=== PATIENT | female | born 1980 | race Hispanic/Latino ===

== ENCOUNTER 2019-03-05 22:25 | Emergency (ER) | payer OTHER ==
[2019-03-06] MEDS ORDERED: IBUPROFEN 600 MG TABLET ONE (00:30)
[2019-03-06] MEDS ORDERED: DIPHENHYDRAMINE HCL 25 MG CAPSULE ONE (00:31)
== END 2019-03-06 00:35 | disposition home or self-care (01) ==
LOC: EDH 22:25
DX: S60.464A Insect bite (nonvenomous) of right ring finger, initial encounter (principal); W57.XXXA Bitten or stung by nonvenomous insect and other nonvenomous arthropods, initial encounter; Y93.89 Activity, other specified; Y92.89 Other specified places as the place of occurrence of the external cause; Y99.8 Other external cause status
CPT/HCPCS: 99283; Q0163

== ENCOUNTER 2025-02-23 22:19 | Inpatient (IN) | payer BC ==
[~2025-02-23] VITALS: Ht 157.5 cm; Wt 79.2 kg
[2025-02-23 22:40] LABS: APPEARANCE,URINE CLEAR (CLEAR); GLUCOSE, URINE (UA) NEGATIVE (NEGATIVE); LEUKOCYTE ESTERASE ,URINE 75 Leu/uL (NEGATIVE); NITRATE,URINE NEGATIVE (NEGATIVE); OCCULT BLOOD,URINE NEGATIVE (NEGATIVE)
[2025-02-23 22:45] LABS: ADD UA MICROSCOPIC YES
[2025-02-23 22:48] LABS: SQUAMOUS EPITHELIAL CELL,UR FEW /HPF (0-2)
[2025-02-23 22:52] LABS: RAPID GROUP A STREP negative (NEGATIVE)
[2025-02-23 23:02] LABS: SARS-CoV-2, RNA, NAAT NEGATIVE SARS CoV-2 (NEGATIVE)
[2025-02-23] MEDS: 0.9%NACL 1000ML 1,000 ML IV ONE (23:02)
[2025-02-23 23:03] LABS: INFLUENZA TYPE A Negative For Type A (NEGATIVE); INFLUENZA TYPE B Negative For Type B (NEGATIVE)
[2025-02-23 23:09] LABS: IMMATURE GRANULOCYTE ABSOLUTE 0.01 K/uL (0-1); NUCLEATED RED BLOOD CELLS 0.0 % (0.0-0.19); PLATELET COUNT (AUTO) 170 K/uL (130-400); RED BLOOD CELL COUNT(AUTO) 4.09 MIL/uL (4.00-5.50); RED CELL DISTRIBUTION WIDTH 12.4 % (11.0-15.5); WHITE BLOOD COUNT (AUTO) 3.5 K/uL (4.8-10.8)
[2025-02-23 23:18] LABS: CREATININE 0.7 mg/dL (0.5-1.0); GLOMERULAR FILTR. RATE CALC 108.0 mL/min (>90); GLUCOSE,RANDOM 94.0 mg/dL (70-105); SODIUM SERUM 134.0 mmol/L (136-145); UREA NITROGEN, BLOOD 16.0 mg/dL (7-18)
[2025-02-23 23:22] LABS: ASPARTATE AMINOTRANSFERASE 80.0 U/L (10-37); TOTAL PROTEIN, SERUM 7.3 g/dL (6.0-8.3)
--- NOTE | 2025-02-24 00:22 | ERN ---
ED Note History of Present Illness Stated Complaint: C/O FEVER, HEADACHE,ABD PAIN, CHILLS Chief Complaint: Fever Time Seen by MD: 22:22 Time Seen by Midlevel: 22:22 Dictation: The patient is a 44-year-old female status post cholecystectomy on January 25 and hernia repair who presents to the emergency department with complaints of fevers onset Saturday night. Patient also reports right lower abdominal pain and right upper abdominal pain. Denies any nausea, vomiting, diarrhea. Denies any upper respiratory symptoms. Allergies: Coded Allergies: No Known Drug Allergies (Verified Allergy, 11/15/11) Past Medical History Past Medical History: No Pertinent History Surgical History: Cholecystectomy, Other Surgical History Other: HERNIA REPAIR LMP: Jan 29, 2025 RN Note Reviewed/Agreed w/PFSH: Yes Review of System Dictation Constitutional: Negative for chills, and weight loss positive for fever Eyes: Negative for injury, pain,redness, and discharge ENT: Negative for injury,pain or swelling Cardiovascular: Negative for chest pain, palpitations, and edema Respiratory: Negative for shortness of breath, cough, and wheezing, Abdomen/GI: Negative for nausea, vomiting, diarrhea, and constipation positive for abdominal pain Back: Negative for injury and pain : Negative for injury, bleeding and discharge MS/Extremity: Negative for injury and deformity Skin: Negative for rash, and discoloration Neuro: Negative for headache, weakness, numbness, tingling, and seizure Psych: Negative for suicide ideation, homicidal ideation, and hallucinations Initial Vital Sign VS Vital Signs Date Time Temp Pulse Resp B/P (MAP) Pulse Ox O2 Delivery O2 Flow Rate FiO2 02/23/25 22:22 102.6 104 20 126/82 97 Room Air 02/23/25 22:30 0 21 Physical Exam Dictation Vital Signs reviewed General Appearance: Alert, oriented x 3, no acute distress, well developed, nourished. Head and Face: non-traumatic. Eyes: PERRL, pink conjunctivas, eyelid no trauma, anterior chamber with arcus senilis. Ears: Pinnas intact and no signs of trauma or erythema ear canals clear and no discharge TM no erythema Nose: No discharge, no bleeding. Oropharynx: Mouth normal, tongue pink. pharynx clear,no erythema, tonsils no exudates, no abscesses noted, mucous membrane moist Neck: Supple, non-tender, no thyromegaly, no masses, no JVD, no bruits Breast:Deferred Chest:No tenderness, no crepitus, no paradoxical movement, no retractions Lungs:Clear, well-ventilated, symmetric, no rales, no wheezing, no rhonchi, no stridor, good breath sounds bilaterally Heart: Regular rate, regular rhythm, no murmur, no gallops Vascular: no peripheral edema, Abdomen: Soft, positive bowel sounds, nondistended, no guarding, Right upper quadrant, right lower quadrant tenderness no rebound, no masses no hepatomegaly, no splenomegaly, no Kendall's sign, no hernias. Rectal: Deferred Genital: Deferred Neurological: Normal speech, motor function intact, sensory function intact Musculoskeletal: Neck nontender, full range of motion, back nontender, full range of motion, Extremities: nontender, full range of motion Skin: Color pink, dry, no turgor, no rash, no lacerations, no abrasions, no contusions. Surgical incisions noted to right upper quadrant, no drainage, no erythema Lymphatic: Deferred Results (Laboratory/Radiology) Laboratory/Radiology Laboratory Tests Test 02/23/25 22:23 02/23/25 23:00 Urine Color YELLOW (YELLOW) Urine Appearance CLEAR (CLEAR) Urine pH 6.0 (5.0-8.0) Urine Specific [place] 1.031 (1.001-1.031) Urine Protein 10 mg/dL (NEGATIVE) H Urine Glucose (UA) NEGATIVE mg/dL (NEGATIVE) Urine Ketones 150 mg/dL (NEGATIVE) H Urine Occult Blood NEGATIVE (NEGATIVE) Urine Nitrate NEGATIVE (NEGATIVE) Urine Bilirubin NEGATIVE mg/dL (NEGATIVE) Urine Urobilinogen 2.0 mg/dL (0.2-1.0) H Urine Leukocyte Esterase 75 Liliana/uL (NEGATIVE) H Urine RBC 2-5 /HPF (0-1) H Urine WBC 2-5 /HPF (0-1) H Urine Squamous Epithelial Cells FEW /HPF (0-2) Urine Bacteria RARE /HPF (None Seen) Urine HCG, Qualitative NEGATIVE (NEGATIVE) Influenza Type A Antigen Negative For Type A Influenza Type B Antigen Negative For Type B SARS-CoV-2, RNA, NAAT NEGATIVE SARS CoV-2 Group A Streptococcus Rapid negative (NEGATIVE) White Blood Count 3.5 K/uL (4.8-10.8) L Red Blood Count 4.09 MIL/uL (4.00-5.50) Hemoglobin 12.3 g/dL (12.0-16.0) Hematocrit 36.2 % (36-48) Mean Corpuscular Volume 88.5 fL (79-99) Mean Corpuscular Hemoglobin 30.1 pg (27.0-33.0) Mean Corpuscular Hemoglobin Concent 34.0 g/dL (32.0-36.0) Red Cell Distribution Width 12.4 % (11.0-15.5) Platelet Count 170 K/uL (130-400) Mean Platelet Volume 10.1 fL (7.5-10.5) Immature Granulocyte % (Auto) 0.3 % (0-1) Neutrophils (%) (Auto) 70.8 % (40.0-77.0) Lymphocytes (%) (Auto) 20.2 % (21.0-51.0) L Monocytes (%) (Auto) 8.1 % (3.0-13.0) Eosinophils (%) (Auto) 0.0 % (0.0-8.0) Basophils (%) (Auto) 0.6 % (0.0-5.0) Neutrophils # (Auto) 2.5 K/uL (1.8-7.7) Lymphocytes # (Auto) 0.7 K/uL (1.0-4.8) L Monocytes # (Auto) 0.3 K/uL (0.1-1.0) Eosinophils # (Auto) 0.00 K/uL (0.00-0.70) Basophils # (Auto) 0.02 K/uL (0.00-0.20) Absolute Immature Granulocyte (auto 0.01 K/uL (0-1) Nucleated Red Blood Cells 0.0 % (0.0-0.19) Sodium Level 134 mmol/L (136-145) L Potassium Level 3.6 mmol/L (3.5-5.1) Chloride Level 98 mmol/L (101-111) L Carbon Dioxide Level 25 mmol/L (21-32) Blood Urea Nitrogen 16 mg/dL (7-18) Creatinine 0.7 mg/dL (0.5-1.0) Glomerular Filtration Rate Calc 108 mL/min (>90) Random Glucose 94 mg/dL (70-105) Total Calcium 8.7 mg/dL (8.5-10.1) Total Bilirubin 1.2 mg/dL (0.2-1.0) H Aspartate Amino Transf (AST/SGOT) 80 U/L (10-37) H Alanine Aminotransferase (ALT/SGPT) 150 U/L (12-78) H Alkaline Phosphatase 316 U/L (50-136) H Total Protein 7.3 g/dL (6.0-8.3) Albumin 3.6 g/dL (3.5-5.0) Labs Reviewed?: Yes ED Course ED Course Orders Procedure Category Date Status Time Urinalysis Profile LAB 02/23/25 Complete 22:21 Covid Rna Naat LAB 02/23/25 Complete 22:21 Influenza Type A & B, LAB 02/23/25 Complete Rapid 22:21 Rapid (Group A Strep) LAB 02/23/25 Complete 22:21 ,Urine Test LAB 02/23/25 Complete 22:24 Culture Urine JOSEMANUEL 02/23/25 In Process 22:45 Cbc With Differential LAB 02/23/25 Complete 22:45 Comprehensive LAB 02/23/25 Complete Metabolic Panel 22:45 0.9%Nacl 1000ml (Ns PHA 02/23/25 Complete 1000ml) 23:00 Ct Abdomen/Pelvis CT 02/23/25 Resulted W/Contrast 23:24 Iohexol (Omnipaque) PHA 02/24/25 Complete 01:29 Current Medications Medications (Trade) Dose Ordered Sig/Dionicio Route PRN Reason Start Time Stop Time Status Last Admin Dose Admin Iohexol (Omnipaque) 35,000 mg STK-MED ONCE IV 02/24/25 01:29 02/24/25 01:30 DC Sodium Chloride 1,000 ml @ 0 mls/hr ONCE ONCE IV 02/23/25 23:00 02/23/25 23:01 DC 02/23/25 23:02 Vital Signs Date Time Temp Pulse Resp B/P (MAP) Pulse Ox O2 Delivery O2 Flow Rate FiO2 02/24/25 01:33 98.6 88 20 110/70 97 Room Air* 0 21 02/24/25 00:31 100.8 96 20 108/62 98 Room Air* 0 21 02/23/25 22:30 102.0 98 20 117/68 99 Room Air* 0 02/23/25 22:22 102.6 104 20 126/82 97 Room Air Medical Decision Making MDM The patient is a 44-year-old female status post cholecystectomy on January 25 and hernia repair who presents to the emergency department with complaints of fevers onset Saturday night. Patient also reports right lower abdominal pain and right upper abdominal pain. Denies any nausea, vomiting, diarrhea. Denies any upper respiratory symptoms. CBC showed no leukocytosis, no anemia, chemistry showed elevated liver enzymes, elevated total bilirubin, mild hyponatremia, hypochloremia, normal renal function, serology negative Differential diagnosis: Upper respiratory infection, gastroenteritis, sepsis, appendicitis Rationale: Tests considered and ordered secondary to shared decision making include: labs, ECG and radiology Previous outside records reviewed: Old ER visits. Risk of complication and/or morbidity or mortality of patient management: None Medications-Per medication reconciliation Need for hospitalization: Patient does meet criteria for hospitalization. Need for emergency major/minor surgery: No There are no social concerns with this patient. Prescription drug management Prescriptions will include symptomatic care Patient's prior external medical records from other ER visits were reviewed by me as indicated. Prior testing and results from previous visits were reviewed. Prior tests were taken into account with medical decision making and resource utilization, independent historian/historians were used to obtain complete medical history. I independently interpreted the test that were performed, results were reviewed by me and considered findings on radiology if ordered. Medical management and examination interpretation discussions were had by me wit h other qualified healthcare professionals as indicated for the patient's care. Patient will be admitted under the care of hospitalist group. Spoke to Dr. Ramirez request an MRCP she will be performed. DX & DISP Disposition: Inpatient Decision to Admit Time: 04:19 Departure Impression: Primary Impression: Cholecystitis Additional Impression: Elevated liver enzymes Condition: Stable Referrals: EZ DOMINGUEZ PA-C (PCP) KELTON RICE Feb 24, 2025 00:21 YFN PALMA MD Feb 24, 2025 04:19
[2025-02-24] MEDS ORDERED: IOHEXOL 350 MG/ML 100ML INFUS..BTL IV ONE (01:29)
--- NOTE | 2025-02-24 01:43 | NUR ---
TAKEN TO CT SCAN
--- NOTE | 2025-02-24 03:12 | HMCIMG ---
EXAM: CT Abdomen and Pelvis with IV contrast CLINICAL HISTORY: Pain. TECHNIQUE: Postcontrast thin collimated axial CT images of the abdomen and pelvis were obtained, with sagittal and coronal reformatted images also submitted. CT scan is done according to ALARA (As Low As Reasonably Achievable). COMPARISON: None. FINDINGS: Mild subsegmental atelectasis in the included lungs. Status post cholecystectomy. Mild fatty liver. No focal abnormality within the pancreas, spleen, adrenals, or kidneys. The urinary bladder is empty with questionable mild cystitis. There is a 1.3 cm intramural fibroid around the right side of the uterus. Unremarkable ovaries. No obvious bowel wall thickening, dilatation, or obstruction. No obvious bowel wall thickening, dilatation, or obstruction. Unremarkable appendix. A component of mild constipation is present in the colon. Grossly unremarkable abdominal vessels. No pathological lymphadenopathy in the abdomen or pelvis. No ascites or pneumoperitoneum. No acute bony abnormality is evident. IMPRESSIONS: Uterine fibroid. Mild fatty liver. The urinary bladder is empty with questionable mild cystitis. A component of mild constipation is present in the colon. /[place]
--- NOTE | 2025-02-24 05:01 | NUR ---
PATIENT GOING TO ULTRASOUND
--- NOTE | 2025-02-24 05:44 | HMCIMG ---
EXAM: US Abdomen, Right Upper Quadrant. CLINICAL HISTORY: Right upper quadrant pain. TECHNIQUE: Right upper quadrant sonography performed with image documentation. COMPARISON: None provided. FINDINGS: The liver is normal in size and contour and measures up to 6.2 cm craniocaudally. Increased echogenicity of the liver parenchyma, compatible with fatty liver. Status post cholecystectomy. The CBD measures up to 4 mm in diameter. The visualized head and body of the pancreas are within normal limits. The pancreatic tail is obscured due to the bowel gases. The right kidney measures 9.9 x 4.9 x 4.5 cm, and it is normal in size and texture. IMPRESSION: No acute process. Mild fatty liver. Status post cholecystectomy. /Vee
[2025-02-24 05:53] LABS: IMMATURE GRANULOCYTE ABSOLUTE 0.01 K/uL (0-1); NUCLEATED RED BLOOD CELLS 0.0 % (0.0-0.19); PLATELET COUNT (AUTO) 152 K/uL (130-400); RED BLOOD CELL COUNT(AUTO) 3.97 MIL/uL (4.00-5.50); RED CELL DISTRIBUTION WIDTH 12.3 % (11.0-15.5); WHITE BLOOD COUNT (AUTO) 4.0 K/uL (4.8-10.8)
--- NOTE | 2025-02-24 05:59 | HP ---
[facility] HISTORY AND PHYSICAL Date of Service: Feb 24, 2025 Time of Service: 05:45 PCP: Diaz Humphrey HISTORY OF PRESENT ILLNESS: This is a 44-year-old female with no pertinent medical history who recently had a lap cholecystectomy on January [address] Cruz in [facility] who presents to the ED for complaints of abdominal pain, fever and chills started three days ago Saturday night.Patient reports she doing fine at home until last Saturday she satrted not feeling well having some chills and Saturday she started having on and off Fever the highest temperature recorded was T102 at home.Patient reports she has been having occasional abdominal pain and initially she thought it was because she just had a surgical procedure and that is expected however she noticed that pain comes and goes but when it comes it is an excruciating pain and radiates to her rectal area she said so who was at her bedside during my evaluation convinced her to come to the hospital since she just had a recent surgery thus prompted this admission.On examination patient is awake ,alert ,coherent and appears uncomfortable 7/10 pain level.Patient denies nausea,vomiting,diarrhea ,chest pain,palpitation,cough and shortness of breath.Patient reports her last bowel movement was today and it was normal. Latest vital signs temperature 98.6, heart rate 88, blood pressure 110/70 saturation 97% on room air. Labs: WBC 3.5, hemoglobin 12, hematocrit 36, platelet count 170 neutrophils 70. Sodium 134, chloride 98, total bilirubin 1.2, AST 80, ALT 150, alkaline phosphatase 316. Urinalysis positive with esterase. Influenza type a and B negative SARS COVID negative group a strep negative. CT abdomen and pelvis with contrast result revealed uterine fibroid, mild fatty liver, the urinary bladder is empty with questionable mild cystitis. A component of mild constipation is present in the colon. There is an abdominal ultrasound done and result is still pending at this time. While in the ER patient received 1 L NS bolus. As per ER MD report Dr. Diaz was notified and recommended for an MRCP. We will admit patient for further medical management. REVIEW OF SYSTEMS CONSTITUTIONAL: Fever and chills Denies night sweats. No unintentional weight loss reported. NEUROLOGICAL: Denies headache, amaurosis fugax, motor weakness, sensory defi cit, vertigo/spinning sensation, gait abnormalities, or tremors. ENT: No hearing loss, otalgia, otorrhea, rhinitis, rhinorrhea, hoarseness, or sore throat. CARDIOVASCULAR: Denies any exertional angina, dyspnea on exertion, orthopnea, paroxysmal nocturnal dyspnea, palpitations, life-threatening arrhythmias, claudication. PULMONARY: Denies any shortness of breath, cough, phlegm/sputum, hemoptysis, pleuritic chest pain. SLEEP: Denies morning headaches, daytime somnolence or napping. Denies difficulty falling asleep, staying asleep, waking from sleep. Denies knowledge of snoring. GASTROINTESTINAL: Abdominal pain Denies any type of dysphagia to either liquids or solids. Denies nausea, vomiting, pyrosis, early satiety, diarrhea, constipation, or changes in stool consistency or caliber. Denies coffee-ground emesis, hematemesis, hematochezia, or melanotic stools. GENITOURINARY: Denies frequency, urgency, nocturia, hematuria or incontinence (Storage/Irritative symptoms.) Low urinary stream, straining to void, urinary intermittency or hesitancy, splitting of the voiding stream, terminal dribbling. ENDOCRINOLOGIC: Denies polyuria, polydipsia, polyphagia or heat/cold intolerances. HEMATOLOGIC: Denies thrombophilia/previous clots, or coagulopathy/bleeding disorders. ONCOLOGIC: Denies personal history of malignancy. DERMATOLOGIC: Denies rashes or pruritus. PSYCHIATRIC: Denies any suicidal or homicidal ideation. Denies hallucinations. PAST MEDICAL HISTORY: [ Patient denies ] PAST SURGICAL HISTORY: [ Status post laparoscopic cholecystectomy performed on January [address] Cruz in [facility] and umbilical hernia repair] PAST SOCIAL HISTORY: [ Patient lives with . Patient denies alcohol tobacco and recreational drug use ] FAMILY HISTORY: [ Noncontributory ] Coded Allergies: No Known Drug Allergies (Verified Allergy, 11/15/11) PHYSICAL EXAM GENERAL APPEARANCE: The patient is awake, alert, and oriented, in no acute cardiopulmonary distress. NEUROLOGICAL: Cranial nerves II-XII grossly intact. Motor is 5/5 in bilateral upper and lower extremities proximal to distal. No sensory deficits. HEENT: Face is symmetric. Pupils are equal and reactive. Extraocular movements are intact. NECK: Supple. No JVD. No thyromegaly. No submental, submandibular, pre- /postauricular, occipital or supraclavicular lymphadenopathy. CHEST: Normal chest expansion. No Telemetry. LUNGS: Absence of any rales, rhonchi or any wheezing. CARDIOVASCULAR: Regular. S1 and S2 normal. No appreciable rubs, murmurs or gallops. ABDOMEN: Diffuse abdominal tenderness on palpation Soft and nondistended. There is no rebound, voluntary guarding, or rigidity. : Deferred. No [place]. EXTREMITIES: Non-edematous and not cyanotic. No clubbing. Good capillary refill. SKIN: No skin breakdown. Vital Sign (Last 24 Hours) 02/24/25 01:33 Temp 98.6 Pulse 88 Resp 20 B/P (MAP) 110/70 Pulse Ox 97 O2 Delivery Room Air* O2 Flow Rate 0 FiO2 21 LABS: Laboratory: Test 02/23/25 23:00 02/23/25 22:23 Range/Units White Blood Count 3.5 L 4.8-10.8 K/uL Red Blood Count 4.09 4.00-5.50 MIL/uL Hemoglobin 12.3 12.0-16.0 g/dL Hematocrit 36.2 36-48 % Mean Corpuscular Volume 88.5 79-99 fL Mean Corpuscular Hemoglobin 30.1 27.0-33.0 pg Mean Corpuscular Hemoglobin Concent 34.0 32.0-36.0 g/dL Red Cell Distribution Width 12.4 11.0-15.5 % Platelet Count 170 130-400 K/uL Mean Platelet Volume 10.1 7.5-10.5 fL Immature Granulocyte % (Auto) 0.3 0-1 % Neutrophils (%) (Auto) 70.8 40.0-77.0 % Lymphocytes (%) (Auto) 20.2 L 21.0-51.0 % Monocytes (%) (Auto) 8.1 3.0-13.0 % Eosinophils (%) (Auto) 0.0 0.0-8.0 % Basophils (%) (Auto) 0.6 0.0-5.0 % Neutrophils # (Auto) 2.5 1.8-7.7 K/uL Lymphocytes # (Auto) 0.7 L 1.0-4.8 K/uL Monocytes # (Auto) 0.3 0.1-1.0 K/uL Eosinophils # (Auto) 0.00 0.00-0.70 K/uL Basophils # (Auto) 0.02 0.00-0.20 K/uL Absolute Immature Granulocyte (auto 0.01 0-1 K/uL Nucleated Red Blood Cells 0.0 0.0-0.19 % Sodium Level 134 L 136-145 mmol/L Potassium Level 3.6 3.5-5.1 mmol/L Chloride Level 98 L 101-111 mmol/L Carbon Dioxide Level 25 21-32 mmol/L Blood Urea Nitrogen 16 7-18 mg/dL Creatinine 0.7 0.5-1.0 mg/dL Glomerular Filtration Rate Calc 108 >90 mL/min Random Glucose 94 70-105 mg/dL Total Calcium 8.7 8.5-10.1 mg/dL Total Bilirubin 1.2 H 0.2-1.0 mg/dL Aspartate Amino Transf (AST/SGOT) 80 H 10-37 U/L Alanine Aminotransferase (ALT/SGPT) 150 H 12-78 U/L Alkaline Phosphatase 316 H 50-136 U/L Total Protein 7.3 6.0-8.3 g/dL Albumin 3.6 3.5-5.0 g/dL Urine Color YELLOW YELLOW Urine Appearance CLEAR CLEAR Urine pH 6.0 5.0-8.0 Urine Specific [place] 1.031 1.001-1.031 Urine Protein 10 H NEGATIVE mg/dL Urine Glucose (UA) NEGATIVE NEGATIVE mg/dL Urine Ketones 150 H NEGATIVE mg/dL Urine Occult Blood NEGATIVE NEGATIVE Urine Nitrate NEGATIVE NEGATIVE Urine Bilirubin NEGATIVE NEGATIVE mg/dL Urine Urobilinogen 2.0 H 0.2-1.0 mg/dL Urine Leukocyte Esterase 75 H NEGATIVE Liliana/uL Urine RBC 2-5 H 0-1 /HPF Urine WBC 2-5 H 0-1 /HPF Urine Squamous Epithelial Cells FEW 0-2 /HPF Urine Bacteria RARE None Seen /HPF Urine HCG, Qualitative NEGATIVE NEGATIVE Influenza Type A Antigen Negative For Type A NEGATIVE Influenza Type B Antigen Negative For Type B NEGATIVE SARS-CoV-2, RNA, NAAT NEGATIVE SARS CoV-2 NEGATIVE Group A Streptococcus Rapid negative NEGATIVE DIAGNOSTICS / RADIOLOGY: [ ] ASSESSMENT: Abdominal pain with fever and elevated liver enzymes rule out biliary obstruction versus cholangitis POA Recent status post lap cholecystectomy POA Obesity POA Acute cystitis POA Hyponatremia POA Hypochloremia POA Uterine fibroid per CT POA Mild fatty liver per CT POA PLAN: We will admit patient in medical surgical We will keep nothing by mouth We will start NS @ 100 ml / hr x2 bags and re evaluate We will start on Rocephin 1 g IV b.i.d. for empiric coverage We will start Protonix 40 mg IV daily for GI prophylaxis We will replace electrolytes as needed per protocol We will add prn medication for fever,pain,cough , nausea and vomiting We will obtain MRCP follow-up result Follow-up abdominal ultrasound result Gastroenterology consulted pending to evaluate the patient We will request labs in am Further orders to follow depending on above results Case discussed with attending physician and came up with above treatment and pl an of care. ADVANCED CARE PLANNING 1. Which of the following were discussed? Hospice Care - No Therapeutic options - Yes Advance Directives - No Other discussions - 2. Discussed with who? Patient 3. Voluntary nature of this service was explained to the patient? Yes 4. Amount of time spent - _23 min 5. Reviewed by Physician? (if this service was performed by NPP) Yes Patient seen and examined by me. Agree with note by CONSUMER AFFAIRS SPECIALIST SEE ADDITIONAL ORDERS PER CHART DISCUSSED WITH NURSING STAFF MEERA MCFARLANEP Feb 24, 2025 05:59
[2025-02-24] MEDS: 0.9%NACL 1000ML 1,000 ML IV SCH (06:06)
[2025-02-24 06:19] LABS: ASPARTATE AMINOTRANSFERASE 67.0 U/L (10-37); CREATININE 0.7 mg/dL (0.5-1.0); GLOMERULAR FILTR. RATE CALC 108.0 mL/min (>90); GLUCOSE,RANDOM 72.0 mg/dL (70-105); SODIUM SERUM 137.0 mmol/L (136-145); TOTAL PROTEIN, SERUM 7.0 g/dL (6.0-8.3); UREA NITROGEN, BLOOD 12.0 mg/dL (7-18)
[2025-02-24 08:07] LABS: BAND NEUTROPHILS % (MANUAL) 2 % (0-2); LYMPHOCYTES % (MANUAL) 22 % (22-44); MONOCYTES % (MANUAL) 5 % (2-9); REACTIVE LYMPHOCYTES 3 % (0-0); SEGMENTED NEUTROPHILS % 68 % (40-70)
[2025-02-24 08:08] LABS: MAN.DIFF COMMENT-IMPRESSION MANUAL DIFFERENTIAL; PLATELET MORPHOLOGY COMMENT ADEQUATE; WBC MORPHOLOGY REACTIVE LYMPHS 1+
--- NOTE | 2025-02-24 08:49 | NUR ---
ASSUMED CARE AT THIS TIME
--- NOTE | 2025-02-24 11:14 | PN ---
[facility] PROGRESS NOTE Date of Service: Feb 24, 2025 Time of Service: 11:13 SUBJECTIVE: This is a case of a 44-year-old female with no pertinent past medical history who recently underwent laparoscopic cholecystectomy at [facility] on January 26 2025, who presented to the ED with 3 day history of intermittent fever, chills, intermittent squeezing type, severe right-sided abdominal pain radiating to the rectum. Initial vitals temperature 102.6 F, pulse rate 104, respiratory rate 20, blood pressure 126/82 meeting the SIRS criteria. Initial labs WBC 3.5, hemoglobin 12, total bilirubin 1.2, AST 80, ALT 150, alkaline phosphatase 316. Urinalysis positive for leukocyte esterase, ketones, RBC and WBC. Influenza type a and B, SARS COVID, group a strep test results are negative. CT abdomen and pelvis with contrast result revealed uterine fibroid of 1.3cm, mild fatty liver, mild cystitis, CBD 4mm and a component of mild constipation is present in the colon. Abdominal ultrasound revealed no acute process, fatty liver and post cholecystectomy changes. GI was consulted. She is admitted for further workup and treatment. Patient is seen and examined at the bedside today. Vitals temperature 98.6, blood pressure 112/65, respiratory rate 20, pulse rate 82, SpO2 greater than 95% on room air. No acute events last night. She complains of right upper quadrant and epigastric abdominal pain, nausea. She denies headache, chest pain, palpitations, difficulty in breathing, diarrhea. Labs WBC 4, hemoglobin 12, total bilirubin 1.1, direct bilirubin 0.5, AST improved from 80-67, ALT improved from 150-127, alkaline phosphatase 315. She underwent MRCP today, results are pending. REVIEW OF SYSTEMS CONSTITUTIONAL: Denies night sweats. No unintentional weight loss reported. NEUROLOGICAL: Denies headache, motor weakness, sensory deficit, vertigo/spinning sensation, gait abnormalities, or tremors. ENT: No hearing loss, otalgia, otorrhea, rhinitis, rhinorrhea, hoarseness, or sore throat. CARDIOVASCULAR: Denies any exertional angina, dyspnea on exertion, orthopnea, paroxysmal nocturnal dyspnea, palpitations, life-threatening arrhythmias, claudication. PULMONARY: Denies any shortness of breath, cough, phlegm/sputum, hemoptysis, pleuritic chest pain. SLEEP: Denies morning headaches, daytime somnolence or napping GASTROINTESTINAL: Right upper quadrant and epigastric abdominal pain GENITOURINARY: Denies frequency, urgency, nocturia, hematuria or incontinence HEMATOLOGIC: Denies thrombophilia/previous clots, or coagulopathy/bleeding disorders. ONCOLOGIC: Denies personal history of malignancy. DERMATOLOGIC: Denies rashes or pruritus. PSYCHIATRIC: Denies any suicidal or homicidal ideation. Denies hallucinations. PHYSICAL EXAM GENERAL APPEARANCE: The patient is awake, alert, and oriented, in no acute cardiopulmonary distress. NEUROLOGICAL: Cranial nerves II-XII grossly intact. Motor is 5/5 in bilateral upper and lower extremities proximal to distal. No sensory deficits. HEENT: Face is symmetric. Pupils are equal and reactive. Extraocular movements are intact. NECK: Supple. No JVD CHEST: Normal chest expansion. No Telemetry. LUNGS: Absence of any rales, rhonchi or any wheezing. CARDIOVASCULAR: Regular. S1 and S2 normal. No appreciable rubs, murmurs or gallops. ABDOMEN: abdominal tenderness on palpation more prominent in the RUQ, epigastric region Soft and nondistended. There is no rebound, voluntary guardi ng, or rigidity. : Deferred. No [place]caraz. EXTREMITIES: Non-edematous and not cyanotic. No clubbing. Good capillary refill. SKIN: No skin breakdown. Vital Signs (last 8hr) Date Time Temp Pulse Resp B/P (MAP) Pulse Ox O2 Delivery O2 Flow Rate FiO2 02/24/25 06:02 82 20 112/65 98 Room Air* 0 21 LABS: Laboratory: Test 02/24/25 08:00 02/24/25 05:48 02/23/25 22:23 Range/Units Lipase 42 16-77 U/L White Blood Count 4.0 L 4.8-10.8 K/uL Red Blood Count 3.97 L 4.00-5.50 MIL/uL Hemoglobin 12.0 12.0-16.0 g/dL Hematocrit 35.7 L 36-48 % Mean Corpuscular Volume 89.9 79-99 fL Mean Corpuscular Hemoglobin 30.2 27.0-33.0 pg Mean Corpuscular Hemoglobin Concent 33.6 32.0-36.0 g/dL Red Cell Distribution Width 12.3 11.0-15.5 % Platelet Count 152 130-400 K/uL Mean Platelet Volume 10.4 7.5-10.5 fL Immature Granulocyte % (Auto) 0.3 0-1 % Neutrophils (%) (Auto) 67.4 40.0-77.0 % Lymphocytes (%) (Auto) 24.2 21.0-51.0 % Monocytes (%) (Auto) 7.6 3.0-13.0 % Eosinophils (%) (Auto) 0.0 0.0-8.0 % Basophils (%) (Auto) 0.5 0.0-5.0 % Neutrophils # (Auto) 2.7 1.8-7.7 K/uL Lymphocytes # (Auto) 1.0 1.0-4.8 K/uL Monocytes # (Auto) 0.3 0.1-1.0 K/uL Eosinophils # (Auto) 0.00 0.00-0.70 K/uL Basophils # (Auto) 0.02 0.00-0.20 K/uL Absolute Immature Granulocyte (auto 0.01 0-1 K/uL Segmented Neutrophils % 68 40-70 % Band Neutrophils % 2 0-2 % Lymphocytes % (Manual) 22 22-44 % Monocytes % (Manual) 5 2-9 % Nucleated Red Blood Cells 0.0 0.0-0.19 % Differential Comment MANUAL DIFFERENTIAL Reactive Lymphocytes 3 H 0-0 % White Cell Morphology Comment REACTIVE LYMPHS 1+ Platelet Morphology Comment ADEQUATE Red Blood Cell Morphology NORMAL Sodium Level 137 136-145 mmol/L Potassium Level 4.0 3.5-5.1 mmol/L Chloride Level 102 101-111 mmol/L Carbon Dioxide Level 24 21-32 mmol/L Blood Urea Nitrogen 12 7-18 mg/dL Creatinine 0.7 0.5-1.0 mg/dL Glomerular Filtration Rate Calc 108 >90 mL/min Random Glucose 72 70-105 mg/dL Lactic Acid Level 1.1 0.8-2.5 mmol/L Total Calcium 8.5 8.5-10.1 mg/dL Magnesium Level 2.00 1.80-2.40 mg/dL Total Bilirubin 1.1 H 0.2-1.0 mg/dL Direct Bilirubin 0.5 H 0.0-0.3 mg/dL Aspartate Amino Transf (AST/SGOT) 67 H 10-37 U/L Alanine Aminotransferase (ALT/SGPT) 127 H 12-78 U/L Alkaline Phosphatase 315 H 50-136 U/L Total Protein 7.0 6.0-8.3 g/dL Albumin 3.4 L 3.5-5.0 g/dL Procalcitonin 0.19 0.05-0.5 ng/mL Urine Color YELLOW YELLOW Urine Appearance CLEAR CLEAR Urine pH 6.0 5.0-8.0 Urine Specific [place] 1.031 1.001-1.031 Urine Protein 10 H NEGATIVE mg/dL Urine Glucose (UA) NEGATIVE NEGATIVE mg/dL Urine Ketones 150 H NEGATIVE mg/dL Urine Occult Blood NEGATIVE NEGATIVE Urine Nitrate NEGATIVE NEGATIVE Urine Bilirubin NEGATIVE NEGATIVE mg/dL Urine Urobilinogen 2.0 H 0.2-1.0 mg/dL Urine Leukocyte Esterase 75 H NEGATIVE Liliana/uL Urine RBC 2-5 H 0-1 /HPF Urine WBC 2-5 H 0-1 /HPF Urine Squamous Epithelial Cells FEW 0-2 /HPF Urine Bacteria RARE None Seen /HPF Urine HCG, Qualitative NEGATIVE NEGATIVE Influenza Type A Antigen Negative For Type A NEGATIVE Influenza Type B Antigen Negative For Type B NEGATIVE SARS-CoV-2, RNA, NAAT NEGATIVE SARS CoV-2 NEGATIVE Group A Streptococcus Rapid negative NEGATIVE Current Medications Medications (Trade) Dose Ordered Sig/Dionicio Route PRN Reason Start Time Stop Time Status Last Admin Dose Admin Ceftriaxone Sodium (ROCEphine 1G INJ) 1 gm BID IVPB 02/24/25 09:00 03/06/25 08:59 02/24/25 10:15 1 GM Morphine Sulfate (morPHINE 4MG SYG) 2 mg Q4H PRN IVP SEVERE PAIN (7-10) 02/24/25 06:00 03/03/25 05:59 Pantoprazole Sodium (PROTonix 40MG INJ) 40 mg DAILY IVP 02/24/25 09:00 03/26/25 08:59 02/24/25 10:14 40 MG Sodium Chloride 1,000 ml @ 100 mls/hr Q10H IV 02/24/25 05:30 03/26/25 05:29 02/24/25 06:06 100 MLS/HR DIAGNOSTICS / RADIOLOGY: PATIENT: BALJIT LISA MR#: [id number] : 1980 SEX: F AGE: 44 LOCATION: [facility] ORDER [id number] STATUS: REG ER REPORT#: [id number] SERVICE 0419 REASON: ruq pain ORDERING PHYSICIAN: YFN PALMA MD PROCEDURE: [id number] - US ABDOMINAL RUQ\LTD EXAM: US Abdomen, Right Upper Quadrant. CLINICAL HISTORY: Right upper quadrant pain. TECHNIQUE: Right upper quadrant sonography performed with image documentation. COMPARISON: None provided. FINDINGS: The liver is normal in size and contour and measures up to 6.2 cm craniocaudally. Increased echogenicity of the liver parenchyma, compatible with fatty liver. Status post cholecystectomy. The CBD measures up to 4 mm in diameter. The visualized head and body of the pancreas are within normal limits. The pancreatic tail is obscured due to the bowel gases. The right kidney measures 9.9 x 4.9 x 4.5 cm, and it is normal in size and texture. IMPRESSION: No acute process. Mild fatty liver. Status post cholecystectomy. /[place] DICTATED BY: ADRI JOHNSON Jr., MD DATE: 02/24/25642 ELECTRONICALLY SIGNED BY: ADRI JOHNSON Jr., MD DATE: 02/24/25642 ASSESSMENT: Sepsis secondary to possible cholangitis, POA Elevated liver enzymes, POA Recent status post lap cholecystectomy POA Obesity POA Acute cystitis POA Hyponatremia POA, resolved Hypochloremia POA, resolved Uterine fibroid per CT POA Mild fatty liver per CT POA PLAN: NPO Admit the patient to Med/Surg Sepsis secondary to possible cholangitis, POA Initial vitals temperature 102.6 F, pulse rate 104, respiratory rate 20, blood pressure 126/82 and WBC 3.5 with suspected cholangitis [fever+RUQ pain+elevated liver enzymes] suggest sepsis Continue IV fluids @ 100ml/hr We will add the antibiotic Metronidazole to Rocephin for broad spectrum coverage We will order blood culture tests Continue prn meds for pain, fever, nausea, vomiting GI was consulted and we will follow their recommendations We will follow up on MRCP results Elevated liver enzymes, POA, improving AST improved from 80-67, ALT improved from 150-127, alkaline phosphatase 315 Repeat LFTs tomorrow Acute cystitis POA Urine culture positive for leukocyte esterase indicating infection Continue IV antibiotics Continue Protonix 40 mg IV daily for GI prophylaxis Continue SCDs for DVT prophylaxis Monitor electrolytes and replace them according to the protocol ATTESTATION BY PHYSICIAN I have seen and examined the patient. I reviewed the documentation, medical decision making, and treatment plan as noted by the resident above. I agree with the findings and plan of care. HEATHER WARREN IV, MD KONDREDDY, PRIYANKA MD Feb 24, 2025 11:14
--- NOTE | 2025-02-24 11:18 | NUR ---
PT JUST RETURNED FROM MRI/MRCP.
--- NOTE | 2025-02-24 12:01 | NUR ---
GI CONSULT DONE THEY WILL SEE PATIENT
--- NOTE | 2025-02-24 14:19 | CONS ---
GASTROENTEROLOGY CONSULTATION NOTE Date of Consultation: Feb 24, 2025 Time of Consultation: 14:17 History of Present Illness: [44-year-old female patient who presented to the emergency room with complaints of fever since Saturday night and abdominal pain. Patient is status post cholecystectomy and hernia repair on January [address] Cruz at [facility]. Initial WBCs of 3.5, have trended up to 4.0 today. Hemoglobin 12.0, hematocrit 25.7, platelets 152. Total bilirubin 1.1, direct bilirubin 0.5, AST 67, ALT 127, alkaline phosphatase 315. Albumin 3.4. Please 42. CT of abdomen and pelvis with IV contrast showing uterine fibroid, mild fatty liver, urinary bladder is empty with questionable mild cystitis, mild constipation is present in the colon. Abdominal ultrasound showing no acute process, mild fatty liver, status post cholecystectomy. CBD measuring up to 4 mm in diameter. MRCP has been done but results are pending. On exam patient is awake, alert, and oriented x3 in no acute distress. Respirations are unlabored. Patient reports epigastric and right upper quadrant pain that is constant. Informed of pending MRCP results and possible need for ERCP. Patient verbalized understanding. ] Review of Systems: CONSTITUTIONAL: No malaise or change in sensation of wellbeing. ENMT: No rhinorrhea, otorrhea, sinus pain, ear ache. CARDIOVASCULAR: No angina, palpitations, orthopnea or paroxysmal dyspnea. RESPIRATORY: No SOB. GASTROINTESTINAL: No abdominal pain, nausea, vomiting, diarrhea, hematemesis, melena or change in the patient's habitual bowel movements consistency/number. GENITOURINARY: No dysuria, hematuria or change in bladder continence. MUSCULOSKELETAL: No new muscle pain or decrease in muscular strength. No new joint swelling, redness or tenderness. SKIN: No new rash. Past Medical History: [ Patient denies ] PAST SURGICAL HISTORY: [ Status post laparoscopic cholecystectomy performed on January [address] Cruz in [facility] and umbilical hernia repair] PAST SOCIAL HISTORY: [ Patient lives with . Patient denies alcohol tobacco and recreational drug use ] FAMILY HISTORY: [ Noncontributory ] Coded Allergies: Coded Allergies: No Known Drug Allergies (Verified Allergy, 11/15/11) Physical Exam: GEN: Awake, alert, oriented in person, time and place, and in no acute distress. HEENT: No rhinorrhea. Oral pharyngeal mucosa is pink, moist and within normal limits. CHEST: Lung auscultation revealed normal breath sounds bilaterally. CARDIAC:Heart sounds are regular. ABD: Soft, tender to upper abdomen and not distended. No peritoneal signs on palpation. Normal bowel sounds. Last bm 02/24/25 EXT: No cyanosis or clubbing. No edema. SKIN: Intact. No rashes. NEURO: Alert and oriented to name, place and person.No focal motor deficits. Normal speech. Vital Sign (Last 24 Hours) 02/24/25 02/24/25 01:33 06:02 Temp 98.6 Pulse 82 Resp 20 B/P (MAP) 112/65 Pulse Ox 98 O2 Delivery Room Air* O2 Flow Rate 0 FiO2 21 Laboratory: [ ] Laboratory: Test 02/24/25 08:00 02/24/25 05:48 02/23/25 22:23 Range/Units Lipase 42 16-77 U/L White Blood Count 4.0 L 4.8-10.8 K/uL Red Blood Count 3.97 L 4.00-5.50 MIL/uL Hemoglobin 12.0 12.0-16.0 g/dL Hematocrit 35.7 L 36-48 % Mean Corpuscular Volume 89.9 79-99 fL Mean Corpuscular Hemoglobin 30.2 27.0-33.0 pg Mean Corpuscular Hemoglobin Concent 33.6 32.0-36.0 g/dL Red Cell Distribution Width 12.3 11.0-15.5 % Platelet Count 152 130-400 K/uL Mean Platelet Volume 10.4 7.5-10.5 fL Immature Granulocyte % (Auto) 0.3 0-1 % Neutrophils (%) (Auto) 67.4 40.0-77.0 % Lymphocytes (%) (Auto) 24.2 21.0-51.0 % Monocytes (%) (Auto) 7.6 3.0-13.0 % Eosinophils (%) (Auto) 0.0 0.0-8.0 % Basophils (%) (Auto) 0.5 0.0-5.0 % Neutrophils # (Auto) 2.7 1.8-7.7 K/uL Lymphocytes # (Auto) 1.0 1.0-4.8 K/uL Monocytes # (Auto) 0.3 0.1-1.0 K/uL Eosinophils # (Auto) 0.00 0.00-0.70 K/uL Basophils # (Auto) 0.02 0.00-0.20 K/uL Absolute Immature Granulocyte (auto 0.01 0-1 K/uL Segmented Neutrophils % 68 40-70 % Band Neutrophils % 2 0-2 % Lymphocytes % (Manual) 22 22-44 % Monocytes % (Manual) 5 2-9 % Nucleated Red Blood Cells 0.0 0.0-0.19 % Differential Comment MANUAL DIFFERENTIAL Reactive Lymphocytes 3 H 0-0 % White Cell Morphology Comment REACTIVE LYMPHS 1+ Platelet Morphology Comment ADEQUATE Red Blood Cell Morphology NORMAL Sodium Level 137 136-145 mmol/L Potassium Level 4.0 3.5-5.1 mmol/L Chloride Level 102 101-111 mmol/L Carbon Dioxide Level 24 21-32 mmol/L Blood Urea Nitrogen 12 7-18 mg/dL Creatinine 0.7 0.5-1.0 mg/dL Glomerular Filtration Rate Calc 108 >90 mL/min Random Glucose 72 70-105 mg/dL Lactic Acid Level 1.1 0.8-2.5 mmol/L Total Calcium 8.5 8.5-10.1 mg/dL Magnesium Level 2.00 1.80-2.40 mg/dL Total Bilirubin 1.1 H 0.2-1.0 mg/dL Direct Bilirubin 0.5 H 0.0-0.3 mg/dL Aspartate Amino Transf (AST/SGOT) 67 H 10-37 U/L Alanine Aminotransferase (ALT/SGPT) 127 H 12-78 U/L Alkaline Phosphatase 315 H 50-136 U/L Total Protein 7.0 6.0-8.3 g/dL Albumin 3.4 L 3.5-5.0 g/dL Procalcitonin 0.19 0.05-0.5 ng/mL Urine Color YELLOW YELLOW Urine Appearance CLEAR CLEAR Urine pH 6.0 5.0-8.0 Urine Specific [place] 1.031 1.001-1.031 Urine Protein 10 H NEGATIVE mg/dL Urine Glucose (UA) NEGATIVE NEGATIVE mg/dL Urine Ketones 150 H NEGATIVE mg/dL Urine Occult Blood NEGATIVE NEGATIVE Urine Nitrate NEGATIVE NEGATIVE Urine Bilirubin NEGATIVE NEGATIVE mg/dL Urine Urobilinogen 2.0 H 0.2-1.0 mg/dL Urine Leukocyte Esterase 75 H NEGATIVE Liliana/uL Urine RBC 2-5 H 0-1 /HPF Urine WBC 2-5 H 0-1 /HPF Urine Squamous Epithelial Cells FEW 0-2 /HPF Urine Bacteria RARE None Seen /HPF Urine HCG, Qualitative NEGATIVE NEGATIVE Influenza Type A Antigen Negative For Type A NEGATIVE Influenza Type B Antigen Negative For Type B NEGATIVE SARS-CoV-2, RNA, NAAT NEGATIVE SARS CoV-2 NEGATIVE Group A Streptococcus Rapid negative NEGATIVE Current Medications Medications (Trade) Dose Ordered Sig/Dionicio Route PRN Reason Start Time Stop Time Status Last Admin Dose Admin Ceftriaxone Sodium (ROCEphine 1G INJ) 1 gm BID IVPB 02/24/25 09:00 03/06/25 08:59 02/24/25 10:15 1 GM Morphine Sulfate (morPHINE 4MG SYG) 2 mg Q4H PRN IVP SEVERE PAIN (7-10) 02/24/25 06:00 03/03/25 05:59 02/24/25 12:42 2 MG Pantoprazole Sodium (PROTonix 40MG INJ) 40 mg DAILY IVP 02/24/25 09:00 03/26/25 08:59 02/24/25 10:14 40 MG Sodium Chloride 1,000 ml @ 100 mls/hr Q10H IV 02/24/25 05:30 03/26/25 05:29 02/24/25 06:06 100 MLS/HR Diagnostics / Radiology: [COPY/PASTE HERE IF NO REPORTS PLEASE DELETE SECTION] Assessment: [Abdominal pain Status post cholecystectomy Hepatic steatosis ] Plan: Case discussed with Dr. Ray [ No Gi endoscopic intervention at this time Pending MRCP results Possible need for ERCP. Pain meds as needed (avoid NSAIDS) Recommend patient continue with pantoprazole 40mg IV daily Please call with questions, concerns, and change in clinical status. Thank you for this consult] JER TOWNSEND NP Feb 24, 2025 14:19
[2025-02-24 16:07] LABS: HEPATITIS A IGM ANTIBODY Non-Reactive (Nonreactive); HEPATITIS B CORE IGM ANTIBODY Non-Reactive (Negative)
--- NOTE | 2025-02-24 16:51 | NUR ---
DCP: [facility] met with pt and her [place] [phone]. 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 PCP is Kam Perales and uses [facility] for medical care and meds. Pt denies need for SNF and will dc [place] Addendum: 02/24/25 at 1658 by MARTIN FALK Amended: Links added.
--- NOTE | 2025-02-24 17:44 | NUR ---
GI CONSULT AT BEDSIDE AT THIS TIME JER ROB
[2025-02-24 20:33] VITALS: BP 116/58; PULSE 112; RESP 22; TEMP 103.1
[2025-02-24 23:06] VITALS: TEMP 99
--- NOTE | 2025-02-25 01:37 | NUR ---
@2300pm 02/24/25 Report give to usha CHAPPELL.
[2025-02-25 03:05] VITALS: BP 105/59; PULSE 84; RESP 16; TEMP 98.4
--- NOTE | 2025-02-25 06:23 | PN ---
GASTROENTEROLOGY PROGRESS NOTE Date of Visit: Feb 25, 2025 Time of Visit: 06:22 Events / Notes: [MRCP negative for choledocholithiasis and no biliary ductal dilation. Patient's WBC of 4.0, hemoglobin 11.9, hematocrit 35.4, platelets 167. Chemistries significant for calcium of 8.4, total bilirubin has trended down to 0.6, direct bilirubin 0.2, AST has trended down to 50, ALT 98, alkaline phosphatase increased to 333. Albumin 3.2, total protein 6.9. Patient continues to complain of epigastric and ruq pain. She reports pain is now intermittent. Recommendations for EGD to further evaluate for any pathology given. She agreed to proceed. ] Review of Systems: CONSTITUTIONAL: No malaise or change in sensation of wellbeing. ENMT: No rhinorrhea, otorrhea, sinus pain, ear ache. CARDIOVASCULAR: No angina, palpitations, orthopnea or paroxysmal dyspnea. RESPIRATORY: No SOB. GASTROINTESTINAL: No abdominal pain, nausea, vomiting, diarrhea, hematemesis, melena or change in the patient's habitual bowel movements consistency/number. GENITOURINARY: No dysuria, hematuria or change in bladder continence. MUSCULOSKELETAL: No new muscle pain or decrease in muscular strength. No new joint swelling, redness or tenderness. SKIN: No new rash. Physical Exam: GEN: Awake, alert, oriented in person, time and place, and in no acute distress. HEENT: No rhinorrhea. Oral pharyngeal mucosa is pink, moist and within normal limits. CHEST: Lung auscultation revealed normal breath sounds bilaterally. CARDIAC:Heart sounds are regular. ABD: Soft, tender to upper abdomen and not distended. No peritoneal signs on palpation. Normal bowel sounds. Last bm 02/24/25 EXT: No cyanosis or clubbing. No edema. SKIN: Intact. No rashes. NEURO: Alert and oriented to name, place and person.No focal motor deficits. Normal speech. Vital Signs (last 8hr) Date Time Temp Pulse Resp B/P (MAP) Pulse Ox O2 Delivery O2 Flow Rate FiO2 02/25/25 03:10 Room Air* 0 21 02/25/25 03:05 98.4 84 16 105/59 98 Room Air 02/25/25 03:05 98.4 84 16 105/59 98 Room Air 02/25/25 00:33 98.4 91 18 101/46 95 Room Air* 0 21 02/24/25 23:37 84 18 95 Room Air* 0 21 02/24/25 23:06 99.0 Laboratory: [ ] Laboratory: Test 02/24/25 08:00 02/24/25 05:48 02/23/25 22:23 Range/Units Lipase 42 16-77 U/L White Blood Count 4.0 L 4.8-10.8 K/uL Red Blood Count 3.97 L 4.00-5.50 MIL/uL Hemoglobin 12.0 12.0-16.0 g/dL Hematocrit 35.7 L 36-48 % Mean Corpuscular Volume 89.9 79-99 fL Mean Corpuscular Hemoglobin 30.2 27.0-33.0 pg Mean Corpuscular Hemoglobin Concent 33.6 32.0-36.0 g/dL Red Cell Distribution Width 12.3 11.0-15.5 % Platelet Count 152 130-400 K/uL Mean Platelet Volume 10.4 7.5-10.5 fL Immature Granulocyte % (Auto) 0.3 0-1 % Neutrophils (%) (Auto) 67.4 40.0-77.0 % Lymphocytes (%) (Auto) 24.2 21.0-51.0 % Monocytes (%) (Auto) 7.6 3.0-13.0 % Eosinophils (%) (Auto) 0.0 0.0-8.0 % Basophils (%) (Auto) 0.5 0.0-5.0 % Neutrophils # (Auto) 2.7 1.8-7.7 K/uL Lymphocytes # (Auto) 1.0 1.0-4.8 K/uL Monocytes # (Auto) 0.3 0.1-1.0 K/uL Eosinophils # (Auto) 0.00 0.00-0.70 K/uL Basophils # (Auto) 0.02 0.00-0.20 K/uL Absolute Immature Granulocyte (auto 0.01 0-1 K/uL Segmented Neutrophils % 68 40-70 % Band Neutrophils % 2 0-2 % Lymphocytes % (Manual) 22 22-44 % Monocytes % (Manual) 5 2-9 % Nucleated Red Blood Cells 0.0 0.0-0.19 % Differential Comment MANUAL DIFFERENTIAL Reactive Lymphocytes 3 H 0-0 % White Cell Morphology Comment REACTIVE LYMPHS 1+ Platelet Morphology Comment ADEQUATE Red Blood Cell Morphology NORMAL Sodium Level 137 136-145 mmol/L Potassium Level 4.0 3.5-5.1 mmol/L Chloride Level 102 101-111 mmol/L Carbon Dioxide Level 24 21-32 mmol/L Blood Urea Nitrogen 12 7-18 mg/dL Creatinine 0.7 0.5-1.0 mg/dL Glomerular Filtration Rate Calc 108 >90 mL/min Random Glucose 72 70-105 mg/dL Lactic Acid Level 1.1 0.8-2.5 mmol/L Total Calcium 8.5 8.5-10.1 mg/dL Magnesium Level 2.00 1.80-2.40 mg/dL Total Bilirubin 1.1 H 0.2-1.0 mg/dL Direct Bilirubin 0.5 H 0.0-0.3 mg/dL Aspartate Amino Transf (AST/SGOT) 67 H 10-37 U/L Alanine Aminotransferase (ALT/SGPT) 127 H 12-78 U/L Alkaline Phosphatase 315 H 50-136 U/L Total Protein 7.0 6.0-8.3 g/dL Albumin 3.4 L 3.5-5.0 g/dL Procalcitonin 0.19 0.05-0.5 ng/mL Hepatitis A IgM Antibody Non-Reactive Nonreactive Hepatitis B Surface Antigen. Non-Reactive Nonreactive Hepatitis B Core IgM Antibody Non-Reactive Negative Hepatitis C Antibody Non-Reactive Nonreactive Urine Color YELLOW YELLOW Urine Appearance CLEAR CLEAR Urine pH 6.0 5.0-8.0 Urine Specific [place] 1.031 1.001-1.031 Urine Protein 10 H NEGATIVE mg/dL Urine Glucose (UA) NEGATIVE NEGATIVE mg/dL Urine Ketones 150 H NEGATIVE mg/dL Urine Occult Blood NEGATIVE NEGATIVE Urine Nitrate NEGATIVE NEGATIVE Urine Bilirubin NEGATIVE NEGATIVE mg/dL Urine Urobilinogen 2.0 H 0.2-1.0 mg/dL Urine Leukocyte Esterase 75 H NEGATIVE Liliana/uL Urine RBC 2-5 H 0-1 /HPF Urine WBC 2-5 H 0-1 /HPF Urine Squamous Epithelial Cells FEW 0-2 /HPF Urine Bacteria RARE None Seen /HPF Urine HCG, Qualitative NEGATIVE NEGATIVE Influenza Type A Antigen Negative For Type A NEGATIVE Influenza Type B Antigen Negative For Type B NEGATIVE SARS-CoV-2, RNA, NAAT NEGATIVE SARS CoV-2 NEGATIVE Group A Streptococcus Rapid negative NEGATIVE Current Medications Medications (Trade) Dose Ordered Sig/Dionicio Route PRN Reason Start Time Stop Time Status Last Admin Dose Admin Acetaminophen (TYLenol 325MG TAB) 650 mg Q4H PRN PO MILD PAIN (1-3) 02/24/25 16:00 03/26/25 15:59 Acetaminophen (TYLenol 650MG SUPPOSITORY) 650 mg Q6H PRN RC TEMPERATURE GREATER THAN 100.4 02/24/25 20:30 03/26/25 20:29 02/24/25 20:52 650 MG Ceftriaxone Sodium (ROCEphine 1G INJ) 1 gm BID IVPB 02/24/25 09:00 03/06/25 08:59 02/24/25 20:45 1 GM Metronidazole/ Sodium Chloride (flaGYL) 500 mg Q8H IV 02/24/25 16:00 03/06/25 15:59 02/24/25 23:57 500 MG Morphine Sulfate (morPHINE 4MG SYG) 2 mg Q4H PRN IVP SEVERE PAIN (7-10) 02/24/25 06:00 03/03/25 05:59 02/24/25 12:42 2 MG Ondansetron HCl (zoFRAN 4MG INJ) 4 mg Q6H PRN IV NAUSEA/VOMITING 02/24/25 16:00 03/26/25 15:59 Pantoprazole Sodium (PROTonix 40MG INJ) 40 mg DAILY IVP 02/24/25 09:00 03/26/25 08:59 02/24/25 10:14 40 MG Sodium Chloride 1,000 ml @ 100 mls/hr Q10H IV 02/24/25 05:30 03/26/25 05:29 02/24/25 15:35 100 MLS/HR Diagnostics / Radiology: [COPY/PASTE HERE IF NO REPORTS PLEASE DELETE SECTION] Assessment: [Abdominal pain Status post cholecystectomy Hepatic steatosis ] Plan: Case discussed with Dr. Ray MRCP negative for choledocholithiasis Clear fluids this pm NPO after midnight Plan for EGD in am Pain meds as needed (avoid NSAIDS) Recommend patient continue with pantoprazole 40mg IV daily Please call with questions, concerns, and change in clinical status. Thank you for this consult] JER T[place]END [employer]ARN Feb 25, 2025 06:23
[2025-02-25 06:54] LABS: IMMATURE GRANULOCYTE ABSOLUTE 0.02 K/uL (0-1); NUCLEATED RED BLOOD CELLS 0.0 % (0.0-0.19); PLATELET COUNT (AUTO) 167 K/uL (130-400); RED BLOOD CELL COUNT(AUTO) 4.03 MIL/uL (4.00-5.50); RED CELL DISTRIBUTION WIDTH 12.4 % (11.0-15.5); WHITE BLOOD COUNT (AUTO) 4.0 K/uL (4.8-10.8)
[2025-02-25 07:11] LABS: ASPARTATE AMINOTRANSFERASE 50.0 U/L (10-37); CREATININE 0.6 mg/dL (0.5-1.0); GLOMERULAR FILTR. RATE CALC 112.0 mL/min (>90); GLUCOSE,RANDOM 77.0 mg/dL (70-105); SODIUM SERUM 136.0 mmol/L (136-145); TOTAL PROTEIN, SERUM 6.9 g/dL (6.0-8.3); UREA NITROGEN, BLOOD 14.0 mg/dL (7-18)
--- NOTE | 2025-02-25 11:06 | HMCIMG ---
EXAMINATION: MRCP WITHOUT CONTRAST. CLINICAL HISTORY: Abdominal pain. COMPARISON: Prior CT abdomen and pelvis on 02/24/2025 TECHNIQUE : Multiplanar, multisequence MR images of the abdomen were obtained. MRCP images were created on an independent workstation, and made available in electronic format. FINDINGS: The liver, spleen, kidneys and bilateral adrenal glands appear grossly unremarkable. The visualized portions of the bowel are normal in appearance. There are no areas of increased signal intensity. The gallbladder is surgically absent. The common hepatic duct measures 0.35 cm. The common bile duct measures 0.25 cm is normal in caliber throughout its course without stricturing. There are no ductal stones. The pancreas is normal in bulk and signal intensities. No abnormally enhancing foci within. No peripancreatic fluid collections. The visualized portions of the thoracic and lumbar spine are normal. IMPRESSION: Status post cholecystectomy. No biliary duct dilatation. No evidence of choledocholithiasis. /[place]
--- NOTE | 2025-02-25 13:45 | NUR ---
DC Tele monitoring Received order from Dr Anguiano to discontinue tele monitoring. See orders.
--- NOTE | 2025-02-25 14:18 | PN ---
[facility] PROGRESS NOTE Date of Service: Feb 25, 2025 Time of Service: 13:59 SUBJECTIVE: This is a case of a 44-year-old female with no pertinent past medical history who recently underwent laparoscopic cholecystectomy at [facility] on January 26 2025, who presented to the ED with 3 day history of intermittent fever, chills, intermittent squeezing type, severe right-sided abdominal pain radiating to the rectum. Initial vitals temperature 102.6 F, pulse rate 104, respiratory rate 20, blood pressure 126/82 meeting the SIRS criteria. Initial labs WBC 3.5, hemoglobin 12, total bilirubin 1.2, AST 80, ALT 150, alkaline phosphatase 316. Urinalysis positive for leukocyte esterase, ketones, RBC and WBC. Influenza type a and B, SARS COVID, group a strep test results are negative. CT abdomen and pelvis with contrast result revealed uterine fibroid of 1.3cm, mild fatty liver, mild cystitis, CBD 4mm and a component of mild constipation is present in the colon. Abdominal ultrasound revealed no acute process, fatty liver and post cholecystectomy changes. GI was consulted. She is admitted for further workup and treatment. 02/24/2025: Patient is seen and examined at the bedside today. Vitals temperature 98.6, blood pressure 112/65, respiratory rate 20, pulse rate 82, SpO2 greater than 95% on room air. No acute events last night. She complains of right upper quadrant a nd epigastric abdominal pain, nausea. She denies headache, chest pain, palpitations, difficulty in breathing, diarrhea. Labs WBC 4, hemoglobin 12, total bilirubin 1.1, direct bilirubin 0.5, AST improved from 80-67, ALT improved from 150-127, alkaline phosphatase 315. 02/25/2025: Patient is seen and examined at the bedside today in ED-04, her was present in the room. Patient reports feeling better today and her pain as gotten better today. Patient complains of fever every 4 hours. She denies headache, chest pain, palpitations, difficulty in breathing, diarrhea. Labs WBC 4, hemoglobin 11.9, total bilirubin 1.1, direct bilirubin 0.5, AST improved from 67>50, ALT improved from 127>98, alkaline phosphatase 315>333. She underwent MRC P which showed No biliary duct dilatation. No evidence of choledocholithiasis. REVIEW OF SYSTEMS CONSTITUTIONAL: Complaints of fever every 4 hours, denies night sweats. No unintentional weight loss reported. NEUROLOGICAL: Denies headache, motor weakness, sensory deficit, vertigo/spinning sensation, gait abnormalities, or tremors. ENT: No hearing loss, otalgia, otorrhea, rhinitis, rhinorrhea, hoarseness, or sore throat. CARDIOVASCULAR: Denies any exertional angina, dyspnea on exertion, orthopnea, paroxysmal nocturnal dyspnea, palpitations, life-threatening arrhythmias, claudication. PULMONARY: Denies any shortness of breath, cough, phlegm/sputum, hemoptysis, pleuritic chest pain. SLEEP: Denies morning headaches, daytime somnolence or napping GASTROINTESTINAL: Right upper quadrant and epigastric abdominal pain GENITOURINARY: Denies frequency, urgency, nocturia, hematuria or incontinence HEMATOLOGIC: Denies thrombophilia/previous clots, or coagulopathy/bleeding disorders. ONCOLOGIC: Denies personal history of malignancy. DERMATOLOGIC: Denies rashes or pruritus. PSYCHIATRIC: Denies any suicidal or homicidal ideation. Denies hallucinations. PHYSICAL EXAM GENERAL APPEARANCE: The patient is awake, alert, and oriented, in no acute cardiopulmonary distress. NEUROLOGICAL: Cranial nerves II-XII grossly intact. Motor is 5/5 in bilateral upper and lower extremities proximal to distal. No sensory deficits. HEENT: Face is symmetric. Pupils are equal and reactive. Extraocular movements are intact. NECK: Supple. No JVD CHEST: Normal chest expansion. No Telemetry. LUNGS: Absence of any rales, rhonchi or any wheezing. CARDIOVASCULAR: Regular. S1 and S2 normal. No appreciable rubs, murmurs or gallops. ABDOMEN: abdominal tenderness on palpation more prominent in the RUQ, epigas tric region Soft and nondistended. There is no rebound, voluntary guarding, or rigidity. : Deferred. No [place]. EXTREMITIES: Non-edematous and not cyanotic. No clubbing. Good capillary refill. SKIN: No skin breakdown. Vital Signs (last 8hr) Date Time Temp Pulse Resp B/P (MAP) Pulse Ox O2 Delivery O2 Flow Rate FiO2 02/25/25 11:19 99.9 84 18 104/63 97 Room Air* 0 21 02/25/25 07:52 102.0 110 18 119/60 97 Room Air* 0 21 02/25/25 06:19 100.8 LABS: Laboratory: Test 02/25/25 06:28 02/24/25 08:00 02/24/25 05:48 02/23/25 22:23 Range/Units White Blood Count 4.0 L 4.8-10.8 K/uL Red Blood Count 4.03 4.00-5.50 MIL/uL Hemoglobin 11.9 L 12.0-16.0 g/dL Hematocrit 35.4 L 36-48 % Mean Corpuscular Volume 87.8 79-99 fL Mean Corpuscular Hemoglobin 29.5 27.0-33.0 pg Mean Corpuscular Hemoglobin Concent 33.6 32.0-36.0 g/dL Red Cell Distribution Width 12.4 11.0-15.5 % Platelet Count 167 130-400 K/uL Mean Platelet Volume 10.3 7.5-10.5 fL Immature Granulocyte % (Auto) 0.5 0-1 % Neutrophils (%) (Auto) 64.3 40.0-77.0 % Lymphocytes (%) (Auto) 24.3 21.0-51.0 % Monocytes (%) (Auto) 10.4 3.0-13.0 % Eosinophils (%) (Auto) 0.0 0.0-8.0 % Basophils (%) (Auto) 0.5 0.0-5.0 % Neutrophils # (Auto) 2.6 1.8-7.7 K/uL Lymphocytes # (Auto) 1.0 1.0-4.8 K/uL Monocytes # (Auto) 0.4 0.1-1.0 K/uL Eosinophils # (Auto) 0.00 0.00-0.70 K/uL Basophils # (Auto) 0.02 0.00-0.20 K/uL Absolute Immature Granulocyte (auto 0.02 0-1 K/uL Nucleated Red Blood Cells 0.0 0.0-0.19 % Sodium Level 136 136-145 mmol/L Potassium Level 3.8 3.5-5.1 mmol/L Chloride Level 102 101-111 mmol/L Carbon Dioxide Level 20 L 21-32 mmol/L Blood Urea Nitrogen 14 7-18 mg/dL Creatinine 0.6 0.5-1.0 mg/dL Glomerular Filtration Rate Calc 112 >90 mL/min Random Glucose 77 70-105 mg/dL Total Calcium 8.4 L 8.5-10.1 mg/dL Magnesium Level 2.00 1.80-2.40 mg/dL Total Bilirubin 0.6 0.2-1.0 mg/dL Direct Bilirubin 0.2 0.0-0.3 mg/dL Aspartate Amino Transf (AST/SGOT) 50 H 10-37 U/L Alanine Aminotransferase (ALT/SGPT) 98 H 12-78 U/L Alkaline Phosphatase 333 H 50-136 U/L Total Protein 6.9 6.0-8.3 g/dL Albumin 3.2 L 3.5-5.0 g/dL Lipase 42 16-77 U/L Segmented Neutrophils % 68 40-70 % Band Neutrophils % 2 0-2 % Lymphocytes % (Manual) 22 22-44 % Monocytes % (Manual) 5 2-9 % Differential Comment MANUAL DIFFERENTIAL Reactive Lymphocytes 3 H 0-0 % White Cell Morphology Comment REACTIVE LYMPHS 1+ Platelet Morphology Comment ADEQUATE Red Blood Cell Morphology NORMAL Lactic Acid Level 1.1 0.8-2.5 mmol/L Procalcitonin 0.19 0.05-0.5 ng/mL Hepatitis A IgM Antibody Non-Reactive Nonreactive Hepatitis B Surface Antigen. Non-Reactive Nonreactive Hepatitis B Core IgM Antibody Non-Reactive Negative Hepatitis C Antibody Non-Reactive Nonreactive Urine Color YELLOW YELLOW Urine Appearance CLEAR CLEAR Urine pH 6.0 5.0-8.0 Urine Specific [place] 1.031 1.001-1.031 Urine Protein 10 H NEGATIVE mg/dL Urine Glucose (UA) NEGATIVE NEGATIVE mg/dL Urine Ketones 150 H NEGATIVE mg/dL Urine Occult Blood NEGATIVE NEGATIVE Urine Nitrate NEGATIVE NEGATIVE Urine Bilirubin NEGATIVE NEGATIVE mg/dL Urine Urobilinogen 2.0 H 0.2-1.0 mg/dL Urine Leukocyte Esterase 75 H NEGATIVE Liliana/uL Urine RBC 2-5 H 0-1 /HPF Urine WBC 2-5 H 0-1 /HPF Urine Squamous Epithelial Cells FEW 0-2 /HPF Urine Bacteria RARE None Seen /HPF Urine HCG, Qualitative NEGATIVE NEGATIVE Influenza Type A Antigen Negative For Type A NEGATIVE Influenza Type B Antigen Negative For Type B NEGATIVE SARS-CoV-2, RNA, NAAT NEGATIVE SARS CoV-2 NEGATIVE Group A Streptococcus Rapid negative NEGATIVE Current Medications Medications (Trade) Dose Ordered Sig/Dionicio Route PRN Reason Start Time Stop Time Status Last Admin Dose Admin Acetaminophen (TYLenol 325MG TAB) 650 mg Q4H PRN PO MILD PAIN (1-3) 02/24/25 16:00 03/26/25 15:59 Acetaminophen (TYLenol 650MG SUPPOSITORY) 650 mg Q6H PRN RC TEMPERATURE GREATER THAN 100.4 02/24/25 20:30 03/26/25 20:29 02/25/25 06:19 650 MG Ceftriaxone Sodium (ROCEphine 1G INJ) 1 gm BID IVPB 02/24/25 09:00 03/06/25 08:59 02/25/25 09:57 1 GM Metronidazole/ Sodium Chloride (flaGYL) 500 mg Q8H IV 02/24/25 16:00 03/06/25 15:59 02/25/25 08:14 500 MG Morphine Sulfate (morPHINE 4MG SYG) 2 mg Q4H PRN IVP SEVERE PAIN (7-10) 02/24/25 06:00 03/03/25 05:59 02/24/25 12:42 2 MG Ondansetron HCl (zoFRAN 4MG INJ) 4 mg Q6H PRN IV NAUSEA/VOMITING 02/24/25 16:00 03/26/25 15:59 Pantoprazole Sodium (PROTonix 40MG INJ) 40 mg DAILY IVP 02/24/25 09:00 03/26/25 08:59 02/25/25 09:57 40 MG Sodium Chloride 1,000 ml @ 100 mls/hr Q10H IV 02/24/25 05:30 03/26/25 05:29 02/25/25 09:57 100 MLS/HR DIAGNOSTICS / RADIOLOGY: MRCP PATIENT: BALJIT LISA MR#: [id number] : 1980 SEX: F AGE: 44 LOCATION: [facility] ORDER 9 STATUS: ADM IN REPORT#: [id number] SERVICE 7 REASON: abdominal pain sa/p lap kyle ORDERING PHYSICIAN: MEERA MCFARLANE PROCEDURE: MRCP WO - MRCP(ABDWO)CHOLANGIOPANCREATOG EXAMINATION: MRCP WITHOUT CONTRAST. CLINICAL HISTORY: Abdominal pain. COMPARISON: Prior CT abdomen and pelvis on 02/24/2025 TECHNIQUE : Multiplanar, multisequence MR images of the abdomen were obtained. MRCP images were created on an independent workstation, and made available in electronic format. FINDINGS: The liver, spleen, kidneys and bilateral adrenal glands appear grossly unremarkable. The visualized portions of the bowel are normal in appearance. There are no areas of increased signal intensity. The gallbladder is surgically absent. The common hepatic duct measures 0.35 cm. The common bile duct measures 0.25 cm is normal in caliber throughout its course without stricturing. There are no ductal stones. The pancreas is normal in bulk and signal intensities. No abnormally enhancing foci within. No peripancreatic fluid collections. The visualized portions of the thoracic and lumbar spine are normal. IMPRESSION: Status post cholecystectomy. No biliary duct dilatation. No evidence of choledocholithiasis. /[place] DICTATED BY: JAQUAN CORNELL MD DATE: 02/25/251204 ELECTRONICALLY SIGNED BY: JAQUAN CORNELL MD DATE: 02/25/251204 ASSESSMENT: Sepsis secondary to possible cholangitis, POA Elevated liver enzymes, POA Recent status post lap cholecystectomy POA Obesity POA Acute cystitis POA Hyponatremia POA, resolved Hypochloremia POA, resolved Uterine fibroid per CT POA Mild fatty liver per CT POA PLAN: NPO Admit the patient to Med/Surg Sepsis secondary to possible cholangitis, POA Initial vitals temperature 99.9 F, pulse rate 104, respiratory rate 20, blood pressure 126/82 and WBC 3.5 with suspected cholangitis [fever+RUQ pain+elevated liver enzymes] suggest sepsis. WBC count today- 4.0, Vitals today Temp- 99.9, Pulse-84, RR-18, Blood pressure- 104/63, Pulse-97 Continue IV fluids @ 100ml/hr We will add the antibiotic Metronidazole to Rocephin for broad spectrum coverage We will order blood culture tests. Continue prn meds for pain, fever, nausea, vomiting GI was consulted and we will follow their recommendations MRCP was ordered. Results showed No biliary duct dilatation. No evidence of choledocholithiasis. Elevated liver enzymes, POA, improving AST improved from 67>50, ALT improved from 127>98, alkaline phosphatase 333 Repeat LFTs tomorrow Acute cystitis POA Urine culture positive for leukocyte esterase indicating infection Continue IV antibiotics Continue Protonix 40 mg IV daily for GI prophylaxis Continue SCDs for DVT prophylaxis Monitor electrolytes and replace them according to the protocol ATTESTATION BY PHYSICIAN I have seen and examined the patient. I reviewed the documentation, medical decision making, and treatment plan as noted by the resident provider above. I agree with the findings and plan of care. Mark Anguiano MD, SHAJI MD Feb 25, 2025 14:18
--- NOTE | 2025-02-25 15:49 | HMCIMG ---
CHEST 1VW REASON: Fever of unknown origin COMPARISON: None. FINDINGS: Single view of the chest was obtained. Lungs are clear. Heart size is normal. There is no pulmonary vascular congestion. Mediastinum and bony thorax appear unremarkable. IMPRESSION: 1. Normal single view chest x-ray.
--- NOTE | 2025-02-25 17:20 | NUR ---
FIRST ATTEMPT AT CALLING REPORT
--- NOTE | 2025-02-25 17:28 | NUR ---
2ND ATTEMPT AT CALLING REPORT
[2025-02-25 18:55] VITALS: BP 116/65; PULSE 106; RESP 19; TEMP 98.9
--- NOTE | 2025-02-25 18:55 | NUR ---
arrived to unit from ER patient alert and oriented, family at bedside, denies pain/nausea at this time, vitals stable on room air
[2025-02-25 20:00] VITALS: BP 98/64; PULSE 85; RESP 18; TEMP 98.9
[2025-02-25 20:18] VITALS: O2SAT 97
[2025-02-26] VITALS (24 sets, daily range): BP systolic 104–121; BP diastolic 52–76; PULSE 81–107; RESP 16–20; TEMP 97.5–101.7; O2SAT 96
[2025-02-26 05:23] LABS: IMMATURE GRANULOCYTE ABSOLUTE 0.01 K/uL (0-1); NUCLEATED RED BLOOD CELLS 0.0 % (0.0-0.19); PLATELET COUNT (AUTO) 151 K/uL (130-400); RED BLOOD CELL COUNT(AUTO) 3.78 MIL/uL (4.00-5.50); RED CELL DISTRIBUTION WIDTH 12.5 % (11.0-15.5); WHITE BLOOD COUNT (AUTO) 3.9 K/uL (4.8-10.8)
[2025-02-26 05:45] LABS: ASPARTATE AMINOTRANSFERASE 74.0 U/L (10-37); CREATININE 0.6 mg/dL (0.5-1.0); GLOMERULAR FILTR. RATE CALC 112.0 mL/min (>90); GLUCOSE,RANDOM 86.0 mg/dL (70-105); SODIUM SERUM 136.0 mmol/L (136-145); TOTAL PROTEIN, SERUM 6.5 g/dL (6.0-8.3); UREA NITROGEN, BLOOD 10.0 mg/dL (7-18)
--- NOTE | 2025-02-26 11:45 | PN ---
[facility] PROGRESS NOTE Date of Service: Feb 26, 2025 Time of Service: 11:34 SUBJECTIVE: This is a case of a 44-year-old female with no pertinent past medical history who recently underwent laparoscopic cholecystectomy at [facility] on January 26 2025, who presented to the ED with 3 day history of intermittent fever, chills, intermittent squeezing type, severe right-sided abdominal pain radiating to the rectum. Initial vitals temperature 102.6 F, pulse rate 104, respiratory rate 20, blood pressure 126/82 meeting the SIRS criteria. Initial labs WBC 3.5, hemoglobin 12, total bilirubin 1.2, AST 80, ALT 150, alkaline phosphatase 316. Urinalysis positive for leukocyte esterase, ketones, RBC and WBC. Influenza type a and B, SARS COVID, group a strep test results are negative. CT abdomen and pelvis with contrast result revealed uterine fibroid of 1.3cm, mild fatty liver, mild cystitis, CBD 4mm and a component of mild constipation is present in the colon. Abdominal ultrasound revealed no acute process, fatty liver and post cholecystectomy changes. GI was consulted. She is admitted for further workup and treatment. 02/24/2025: Patient is seen and examined at the bedside today. Vitals temperature 98.6, blood pressure 112/65, respiratory rate 20, pulse rate 82, SpO2 greater than 95% on room air. No acute events last night. She complains of right upper quadrant a nd epigastric abdominal pain, nausea. She denies headache, chest pain, palpitations, difficulty in breathing, diarrhea. Labs WBC 4, hemoglobin 12, total bilirubin 1.1, direct bilirubin 0.5, AST improved from 80-67, ALT improved from 150-127, alkaline phosphatase 315. 02/25/2025: Patient is seen and examined at the bedside today in ED-04, her was present in the room. Patient reports feeling better today and her pain as gotten better today. Patient complains of fever every 4 hours. She denies headache, chest pain, palpitations, difficulty in breathing, diarrhea. Labs WBC 4, hemoglobin 11.9, total bilirubin 1.1, direct bilirubin 0.5, AST improved from 67>50, ALT improved from 127>98, alkaline phosphatase 315>333. She underwent MRC P which showed No biliary duct dilatation. No evidence of choledocholithiasis. 02/26/2025: Patient is seen and examined at bedside today in room 313, her was present in the room. Patient still complains of persistent fever. Patient reports her pain has subsided. She denies headache, chest pain, palpitations, difficulty in breathing, diarrhea. Patient had concerns regarding her source of infection for the fevers. Her MRCP results was unremarkable, but cultures, urine cultures were negative. Patient is scheduled for EGD today. Labs WBC 3.9, hemoglobin 11.4, total bilirubin 0.5, direct bilirubin 0.2, AST 50>74, ALT 98>98, alkaline phosphatase 333>300. REVIEW OF SYSTEMS CONSTITUTIONAL: Complaints of fever every 4 hours, denies night sweats. No unintentional weight loss reported. NEUROLOGICAL: Denies headache, motor weakness, sensory deficit, vertigo/spinning sensation, gait abnormalities, or tremors. ENT: No hearing loss, otalgia, otorrhea, rhinitis, rhinorrhea, hoarseness, or sore throat. CARDIOVASCULAR: Denies any exertional angina, dyspnea on exertion, orthopnea, paroxysmal nocturnal dyspnea, palpitations, life-threatening arrhythmias, claudication. PULMONARY: Denies any shortness of breath, cough, phlegm/sputum, hemoptysis, pleuritic chest pain. SLEEP: Denies morning headaches, daytime somnolence or napping GASTROINTESTINAL: Right upper quadrant and epigastric abdominal pain GENITOURINARY: Denies frequency, urgency, nocturia, hematuria or incontinence HEMATOLOGIC: Denies thrombophilia/previous clots, or coagulopathy/bleeding disorders. ONCOLOGIC: Denies personal history of malignancy. DERMATOLOGIC: Denies rashes or pruritus. PSYCHIATRIC: Denies any suicidal or homicidal ideation. Denies hallucinations. PHYSICAL EXAM GENERAL APPEARANCE: The patient is awake, alert, and oriented, in no acute cardiopulmonary distress. NEUROLOGICAL: Cranial nerves II-XII grossly intact. Motor is 5/5 in bilateral upper and lower extremities proximal to distal. No sensory deficits. HEENT: Face is symmetric. Pupils are equal and reactive. Extraocular movements are intact. NECK: Supple. No JVD CHEST: Normal chest expansion. No Telemetry. LUNGS: Absence of any rales, rhonchi or any wheezing. CARDIOVASCULAR: Regular. S1 and S2 normal. No appreciable rubs, murmurs or gallops. ABDOMEN: abdominal tenderness on palpation more prominent in the RUQ, epigastric region Soft and nondistended. There is no rebound, voluntary guarding, or rigidity. : Deferred. No [place]. EXTREMITIES: Non-edematous and not cyanotic. No clubbing. Good capillary refill. SKIN: No skin breakdown. Vital Signs (last 8hr) Date Time Temp Pulse Resp B/P (MAP) Pulse Ox O2 Delivery O2 Flow Rate FiO2 02/26/25 11:04 101.7 02/26/25 10:53 Room Air* 0 21 02/26/25 07:55 99.5 87 19 111/63 98 Room Air 21 02/26/25 04:07 101.7 02/26/25 04:00 101.7 96 20 120/59 99 Room Air 02/26/25 04:00 101.7 96 20 120/59 99 Room Air LABS: Laboratory: Test 02/26/25 04:55 02/25/25 06:28 Range/Units White Blood Count 3.9 L 4.8-10.8 K/uL Red Blood Count 3.78 L 4.00-5.50 MIL/uL Hemoglobin 11.4 L 12.0-16.0 g/dL Hematocrit 33.1 L 36-48 % Mean Corpuscular Volume 87.6 79-99 fL Mean Corpuscular Hemoglobin 30.2 27.0-33.0 pg Mean Corpuscular Hemoglobin Concent 34.4 32.0-36.0 g/dL Red Cell Distribution Width 12.5 11.0-15.5 % Platelet Count 151 130-400 K/uL Mean Platelet Volume 10.1 7.5-10.5 fL Immature Granulocyte % (Auto) 0.3 0-1 % Neutrophils (%) (Auto) 68.4 40.0-77.0 % Lymphocytes (%) (Auto) 19.6 L 21.0-51.0 % Monocytes (%) (Auto) 11.2 3.0-13.0 % Eosinophils (%) (Auto) 0.0 0.0-8.0 % Basophils (%) (Auto) 0.5 0.0-5.0 % Neutrophils # (Auto) 2.7 1.8-7.7 K/uL Lymphocytes # (Auto) 0.8 L 1.0-4.8 K/uL Monocytes # (Auto) 0.4 0.1-1.0 K/uL Eosinophils # (Auto) 0.00 0.00-0.70 K/uL Basophils # (Auto) 0.02 0.00-0.20 K/uL Absolute Immature Granulocyte (auto 0.01 0-1 K/uL Nucleated Red Blood Cells 0.0 0.0-0.19 % Sodium Level 136 136-145 mmol/L Potassium Level 3.6 3.5-5.1 mmol/L Chloride Level 103 101-111 mmol/L Carbon Dioxide Level 21 21-32 mmol/L Blood Urea Nitrogen 10 7-18 mg/dL Creatinine 0.6 0.5-1.0 mg/dL Glomerular Filtration Rate Calc 112 >90 mL/min Random Glucose 86 70-105 mg/dL Total Calcium 8.1 L 8.5-10.1 mg/dL Total Bilirubin 0.5 0.2-1.0 mg/dL Direct Bilirubin 0.2 0.0-0.3 mg/dL Aspartate Amino Transf (AST/SGOT) 74 H 10-37 U/L Alanine Aminotransferase (ALT/SGPT) 98 H 12-78 U/L Alkaline Phosphatase 300 H 50-136 U/L Total Protein 6.5 6.0-8.3 g/dL Albumin 2.9 L 3.5-5.0 g/dL Magnesium Level 2.00 1.80-2.40 mg/dL Current Medications Medications (Trade) Dose Ordered Sig/Dionicio Route PRN Reason Start Time Stop Time Status Last Admin Dose Admin Acetaminophen (TYLenol 325MG TAB) 650 mg Q4H PRN PO MILD PAIN (1-3) 02/24/25 16:00 03/26/25 15:59 02/25/25 23:29 650 MG Acetaminophen (TYLenol 650MG SUPPOSITORY) 650 mg Q6H PRN RC TEMPERATURE GREATER THAN 100.4 02/24/25 20:30 03/26/25 20:29 02/26/25 11:04 650 MG Ceftriaxone Sodium (ROCEphine 1G INJ) 1 gm BID IVPB 02/24/25 09:00 03/06/25 08:59 02/26/25 08:11 1 GM Metronidazole/ Sodium Chloride (flaGYL) 500 mg Q8H IV 02/24/25 16:00 03/06/25 15:59 02/26/25 08:12 500 MG Morphine Sulfate (morPHINE 4MG SYG) 2 mg Q4H PRN IVP SEVERE PAIN (7-10) 02/24/25 06:00 03/03/25 05:59 02/24/25 12:42 2 MG Ondansetron HCl (zoFRAN 4MG INJ) 4 mg Q6H PRN IV NAUSEA/VOMITING 02/24/25 16:00 03/26/25 15:59 Pantoprazole Sodium (PROTonix 40MG INJ) 40 mg DAILY IVP 02/24/25 09:00 03/26/25 08:59 02/26/25 08:11 40 MG Sodium Chloride 1,000 ml @ 100 mls/hr Q10H IV 02/24/25 05:30 03/26/25 05:29 02/26/25 08:11 100 MLS/HR DIAGNOSTICS / RADIOLOGY: CHEST X-RAY PATIENT: BALJIT LISA MR#: [id number] : 1980 SEX: F AGE: 44 LOCATION: [facility] ORDER 16 STATUS: ADM IN REPORT#: [id number] SERVICE 14 REASON: Fever of unknown origin ORDERING PHYSICIAN: TAMAR WELLS MD PROCEDURE: CXR1VW - CHEST 1VW CHEST 1VW REASON: Fever of unknown origin COMPARISON: None. FINDINGS: Single view of the chest was obtained. Lungs are clear. Heart size is normal. There is no pulmonary vascular congestion. Mediastinum and bony thorax appear unremarkable. IMPRESSION: 1. Normal single view chest x-ray. 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 CLINICAL HISTORY: Abdominal pain. COMPARISON: Prior CT abdomen and pelvis on 02/24/2025 TECHNIQUE : Multiplanar, multisequence MR images of the abdomen were obtained. MRCP images were created on an independent workstation, and made available in electronic format. FINDINGS: The liver, spleen, kidneys and bilateral adrenal glands appear grossly unremarkable. The visualized portions of the bowel are normal in appearance. There are no areas of increased signal intensity. The gallbladder is surgically absent. The common hepatic duct measures 0.35 cm. The common bile duct measures 0.25 cm is normal in caliber throughout its course without stricturing. There are no ductal stones. The pancreas is normal in bulk and signal intensities. No abnormally enhancing foci within. No peripancreatic fluid collections. The visualized portions of the thoracic and lumbar spine are normal. IMPRESSION: Status post cholecystectomy. No biliary duct dilatation. No evidence of choledocholithiasis. /[place] DICTATED BY: JAQUAN CORNELL MD DATE: 02/25/251204 ELECTRONICALLY SIGNED BY: JAQUAN CORNELL MD DATE: 02/25/251204 ASSESSMENT: Sepsis secondary to possible cholangitis, POA Elevated liver enzymes, POA Recent status post lap cholecystectomy POA Obesity POA Acute cystitis POA Hyponatremia POA, resolved Hypochloremia POA, resolved Uterine fibroid per CT POA Mild fatty liver per CT POA PLAN: NPO Admit the patient to Med/Surg Sepsis secondary to possible cholangitis, POA Initial vitals temperature 99.9 F, pulse rate 104, respiratory rate 20, blood pressure 126/82 and WBC 3.5 with suspected cholangitis [fever+RUQ pain+elevated liver enzymes] suggest sepsis. WBC count today- 4.0, Vitals today Temp- 99.9, Pulse-84, RR-18, Blood pressure- 104/63, Pulse-97 Continue IV fluids @ 100ml/hr Metronidazole, Rocephin were discontinued today. We will order blood culture tests. Continue prn meds for pain, fever, nausea, vomiting GI was consulted and we will follow their recommendations. Patient is scheduled for EGD today. Infectious diseases was consulted today concerning her persistent fever with unknown source. Patient started on Zosyn (day1) and Doxycycline 100mg, as per ID recommendations. Typhus serology was requested as per ID recommendations. MRCP was ordered. Results showed No biliary duct dilatation. No evidence of choledocholithiasis. Chest X-ray was unremarkable. Elevated liver enzymes, POA, improving AST 50>74, ALT 98>98, alkaline phosphatase 333>300. Total bilirubin 0.5, direct bilirubin 0.2 Will Repeat LFTs tomorrow Acute cystitis POA Urine culture positive for leukocyte esterase indicating infection Will Continue IV antibiotics Continue Protonix 40 mg IV daily for GI prophylaxis Continue SCDs for DVT prophylaxis Monitor electrolytes and replace them according to the protocol ATTESTATION BY PHYSICIAN I have seen and examined the patient. I reviewed the documentation, medical decision making, and treatment plan as noted by the resident provider above. I agree with the findings and plan of care. Mark Anguiano MD, SHAJI MD Feb 26, 2025 11:45
[2025-02-26] MEDS ORDERED: MIDAZOLAM HCL 1 MG/ML 2ML VIAL ONE (12:49)
[2025-02-26] MEDS ORDERED: LIDOCAINE PF 100MG/5ML (2%) SYRINGE 5ML ONE (12:49)
[2025-02-26] MEDS: DOXYCYCLINE 100MG+NS 250ML 250 ML IV SCH (14:07)
[2025-02-26] MEDS: ZOSYN 3.375GM +NS 50ML IV SCH (16:16)
--- NOTE | 2025-02-26 17:18 | PN ---
GASTROENTEROLOGY PROGRESS NOTE Date of Visit: Feb 26, 2025 Time of Visit: 17:14 Events / Notes: [MRCP negative for choledocholithiasis and no biliary ductal dilation. Patient's WBC of 4.0, hemoglobin 11.9, hematocrit 35.4, platelets 167. Chemistries significant for calcium of 8.4, total bilirubin has trended down to 0.6, direct bilirubin 0.2, AST has trended down to 50, ALT 98, alkaline phosphatase increased to 333. Albumin 3.2, total protein 6.9. Patient continues to complain of epigastric and ruq pain. She reports pain is now intermittent. Recommendations for EGD to further evaluate for any pathology given. She agreed to proceed. 02/26/25: Found to have gastritis on EGD today is recommended to take pantoprazole 40 mg p.o. b.i.d.. Results given to patient. She reports feeling slightly better but is now having fever. Recommended patient to follow up at [facility] in one week for path results. Emphasized importance she avoid spicy, greasy foods, foods with tomatoes, caffeinated and carbonated beverages. Patient verbalized understanding and agreement. ] Review of Systems: CONSTITUTIONAL: No malaise or change in sensation of wellbeing. ENMT: No rhinorrhea, otorrhea, sinus pain, ear ache. CARDIOVASCULAR: No angina, palpitations, orthopnea or paroxysmal dyspnea. RESPIRATORY: No SOB. GASTROINTESTINAL: No abdominal pain, nausea, vomiting, diarrhea, hematemesis, melena or change in the patient's habitual bowel movements consistency/number. GENITOURINARY: No dysuria, hematuria or change in bladder continence. MUSCULOSKELETAL: No new muscle pain or decrease in muscular strength. No new joint swelling, redness or tenderness. SKIN: No new rash. Physical Exam: GEN: Awake, alert, oriented in person, time and place, and in no acute distress. HEENT: No rhinorrhea. Oral mucosa is moist and within normal limits. CHEST: Lung auscultation revealed normal breath sounds bilaterally. CARDIAC:Heart sounds are regular. ABD: Soft, tender to upper abdomen and not distended. No peritoneal signs on palpation. Normal bowel sounds. EXT: No cyanosis or clubbing. No edema. SKIN: Intact. No rashes. NEURO: Alert and oriented to name, place and person.No focal motor deficits. Normal speech. Vital Signs (last 8hr) Date Time Temp Pulse Resp B/P (MAP) Pulse Ox O2 Delivery O2 Flow Rate FiO2 02/26/25 14:30 83 107/67 99 Room Air 21 02/26/25 14:15 81 111/71 100 Room Air 21 02/26/25 14:00 88 111/68 97 Room Air 21 02/26/25 13:45 86 113/73 98 Room Air 21 02/26/25 13:30 85 19 104/67 97 Room Air 21 02/26/25 13:29 97.5 82 16 114/58 96 Room Air 02/26/25 13:24 85 17 118/63 96 Room Air 02/26/25 13:19 86 16 121/64 96 Room Air 02/26/25 13:14 92 17 116/69 96 Room Air 02/26/25 13:09 99 16 115/68 98 Room Air 02/26/25 13:04 104 17 112/73 99 Nonrebreathing Mask 10.0 02/26/25 12:59 97.5 107 16 108/68 99 Nonrebreathing Mask 10.0 02/26/25 12:49 Mask 10.0 02/26/25 12:49 Mask 02/26/25 11:34 101.7 90 19 107/52 99 Room Air 21 02/26/25 11:04 101.7 02/26/25 10:53 Room Air* 0 21 Laboratory: [ ] Laboratory: Test 02/26/25 04:55 02/25/25 06:28 Range/Units White Blood Count 3.9 L 4.8-10.8 K/uL Red Blood Count 3.78 L 4.00-5.50 MIL/uL Hemoglobin 11.4 L 12.0-16.0 g/dL Hematocrit 33.1 L 36-48 % Mean Corpuscular Volume 87.6 79-99 fL Mean Corpuscular Hemoglobin 30.2 27.0-33.0 pg Mean Corpuscular Hemoglobin Concent 34.4 32.0-36.0 g/dL Red Cell Distribution Width 12.5 11.0-15.5 % Platelet Count 151 130-400 K/uL Mean Platelet Volume 10.1 7.5-10.5 fL Immature Granulocyte % (Auto) 0.3 0-1 % Neutrophils (%) (Auto) 68.4 40.0-77.0 % Lymphocytes (%) (Auto) 19.6 L 21.0-51.0 % Monocytes (%) (Auto) 11.2 3.0-13.0 % Eosinophils (%) (Auto) 0.0 0.0-8.0 % Basophils (%) (Auto) 0.5 0.0-5.0 % Neutrophils # (Auto) 2.7 1.8-7.7 K/uL Lymphocytes # (Auto) 0.8 L 1.0-4.8 K/uL Monocytes # (Auto) 0.4 0.1-1.0 K/uL Eosinophils # (Auto) 0.00 0.00-0.70 K/uL Basophils # (Auto) 0.02 0.00-0.20 K/uL Absolute Immature Granulocyte (auto 0.01 0-1 K/uL Nucleated Red Blood Cells 0.0 0.0-0.19 % Sodium Level 136 136-145 mmol/L Potassium Level 3.6 3.5-5.1 mmol/L Chloride Level 103 101-111 mmol/L Carbon Dioxide Level 21 21-32 mmol/L Blood Urea Nitrogen 10 7-18 mg/dL Creatinine 0.6 0.5-1.0 mg/dL Glomerular Filtration Rate Calc 112 >90 mL/min Random Glucose 86 70-105 mg/dL Total Calcium 8.1 L 8.5-10.1 mg/dL Total Bilirubin 0.5 0.2-1.0 mg/dL Direct Bilirubin 0.2 0.0-0.3 mg/dL Aspartate Amino Transf (AST/SGOT) 74 H 10-37 U/L Alanine Aminotransferase (ALT/SGPT) 98 H 12-78 U/L Alkaline Phosphatase 300 H 50-136 U/L Total Protein 6.5 6.0-8.3 g/dL Albumin 2.9 L 3.5-5.0 g/dL Magnesium Level 2.00 1.80-2.40 mg/dL Current Medications Medications (Trade) Dose Ordered Sig/Dionicio Route PRN Reason Start Time Stop Time Status Last Admin Dose Admin Acetaminophen (TYLenol 325MG TAB) 650 mg Q4H PRN PO MILD PAIN (1-3) 02/24/25 16:00 03/26/25 15:59 02/25/25 23:29 650 MG Acetaminophen (TYLenol 650MG SUPPOSITORY) 650 mg Q6H PRN RC TEMPERATURE GREATER THAN 100.4 02/24/25 20:30 03/26/25 20:29 02/26/25 11:04 650 MG Ceftriaxone Sodium (ROCEphine 1G INJ) 1 gm BID IVPB 02/24/25 09:00 02/26/25 12:18 DC 02/26/25 08:11 1 GM Doxycycline Hyclate 250 ml @ 125 mls/hr Q12H IV 02/26/25 12:30 03/08/25 12:29 02/26/25 14:07 125 MLS/HR Metronidazole/ Sodium Chloride (flaGYL) 500 mg Q8H IV 02/24/25 16:00 02/26/25 12:18 DC 02/26/25 08:12 500 MG Morphine Sulfate (morPHINE 4MG SYG) 2 mg Q4H PRN IVP SEVERE PAIN (7-10) 02/24/25 06:00 03/03/25 05:59 02/24/25 12:42 2 MG Ondansetron HCl (zoFRAN 4MG INJ) 4 mg Q6H PRN IV NAUSEA/VOMITING 02/24/25 16:00 03/26/25 15:59 Pantoprazole Sodium (PROTonix 40MG INJ) 40 mg DAILY IVP 02/24/25 09:00 03/26/25 08:59 02/26/25 08:11 40 MG Piperacillin Sod/ Tazobactam Sod (Zosyn 3.375gm+NS 50ml) 3.375 gm Q8H IV 02/26/25 15:00 03/08/25 14:59 02/26/25 16:16 3.375 GM Sodium Chloride 1,000 ml @ 100 mls/hr Q10H IV 02/24/25 05:30 03/26/25 05:29 02/26/25 08:11 100 MLS/HR Diagnostics / Radiology: [COPY/PASTE HERE IF NO REPORTS PLEASE DELETE SECTION] Assessment: [Abdominal pain Gastritis Status post cholecystectomy Hepatic steatosis ] Plan: Case discussed with Dr. Ray MRCP negative for choledocholithiasis Clear fluids and advance diet as toelrated Pantoprazole 40mg po bid Pain meds as needed (avoid NSAIDS) Recommend patient f/u at [facility] in one week for pathology results and further management. Please call with questions, concerns, and change in clinical status. Thank you for this consult] JER TOWNSEND NP Feb 26, 2025 17:18
[2025-02-27] VITALS (9 sets, daily range): BP systolic 94–117; BP diastolic 64–81; PULSE 83–103; RESP 16–24; TEMP 97.3–103; O2SAT 98–99
--- NOTE | 2025-02-27 00:55 | NUR ---
Jayden Cervantes-RECYCLING ATTENDANT, notified @ this time of oral temperature of 103.0, no new orders received; stated to just administer Tylenol as ordered and to continue applying ice-packs.
[2025-02-27 04:49] LABS: IMMATURE GRANULOCYTE ABSOLUTE 0.03 K/uL (0-1); NUCLEATED RED BLOOD CELLS 0.0 % (0.0-0.19); PLATELET COUNT (AUTO) 164 K/uL (130-400); RED BLOOD CELL COUNT(AUTO) 4.12 MIL/uL (4.00-5.50); RED CELL DISTRIBUTION WIDTH 12.6 % (11.0-15.5); WHITE BLOOD COUNT (AUTO) 4.3 K/uL (4.8-10.8)
[2025-02-27 05:10] LABS: ASPARTATE AMINOTRANSFERASE 59.0 U/L (10-37); CREATININE 0.6 mg/dL (0.5-1.0); GLOMERULAR FILTR. RATE CALC 112.0 mL/min (>90); GLUCOSE,RANDOM 83.0 mg/dL (70-105); SODIUM SERUM 137.0 mmol/L (136-145); TOTAL PROTEIN, SERUM 6.8 g/dL (6.0-8.3); UREA NITROGEN, BLOOD 6.0 mg/dL (7-18)
[2025-02-27] MEDS: PoTASSium chloRIDE 20MEQ ER 20 MEQ ERTAB PO PRN (15:58)
--- NOTE | 2025-02-27 18:18 | PN ---
[facility] PROGRESS NOTE Date of Service: Feb 27, 2025 Time of Service: 18:17 SUBJECTIVE: This is a case of a 44-year-old female with no pertinent past medical history who recently underwent laparoscopic cholecystectomy at [facility] on January 26 2025, who presented to the ED with 3 day history of intermittent fever, chills, intermittent squeezing type, severe right-sided abdominal pain radiating to the rectum. Initial vitals temperature 102.6 F, pulse rate 104, respiratory rate 20, blood pressure 126/82 meeting the SIRS criteria. Initial labs WBC 3.5, hemoglobin 12, total bilirubin 1.2, AST 80, ALT 150, alkaline phosphatase 316. Urinalysis positive for leukocyte esterase, ketones, RBC and WBC. Influenza type a and B, SARS COVID, group a strep test results are negative. CT abdomen and pelvis with contrast result revealed uterine fibroid of 1.3cm, mild fatty liver, mild cystitis, CBD 4mm and a component of mild constipation is present in the colon. Abdominal ultrasound revealed no acute process, fatty liver and post cholecystectomy changes. GI was consulted. She is admitted for further workup and treatment. 02/24/2025: Patient is seen and examined at the bedside today. Vitals temperature 98.6, blood pressure 112/65, respiratory rate 20, pulse rate 82, SpO2 greater than 95% on room air. No acute events last night. She complains of right upper quadrant a nd epigastric abdominal pain, nausea. She denies headache, chest pain, palpitations, difficulty in breathing, diarrhea. Labs WBC 4, hemoglobin 12, total bilirubin 1.1, direct bilirubin 0.5, AST improved from 80-67, ALT improved from 150-127, alkaline phosphatase 315. 02/25/2025: Patient is seen and examined at the bedside today in ED-04, her was present in the room. Patient reports feeling better today and her pain as gotten better today. Patient complains of fever every 4 hours. She denies headache, chest pain, palpitations, difficulty in breathing, diarrhea. Labs WBC 4, hemoglobin 11.9, total bilirubin 1.1, direct bilirubin 0.5, AST improved from 67>50, ALT improved from 127>98, alkaline phosphatase 315>333. She underwent MRC P which showed No biliary duct dilatation. No evidence of choledocholithiasis. 02/26/2025: Patient is seen and examined at bedside today in room 313, her was present in the room. Patient still complains of persistent fever. Patient reports her pain has subsided. She denies headache, chest pain, palpitations, difficulty in breathing, diarrhea. Patient had concerns regarding her source of infection for the fevers. Her MRCP results was unremarkable, but cultures, urine cultures were negative. Patient is scheduled for EGD today. Labs WBC 3.9, hemoglobin 11.4, total bilirubin 0.5, direct bilirubin 0.2, AST 50>74, ALT 98>98, alkaline phosphatase 333>300. 02/27/25: Patient is seen and examined at bedside today in room 313, her was present in the room. Patient is still keeps having episodic spells of fever, her overnight fever went as high as 102.9. It is being controlled on acetaminophen and ice packs. Patient EGD showed just gastritis for which GI asked her to be started on pantoprazole 40 mg p.o. b.i.d. they want her to follow up in 1 week after discharge. Still waiting on her typhus serology. Her liver function tests are improving. REVIEW OF SYSTEMS CONSTITUTIONAL: Complaints of fever every 4 hours, denies night sweats. No unintentional weight loss reported. NEUROLOGICAL: Denies headache, motor weakness, sensory deficit, vertigo/spinning sensation, gait abnormalities, or tremors. ENT: No hearing loss, otalgia, otorrhea, rhinitis, rhinorrhea, hoarseness, or sore throat. CARDIOVASCULAR: Denies any exertional angina, dyspnea on exertion, orthopnea, paroxysmal nocturnal dyspnea, palpitations, life-threatening arrhythmias, claudication. PULMONARY: Denies any shortness of breath, cough, phlegm/sputum, hemoptysis, pleuritic chest pain. SLEEP: Denies morning headaches, daytime somnolence or napping GASTROINTESTINAL: Right upper quadrant and epigastric abdominal pain GENITOURINARY: Denies frequency, urgency, nocturia, hematuria or incontinence HEMATOLOGIC: Denies thrombophilia/previous clots, or coagulopathy/bleeding disorders. ONCOLOGIC: Denies personal history of malignancy. DERMATOLOGIC: Denies rashes or pruritus. PSYCHIATRIC: Denies any suicidal or homicidal ideation. Denies hallucinations. PHYSICAL EXAM GENERAL APPEARANCE: The patient is awake, alert, and oriented, in no acute cardiopulmonary distress. NEUROLOGICAL: Cranial nerves II-XII grossly intact. Motor is 5/5 in bilateral upper and lower extremities proximal to distal. No sensory deficits. HEENT: Face is symmetric. Pupils are equal and reactive. Extraocular movements are intact. NECK: Supple. No JVD CHEST: Normal chest expansion. No Telemetry. LUNGS: Absence of any rales, rhonchi or any wheezing. CARDIOVASCULAR: Regular. S1 and S2 normal. No appreciable rubs, murmurs or g allops. ABDOMEN: abdominal tenderness on palpation more prominent in the RUQ, epigastric region Soft and nondistended. There is no rebound, voluntary guarding, or rigidity. : Deferred. No Alcaraz. EXTREMITIES: Non-edematous and not cyanotic. No clubbing. Good capillary ref ill. SKIN: No skin breakdown. Vital Signs (last 8hr) Date Time Temp Pulse Resp B/P (MAP) Pulse Ox O2 Delivery O2 Flow Rate FiO2 02/27/25 17:10 101.7 02/27/25 13:25 97.3 93 16 98/68 97 Room Air LABS: Laboratory: Test 02/27/25 04:36 Range/Units White Blood Count 4.3 L 4.8-10.8 K/uL Red Blood Count 4.12 4.00-5.50 MIL/uL Hemoglobin 12.2 12.0-16.0 g/dL Hematocrit 36.4 36-48 % Mean Corpuscular Volume 88.3 79-99 fL Mean Corpuscular Hemoglobin 29.6 27.0-33.0 pg Mean Corpuscular Hemoglobin Concent 33.5 32.0-36.0 g/dL Red Cell Distribution Width 12.6 11.0-15.5 % Platelet Count 164 130-400 K/uL Mean Platelet Volume 10.2 7.5-10.5 fL Immature Granulocyte % (Auto) 0.7 0-1 % Neutrophils (%) (Auto) 70.6 40.0-77.0 % Lymphocytes (%) (Auto) 23.5 21.0-51.0 % Monocytes (%) (Auto) 4.7 3.0-13.0 % Eosinophils (%) (Auto) 0.0 0.0-8.0 % Basophils (%) (Auto) 0.5 0.0-5.0 % Neutrophils # (Auto) 3.0 1.8-7.7 K/uL Lymphocytes # (Auto) 1.0 1.0-4.8 K/uL Monocytes # (Auto) 0.2 0.1-1.0 K/uL Eosinophils # (Auto) 0.00 0.00-0.70 K/uL Basophils # (Auto) 0.02 0.00-0.20 K/uL Absolute Immature Granulocyte (auto 0.03 0-1 K/uL Nucleated Red Blood Cells 0.0 0.0-0.19 % Sodium Level 137 136-145 mmol/L Potassium Level 3.4 L 3.5-5.1 mmol/L Chloride Level 102 101-111 mmol/L Carbon Dioxide Level 24 21-32 mmol/L Blood Urea Nitrogen 6 L 7-18 mg/dL Creatinine 0.6 0.5-1.0 mg/dL Glomerular Filtration Rate Calc 112 >90 mL/min Random Glucose 83 70-105 mg/dL Total Calcium 8.6 8.5-10.1 mg/dL Total Bilirubin 0.7 # 0.2-1.0 mg/dL Direct Bilirubin 0.3 # 0.0-0.3 mg/dL Aspartate Amino Transf (AST/SGOT) 59 H 10-37 U/L Alanine Aminotransferase (ALT/SGPT) 86 H 12-78 U/L Alkaline Phosphatase 354 H 50-136 U/L Total Protein 6.8 6.0-8.3 g/dL Albumin 3.0 L 3.5-5.0 g/dL Current Medications Medications (Trade) Dose Ordered Sig/Dionicio Route PRN Reason Start Time Stop Time Status Last Admin Dose Admin Acetaminophen (TYLenol 325MG TAB) 650 mg Q4H PRN PO TEMPERATURE GREATER THAN 100 02/24/25 16:00 03/26/25 15:59 02/27/25 17:10 650 MG Acetaminophen (TYLenol 650MG SUPPOSITORY) 650 mg Q6H PRN RC TEMPERATURE GREATER THAN 100.4 02/24/25 20:30 03/26/25 20:29 02/26/25 11:04 650 MG Ceftriaxone Sodium (ROCEphine 1G INJ) 1 gm BID IVPB 02/24/25 09:00 02/26/25 12:18 DC 02/26/25 08:11 1 GM Doxycycline Hyclate 250 ml @ 125 mls/hr Q12H IV 02/26/25 12:30 03/08/25 12:29 02/27/25 13:21 125 MLS/HR Magnesium Sulfate 50 ml @ 0 mls/hr PROTOCOL PRN IV MAGNESIUM PROTOCOL 02/27/25 09:00 03/29/25 08:59 Metronidazole/ Sodium Chloride (flaGYL) 500 mg Q8H IV 02/24/25 16:00 02/26/25 12:18 DC 02/26/25 08:12 500 MG Morphine Sulfate (morPHINE 4MG SYG) 2 mg Q4H PRN IVP SEVERE PAIN (7-10) 02/24/25 06:00 03/03/25 05:59 02/24/25 12:42 2 MG Ondansetron HCl (zoFRAN 4MG INJ) 4 mg Q6H PRN IV NAUSEA/VOMITING 02/24/25 16:00 03/26/25 15:59 Pantoprazole Sodium (PROTonix 40MG INJ) 40 mg DAILY IVP 02/24/25 09:00 03/26/25 08:59 02/27/25 08:32 40 MG Piperacillin Sod/ Tazobactam Sod (Zosyn 3.375gm+NS 50ml) 3.375 gm Q8H IV 02/26/25 15:00 03/08/25 14:59 02/27/25 15:57 3.375 GM Potassium Chloride 100 ml @ 100 mls/hr AD PRN IV POTASSIUM PROTOCOL 02/27/25 09:00 02/27/25 08:46 DC Potassium Chloride 100 ml @ 100 mls/hr AD PRN IV POTASSIUM PROTOCOL 02/27/25 09:00 03/29/25 08:59 Potassium Chloride (K-Dur/Klor-Con 20meq) 20 meq AD PRN PO POTASSIUM PROTOCOL 02/27/25 09:00 03/29/25 08:59 02/27/25 15:58 20 MEQ Potassium Chloride (KCl 10% Elixir 20meq/15ml) 20 meq AD PRN PO POTASSIUM PROTOCOL 02/27/25 09:00 03/29/25 08:59 Sodium Chloride 1,000 ml @ 100 mls/hr Q10H IV 02/24/25 05:30 03/26/25 05:29 02/26/25 08:11 100 MLS/HR DIAGNOSTICS / RADIOLOGY: [ ] ASSESSMENT: Sepsis secondary to possible cholangitis, POA Elevated liver enzymes, POA Recent status post lap cholecystectomy POA Obesity POA Acute cystitis POA Hyponatremia POA, resolved Hypochloremia POA, resolved Uterine fibroid per CT POA Mild fatty liver per CT POA PLAN: NPO Admit the patient to Med/Surg Sepsis secondary to possible cholangitis, POA Initial vitals temperature 99.9 F, pulse rate 104, respiratory rate 20, blood pressure 126/82 and WBC 3.5 with suspected cholangitis [fever+RUQ pain+elevated liver enzymes] suggest sepsis. WBC count today- 4.0, Vitals today Temp- 99.9, Pulse-84, RR-18, Blood pressure- 104/63, Pulse-97 Continue IV fluids @ 100ml/hr Metronidazole, Rocephin were discontinued today. We will order blood culture tests. Continue prn meds for pain, fever, nausea, vomiting GI was consulted and we will follow their recommendations. Patient is scheduled for EGD today. Infectious diseases was consulted today concerning her persistent fever with unknown source. Patient started on Zosyn (day1) and Doxycycline 100mg, as per ID recommendations. Typhus serology was requested as per ID recommendations. MRCP was ordered. Results showed No biliary duct dilatation. No evidence of choledocholithiasis. Chest X-ray was unremarkable. Elevated liver enzymes, POA, improving AST 50>74, ALT 98>98, alkaline phosphatase 333>300. Total bilirubin 0.5, direct bilirubin 0.2 Will Repeat LFTs tomorrow Acute cystitis POA Urine culture positive for leukocyte esterase indicating infection Will Continue IV antibiotics Continue Protonix 40 mg IV bid for GI prophylaxis Continue SCDs for DVT prophylaxis Monitor electrolytes and replace them according to the protocol ATTESTATION BY PHYSICIAN I have seen and examined the patient. I reviewed the documentation, medical decision making, and treatment plan as noted by the resident provider above. I agree with the findings and plan of care. Mark Anguiano MD, ABHINAV MD Feb 27, 2025 18:18
[2025-02-28] VITALS (7 sets, daily range): BP systolic 85–103; BP diastolic 57–71; PULSE 82–110; RESP 18–20; TEMP 97.9–100.3; O2SAT 94–95
[2025-02-28 04:57] LABS: NUCLEATED RED BLOOD CELLS 0.0 % (0.0-0.19); PLATELET COUNT (AUTO) 183.0 K/uL (130-400); RED BLOOD CELL COUNT(AUTO) 3.8 MIL/uL (4.00-5.50); RED CELL DISTRIBUTION WIDTH 12.6 % (11.0-15.5); WHITE BLOOD COUNT (AUTO) 6.2 K/uL (4.8-10.8)
[2025-02-28 05:28] LABS: ASPARTATE AMINOTRANSFERASE 49.0 U/L (10-37); CREATININE 0.5 mg/dL (0.5-1.0); GLOMERULAR FILTR. RATE CALC 117.0 mL/min (>90); GLUCOSE,RANDOM 99.0 mg/dL (70-105); SODIUM SERUM 140.0 mmol/L (136-145); TOTAL PROTEIN, SERUM 6.2 g/dL (6.0-8.3); UREA NITROGEN, BLOOD 7.0 mg/dL (7-18)
--- NOTE | 2025-02-28 14:19 | PN ---
[facility] PROGRESS NOTE Date of Service: Feb 28, 2025 Time of Service: 14:05 SUBJECTIVE: This is a case of a 44-year-old female with no pertinent past medical history who recently underwent laparoscopic cholecystectomy at [facility] on January 26 2025, who presented to the ED with 3 day history of intermittent fever, chills, intermittent squeezing type, severe right-sided abdominal pain radiating to the rectum. Initial vitals temperature 102.6 F, pulse rate 104, respiratory rate 20, blood pressure 126/82 meeting the SIRS criteria. Initial labs WBC 3.5, hemoglobin 12, total bilirubin 1.2, AST 80, ALT 150, alkaline phosphatase 316. Urinalysis positive for leukocyte esterase, ketones, RBC and WBC. Influenza type a and B, SARS COVID, group a strep test results are negative. CT abdomen and pelvis with contrast result revealed uterine fibroid of 1.3cm, mild fatty liver, mild cystitis, CBD 4mm and a component of mild constipation is present in the colon. Abdominal ultrasound revealed no acute process, fatty liver and post cholecystectomy changes. GI was consulted. She is admitted for further workup and treatment. 02/24/2025: Patient is seen and examined at the bedside today. Vitals temperature 98.6, blood pressure 112/65, respiratory rate 20, pulse rate 82, SpO2 greater than 95% on room air. No acute events last night. She complains of right upper quadrant a nd epigastric abdominal pain, nausea. She denies headache, chest pain, palpitations, difficulty in breathing, diarrhea. Labs WBC 4, hemoglobin 12, total bilirubin 1.1, direct bilirubin 0.5, AST improved from 80-67, ALT improved from 150-127, alkaline phosphatase 315. 02/25/2025: Patient is seen and examined at the bedside today in ED-04, her was present in the room. Patient reports feeling better today and her pain as gotten better today. Patient complains of fever every 4 hours. She denies headache, chest pain, palpitations, difficulty in breathing, diarrhea. Labs WBC 4, hemoglobin 11.9, total bilirubin 1.1, direct bilirubin 0.5, AST improved from 67>50, ALT improved from 127>98, alkaline phosphatase 315>333. She underwent MRC P which showed No biliary duct dilatation. No evidence of choledocholithiasis. 02/26/2025: Patient is seen and examined at bedside today in room 313, her was present in the room. Patient still complains of persistent fever. Patient reports her pain has subsided. She denies headache, chest pain, palpitations, difficulty in breathing, diarrhea. Patient had concerns regarding her source of infection for the fevers. Her MRCP results was unremarkable, but cultures, urine cultures were negative. Patient is scheduled for EGD today. Labs WBC 3.9, hemoglobin 11.4, total bilirubin 0.5, direct bilirubin 0.2, AST 50>74, ALT 98>98, alkaline phosphatase 333>300. 02/27/25: Patient is seen and examined at bedside today in room 313, her was present in the room. Patient is still keeps having episodic spells of fever, her overnight fever went as high as 102.9. It is being controlled on acetaminophen and ice packs. Patient EGD showed just gastritis for which GI asked her to be started on pantoprazole 40 mg p.o. b.i.d. they want her to follow up in 1 week after discharge. Still waiting on her typhus serology. Her liver function tests are improving. 02/28/2025 Patient is seen and examined at the bedside. She is noted to have persistent fevers with temperature recordings of 100, 100.2 and 101.7 F overnight and today morning. Pulse rate in 80s to 100s, blood pressure in 90s/60s. No acute events last night. She states that she has no complaints other than her fevers. She mentions that her abdominal pain has significantly improved. She denies headaches, nausea, vomiting, chest pain, palpitations, difficulty in breathing, diarrhea. Labs WBC 6.2, hemoglobin 11.4, potassium 3.3, AST improved from 59-49, Alkaline phosphatase 334. Pending typhus panel results. REVIEW OF SYSTEMS CONSTITUTIONAL: Complaints of fever every 4 hours, denies night sweats. No unintentional weight loss reported. NEUROLOGICAL: Denies headache, motor weakness, sensory deficit, vertigo/spinning sensation, gait abnormalities, or tremors. ENT: No hearing loss, otalgia, otorrhea, rhinitis, rhinorrhea, hoarseness, or sore throat. CARDIOVASCULAR: Denies any exertional angina, dyspnea on exertion, orthopnea, paroxysmal nocturnal dyspnea, palpitations, life-threatening arrhythmias, claudication. PULMONARY: Denies any shortness of breath, cough, phlegm/sputum, hemoptysis, pleuritic chest pain. SLEEP: Denies morning headaches, daytime somnolence or napping GASTROINTESTINAL: Improving Right upper quadrant and epigastric abdominal pain, Constipation GENITOURINARY: Denies frequency, urgency, nocturia, hematuria or incontinence HEMATOLOGIC: Denies thrombophilia/previous clots, or coagulopathy/bleeding disorders. ONCOLOGIC: Denies personal history of malignancy. DERMATOLOGIC: Denies rashes or pruritus. PSYCHIATRIC: Denies any suicidal or homicidal ideation. Denies hallucinations. PHYSICAL EXAM GENERAL APPEARANCE: The patient is awake, alert, and oriented, in no acute cardiopulmonary distress. NEUROLOGICAL: Cranial nerves II-XII grossly intact. Motor is 5/5 in bilateral upper and lower extremities proximal to distal. No sensory deficits. HEENT: Face is symmetric. Pupils are equal and reactive. Extraocular movements are intact. NECK: Supple. No JVD CHEST: Normal chest expansion. No Telemetry. LUNGS: Absence of any rales, rhonchi or any wheezing. CARDIOVASCULAR: Regular. S1 and S2 normal. No appreciable rubs, murmurs or gallops. ABDOMEN: Soft and nondistended. There is no rebound, voluntary guarding, or rigidity. : Deferred. No Alcaraz. EXTREMITIES: Non-edematous and not cyanotic. No clubbing. Good capillary refill. SKIN: No skin breakdown. Vital Signs (last 8hr) Date Time Temp Pulse Resp B/P (MAP) Pulse Ox O2 Delivery O2 Flow Rate FiO2 02/28/25 07:55 98.4 97 20 94/62 94 Room Air 87/58 LABS: Laboratory: Test 02/28/25 04:53 02/28/25 04:34 02/27/25 04:36 Range/Units Magnesium Level 1.80 1.80-2.40 mg/dL White Blood Count 6.2 # 4.8-10.8 K/uL Red Blood Count 3.80 L 4.00-5.50 MIL/uL Hemoglobin 11.4 L 12.0-16.0 g/dL Hematocrit 32.4 L 36-48 % Mean Corpuscular Volume 85.3 79-99 fL Mean Corpuscular Hemoglobin 30.0 27.0-33.0 pg Mean Corpuscular Hemoglobin Concent 35.2 32.0-36.0 g/dL Red Cell Distribution Width 12.6 11.0-15.5 % Platelet Count 183 130-400 K/uL Mean Platelet Volume 10.5 7.5-10.5 fL Nucleated Red Blood Cells 0.0 0.0-0.19 % Sodium Level 140 136-145 mmol/L Potassium Level 3.3 L 3.5-5.1 mmol/L Chloride Level 102 101-111 mmol/L Carbon Dioxide Level 25 21-32 mmol/L Blood Urea Nitrogen 7 7-18 mg/dL Creatinine 0.5 0.5-1.0 mg/dL Glomerular Filtration Rate Calc 117 >90 mL/min Random Glucose 99 70-105 mg/dL Total Calcium 8.4 L 8.5-10.1 mg/dL Total Bilirubin 0.6 0.2-1.0 mg/dL Direct Bilirubin 0.3 0.0-0.3 mg/dL Aspartate Amino Transf (AST/SGOT) 49 H 10-37 U/L Alanine Aminotransferase (ALT/SGPT) 71 12-78 U/L Alkaline Phosphatase 334 H 50-136 U/L Total Protein 6.2 6.0-8.3 g/dL Albumin 2.8 L 3.5-5.0 g/dL Immature Granulocyte % (Auto) 0.7 0-1 % Neutrophils (%) (Auto) 70.6 40.0-77.0 % Lymphocytes (%) (Auto) 23.5 21.0-51.0 % Monocytes (%) (Auto) 4.7 3.0-13.0 % Eosinophils (%) (Auto) 0.0 0.0-8.0 % Basophils (%) (Auto) 0.5 0.0-5.0 % Neutrophils # (Auto) 3.0 1.8-7.7 K/uL Lymphocytes # (Auto) 1.0 1.0-4.8 K/uL Monocytes # (Auto) 0.2 0.1-1.0 K/uL Eosinophils # (Auto) 0.00 0.00-0.70 K/uL Basophils # (Auto) 0.02 0.00-0.20 K/uL Absolute Immature Granulocyte (auto 0.03 0-1 K/uL Current Medications Medications (Trade) Dose Ordered Sig/Dionicio Route PRN Reason Start Time Stop Time Status Last Admin Dose Admin Acetaminophen (TYLenol 325MG TAB) 650 mg Q4H PRN PO TEMPERATURE GREATER THAN 100 02/24/25 16:00 03/26/25 15:59 02/28/25 06:15 650 MG Acetaminophen (TYLenol 650MG SUPPOSITORY) 650 mg Q6H PRN RC TEMPERATURE GREATER THAN 100.4 02/24/25 20:30 03/26/25 20:29 02/26/25 11:04 650 MG Ceftriaxone Sodium (ROCEphine 1G INJ) 1 gm BID IVPB 02/24/25 09:00 02/26/25 12:18 DC 02/26/25 08:11 1 GM Docusate Sodium (COLace 100MG CAP) 100 mg BID PO 02/28/25 12:00 03/30/25 11:59 02/28/25 12:18 100 MG Docusate Sodium (COLace 100MG CAP) 100 mg BID PRN PO CONSTIPATION 02/28/25 12:00 02/28/25 11:36 DC Doxycycline Hyclate 250 ml @ 125 mls/hr Q12H IV 02/26/25 12:30 03/08/25 12:29 02/28/25 12:18 125 MLS/HR Heparin Sodium (Porcine) (HEParin 5,000 UNIT VIAL) 5,000 unit Q12H SQ 02/28/25 12:00 03/30/25 11:59 02/28/25 12:27 5,000 UNIT Magnesium Sulfate 50 ml @ 0 mls/hr PROTOCOL PRN IV MAGNESIUM PROTOCOL 02/27/25 09:00 03/29/25 08:59 Metronidazole/ Sodium Chloride (flaGYL) 500 mg Q8H IV 02/24/25 16:00 02/26/25 12:18 DC 02/26/25 08:12 500 MG Morphine Sulfate (morPHINE 4MG SYG) 2 mg Q4H PRN IVP SEVERE PAIN (7-10) 02/24/25 06:00 03/03/25 05:59 02/24/25 12:42 2 MG Ondansetron HCl (zoFRAN 4MG INJ) 4 mg Q6H PRN IV NAUSEA/VOMITING 02/24/25 16:00 03/26/25 15:59 Pantoprazole Sodium (PROTonix 40MG INJ) 40 mg BID IVP 02/27/25 21:00 02/27/25 19:11 DC Pantoprazole Sodium (PROTonix 40MG INJ) 40 mg DAILY IVP 02/24/25 09:00 02/27/25 19:03 DC 02/27/25 08:32 40 MG Pantoprazole Sodium (PROTonix 40MG TAB) 40 mg BID PO 02/27/25 21:00 02/27/25 19:12 DC Pantoprazole Sodium (PROTonix 40MG TAB) 40 mg BID PO 02/27/25 21:00 03/29/25 20:59 02/28/25 09:04 40 MG Piperacillin Sod/ Tazobactam Sod (Zosyn 3.375gm+NS 50ml) 3.375 gm Q8H IV 02/26/25 15:00 03/08/25 14:59 02/28/25 06:14 3.375 GM Potassium Chloride 100 ml @ 100 mls/hr AD PRN IV POTASSIUM PROTOCOL 02/27/25 09:00 02/27/25 08:46 DC Potassium Chloride 100 ml @ 100 mls/hr AD PRN IV POTASSIUM PROTOCOL 02/27/25 09:00 03/29/25 08:59 Potassium Chloride (K-Dur/Klor-Con 20meq) 20 meq AD PRN PO POTASSIUM PROTOCOL 02/27/25 09:00 03/29/25 08:59 02/28/25 12:17 20 MEQ Potassium Chloride (KCl 10% Elixir 20meq/15ml) 20 meq AD PRN PO POTASSIUM PROTOCOL 02/27/25 09:00 03/29/25 08:59 Sodium Chloride 1,000 ml @ 100 mls/hr Q10H IV 02/24/25 05:30 03/26/25 05:29 02/28/25 09:30 100 MLS/HR DIAGNOSTICS / RADIOLOGY: [ ] ASSESSMENT: Sepsis secondary to possible cholangitis, POA Elevated liver enzymes, POA Persistent fevers, POA Recent status post lap cholecystectomy POA Obesity POA Acute cystitis POA Constipation, POA Hyponatremia POA, resolved Hypochloremia POA, resolved Uterine fibroid per CT POA Mild fatty liver per CT POA PLAN: Sepsis secondary to possible cholangitis, POA Initial vitals temperature 99.9 F, pulse rate 104, respiratory rate 20, blood pressure 126/82 and WBC 3.5 with suspected cholangitis [fever+RUQ pain+elevated liver enzymes] suggest sepsis. WBC count today-6.2 Continue IV fluids @ 100ml/hr Infectious diseases was consulted for persistent fevers with unknown source and was started on Zosyn (day2) and Doxycycline 100mg, as per their recommendations MRCP results showed No biliary duct dilatation. No evidence of choledocholithiasis. Chest X-ray was unremarkable Urine and blood culture results are negative Continue prn meds for pain, fever, nausea, vomiting We will follow up on typhus panel results Elevated liver enzymes, POA, improving AST improved from 59-49, alkaline phosphatase 334 Total bilirubin 0.6, direct bilirubin 0.3 Will Repeat LFTs tomorrow Acute cystitis POA Urine culture positive for leukocyte esterase indicating infection but the urine culture resulted [place] [id number] colony-forming units Will Continue IV antibiotics Continue Protonix 40 mg PO bid for Gastritis as recommended by GI Start heparin 5000 SQ q.12h for DVT prophylaxis Start docusate 100mg BID for constipation Monitor electrolytes and replace them according to the protocol ATTESTATION BY PHYSICIAN I have seen and examined the patient. I reviewed the documentation, medical decision making, and treatment plan as noted by the resident above. I agree with the findings and plan of care. HEATHER WARREN IV, MD, PRIYANKA MD Feb 28, 2025 14:19
--- NOTE | 2025-02-28 23:33 | HMCIMG ---
EXAMINATION: SPECTRAL DOPPLER ULTRASOUND EXAMINATION OF THE BILATERAL LOWER EXTREMITY VEINS. CLINICAL HISTORY: To rule out DVT. COMPARISON: None provided. TECHNIQUE: Real-time ultrasound scan of the veins of the bilateral lower extremity with color Doppler flow, spectral waveform analysis and compression. FINDINGS: DEEP VEINS: The common femoral, superficial femoral, and popliteal veins are echolucent and compressible. There is normal color Doppler flow throughout. The visualized calf veins appear patent. SUPERFICIAL VEINS: The greater saphenous veins are patent and compressible. SOFT TISSUES: No popliteal fossa cyst or other abnormalities. IMPRESSION: No deep venous thrombosis evident in the bilateral lower extremity. No superficial thrombophlebitis in the bilateral lower extremity. /Vee
[2025-03-01] VITALS (9 sets, daily range): BP systolic 98–107; BP diastolic 57–75; PULSE 75–99; RESP 16–20; TEMP 97.7–102.5; O2SAT 96
[2025-03-01 04:41] LABS: IMMATURE GRANULOCYTE ABSOLUTE 0.05 K/uL (0-1); NUCLEATED RED BLOOD CELLS 0.0 % (0.0-0.19); PLATELET COUNT (AUTO) 203 K/uL (130-400); RED BLOOD CELL COUNT(AUTO) 3.59 MIL/uL (4.00-5.50); RED CELL DISTRIBUTION WIDTH 12.7 % (11.0-15.5); WHITE BLOOD COUNT (AUTO) 5.8 K/uL (4.8-10.8)
[2025-03-01 05:11] LABS: ASPARTATE AMINOTRANSFERASE 62.0 U/L (10-37); CREATININE 0.7 mg/dL (0.5-1.0); GLOMERULAR FILTR. RATE CALC 108.0 mL/min (>90); GLUCOSE,RANDOM 97.0 mg/dL (70-105); SODIUM SERUM 140.0 mmol/L (136-145); TOTAL PROTEIN, SERUM 6.1 g/dL (6.0-8.3); UREA NITROGEN, BLOOD 7.0 mg/dL (7-18)
[2025-03-01 05:16] LABS: LYMPHOCYTES % (MANUAL) 24 % (22-44); MONOCYTES % (MANUAL) 8 % (2-9); REACTIVE LYMPHOCYTES 1 % (0-0); SEGMENTED NEUTROPHILS % 67 % (40-70)
[2025-03-01 05:17] LABS: MAN.DIFF COMMENT-IMPRESSION MANUAL DIFFERENTIAL
[2025-03-01 05:18] LABS: PLATELET MORPHOLOGY COMMENT ADEQUATE
[2025-03-01] MEDS: MAGNESIUM 2GM PREMIX 50ML 50 ML IV PRN (06:05)
--- NOTE | 2025-03-01 09:24 | PN ---
INFECTIOUS DISEASE FOLLOWUP NOTE DATE OF SERVICE: 02/27/2025. SUBJECTIVE: The patient is seen and examined on the bedside today. The patient has no fever, no chills. No sore throat or rhinorrhea. ____. No bleeding tendency. No palpitation or orthopnea. No depression. No suicidal ideation. No dysuria or hematuria. No joint pain or joint swelling. PHYSICAL EXAMINATION: VITAL SIGNS: Temperature 97.5. EYES: No icterus. Pupils are equal and reactive. HENT: No oral thrush seen. Moist oral mucosa. NECK: Supple. No JVD or thyromegaly. LUNGS: Good air entry. No rales. No rhonchi. CARDIOVASCULAR: S1 and S2 regular. No murmur heard. ABDOMEN: Soft and nontender. Bowel sound is present. CENTRAL NERVOUS SYSTEM: Awake, alert, oriented x 3. No focal deficits. SKIN: No rashes, no itchiness. LYMPHATIC: No peripheral lymphadenopathy. BACK: No deformity. No pressure ulcer. MUSCULOSKELETAL: No joint swelling, erythema or tenderness. No deformity. LABORATORY DATA: WBC 4.3, hemoglobin 12.2, platelet count 164. ASSESSMENT: A 44-year-old female with multiple problems, which include, * ____. * Elevated liver enzymes. * Thrombocytopenia. * Leukopenia. * Obesity. PLAN: * Continue Zosyn. * Continue doxycycline. * Continue Tylenol. * . * Continue nutritional support. * Monitor electrolytes. * Continue GI prophylaxis. * The patient will be followed up closely. TID: [id number] RECEIPT: [id number]
--- NOTE | 2025-03-01 12:30 | PN ---
INFECTIOUS DISEASE FOLLOWUP NOTE DATE OF SERVICE: 02/28/2025 SUBJECTIVE: The patient is seen and examined at bedside. No fever, no chills. No sore throat, no rhinorrhea. No . Overall, the patient is feeling better . Hepatic function is improving. PHYSICAL EXAMINATION: VITAL SIGNS: Temperature 99.5. EYES: No icterus. Pupils are equal and reactive. HENT: No oral thrush seen. Moist oral mucosa. NECK: Supple. No JVD or thyromegaly. LUNGS: Good air entry. No rales. No rhonchi. CARDIOVASCULAR: S1 and S2, regular. No murmur or gallop. ABDOMEN: Full, soft, nontender. Bowel sound is present. CENTRAL NERVOUS SYSTEM: Awake, alert, oriented x 3. No focal deficits. SKIN: There are some ____. LYMPHATIC: No peripheral lymphadenopathy. BACK: No deformity. No pressure ulcer. HEMATOLOGIC: No bleeding or petechial lesions seen. MUSCULOSKELETAL: No joint swelling, erythema or tenderness. ASSESSMENT: A 44-year-old female with multiple problems. 1. . 2. Elevated liver enzyme. 3. Thrombocytopenia. 4. Leukopenia. 5. Obesity. PLAN: 1. Continue Zosyn. 2. Continue pain management. 3. Continue doxycycline. 4. Continue DVT prophylaxis. 5. Continue antimetics. 6. . 7. The patient will be followed up closely. TID: [id number] RECEIPT: [id number]
[2025-03-01 13:12] LABS: % IRON SATURATION 20.3 % (22-44); IRON, SERUM 52.0 mcg/dL (50-170)
--- NOTE | 2025-03-01 14:21 | PN ---
[facility] PROGRESS NOTE Date of Service: Mar 01, 2025 Time of Service: 14:13 SUBJECTIVE: This is a case of a 44-year-old female with no pertinent past medical history who recently underwent laparoscopic cholecystectomy at [facility] on January 26 2025, who presented to the ED with 3 day history of intermittent fever, chills, intermittent squeezing type, severe right-sided abdominal pain radiating to the rectum. Initial vitals temperature 102.6 F, pulse rate 104, respiratory rate 20, blood pressure 126/82 meeting the SIRS criteria. Initial labs WBC 3.5, hemoglobin 12, total bilirubin 1.2, AST 80, ALT 150, alkaline phosphatase 316. Urinalysis positive for leukocyte esterase, ketones, RBC and WBC. Influenza type a and B, SARS COVID, group a strep test results are negative. CT abdomen and pelvis with contrast result revealed uterine fibroid of 1.3cm, mild fatty liver, mild cystitis, CBD 4mm and a component of mild constipation is present in the colon. Abdominal ultrasound revealed no acute process, fatty liver and post cholecystectomy changes. GI was consulted. She is admitted for further workup and treatment. 02/24/2025: Patient is seen and examined at the bedside today. Vitals temperature 98.6, blood pressure 112/65, respiratory rate 20, pulse rate 82, SpO2 greater than 95% on room air. No acute events last night. She complains of right upper quadrant a nd epigastric abdominal pain, nausea. She denies headache, chest pain, palpitations, difficulty in breathing, diarrhea. Labs WBC 4, hemoglobin 12, total bilirubin 1.1, direct bilirubin 0.5, AST improved from 80-67, ALT improved from 150-127, alkaline phosphatase 315. 02/25/2025: Patient is seen and examined at the bedside today in ED-04, her was present in the room. Patient reports feeling better today and her pain as gotten better today. Patient complains of fever every 4 hours. She denies headache, chest pain, palpitations, difficulty in breathing, diarrhea. Labs WBC 4, hemoglobin 11.9, total bilirubin 1.1, direct bilirubin 0.5, AST improved from 67>50, ALT improved from 127>98, alkaline phosphatase 315>333. She underwent MRC P which showed No biliary duct dilatation. No evidence of choledocholithiasis. 02/26/2025: Patient is seen and examined at bedside today in room 313, her was present in the room. Patient still complains of persistent fever. Patient reports her pain has subsided. She denies headache, chest pain, palpitations, difficulty in breathing, diarrhea. Patient had concerns regarding her source of infection for the fevers. Her MRCP results was unremarkable, but cultures, urine cultures were negative. Patient is scheduled for EGD today. Labs WBC 3.9, hemoglobin 11.4, total bilirubin 0.5, direct bilirubin 0.2, AST 50>74, ALT 98>98, alkaline phosphatase 333>300. 02/27/25: Patient is seen and examined at bedside today in room 313, her was present in the room. Patient is still keeps having episodic spells of fever, her overnight fever went as high as 102.9. It is being controlled on acetaminophen and ice packs. Patient EGD showed just gastritis for which GI asked her to be started on pantoprazole 40 mg p.o. b.i.d. they want her to follow up in 1 week after discharge. Still waiting on her typhus serology. Her liver function tests are improving. 02/28/2025 Patient is seen and examined at the bedside. She is noted to have persistent fevers with temperature recordings of 100, 100.2 and 101.7 F overnight and today morning. Pulse rate in 80s to 100s, blood pressure in 90s/60s. No acute events last night. She states that she has no complaints other than her fevers. She mentions that her abdominal pain has significantly improved. She denies headaches, nausea, vomiting, chest pain, palpitations, difficulty in breathing, diarrhea. Labs WBC 6.2, hemoglobin 11.4, potassium 3.3, AST improved from 59-49, Alkaline phosphatase 334. Pending typhus panel results. 03/01/25: Patient was seen and examined at bedside today in room 313. Patient reports persistent fever but occur less frequently (every 7 hours) compared to prior days. She states that she has no complaints other than her fevers. She mentions that her abdominal pain has significantly improved. She denies headaches, nausea, vomiting, chest pain, palpitations, difficulty in breathing, diarrhea. Labs WBC 5.8, hemoglobin 10.6, potassium 3.3, AST today 62, Alkaline phosphatase 326. Pending typhus panel results. REVIEW OF SYSTEMS CONSTITUTIONAL: Complaints of fever every 4 hours, denies night sweats. No unintentional weight loss reported. NEUROLOGICAL: Denies headache, motor weakness, sensory deficit, vertigo/spinning sensation, gait abnormalities, or tremors. ENT: No hearing loss, otalgia, otorrhea, rhinitis, rhinorrhea, hoarseness, or s ore throat. CARDIOVASCULAR: Denies any exertional angina, dyspnea on exertion, orthopnea, paroxysmal nocturnal dyspnea, palpitations, life-threatening arrhythmias, claudication. PULMONARY: Denies any shortness of breath, cough, phlegm/sputum, hemoptysis, pleuritic chest pain. SLEEP: Denies morning headaches, daytime somnolence or napping GASTROINTESTINAL: Improving Right upper quadrant and epigastric abdominal pain, Constipation GENITOURINARY: Denies frequency, urgency, nocturia, hematuria or incontinence HEMATOLOGIC: Denies thrombophilia/previous clots, or coagulopathy/bleeding disorders. ONCOLOGIC: Denies personal history of malignancy. DERMATOLOGIC: Denies rashes or pruritus. PSYCHIATRIC: Denies any suicidal or homicidal ideation. Denies hallucinations. PHYSICAL EXAM GENERAL APPEARANCE: The patient is awake, alert, and oriented, in no acute cardiopulmonary distress. NEUROLOGICAL: Cranial nerves II-XII grossly intact. Motor is 5/5 in bilateral upper and lower extremities proximal to distal. No sensory deficits. HEENT: Face is symmetric. Pupils are equal and reactive. Extraocular movements are intact. NECK: Supple. No JVD CHEST: Normal chest expansion. No Telemetry. LUNGS: Absence of any rales, rhonchi or any wheezing. CARDIOVASCULAR: Regular. S1 and S2 normal. No appreciable rubs, murmurs or gallops. ABDOMEN: Soft and nondistended. There is no rebound, voluntary guarding, or rigidity. : Deferred. No [place]. EXTREMITIES: Non-edematous and not cyanotic. No clubbing. Good capillary refill. SKIN: No skin breakdown. Vital Signs (last 8hr) Date Time Temp Pulse Resp B/P (MAP) Pulse Ox O2 Delivery O2 Flow Rate FiO2 03/01/25 10:57 97.7 82 20 101/63 100 Room Air 03/01/25 08:00 Room Air* 0 21 03/01/25 07:46 97.7 75 16 98/61 99 Room Air LABS: Laboratory: Test 03/01/25 12:30 03/01/25 04:25 02/28/25 04:53 Range/Units Iron Level 52 50-170 mcg/dL Total Iron Binding Capacity 256 250-450 mcg/dL Percent Iron Saturation 20.3 L 22-44 % White Blood Count 5.8 4.8-10.8 K/uL Red Blood Count 3.59 L 4.00-5.50 MIL/uL Hemoglobin 10.6 L 12.0-16.0 g/dL Hematocrit 30.7 L 36-48 % Mean Corpuscular Volume 85.5 79-99 fL Mean Corpuscular Hemoglobin 29.5 27.0-33.0 pg Mean Corpuscular Hemoglobin Concent 34.5 32.0-36.0 g/dL Red Cell Distribution Width 12.7 11.0-15.5 % Platelet Count 203 130-400 K/uL Mean Platelet Volume 10.2 7.5-10.5 fL Immature Granulocyte % (Auto) 0.9 0-1 % Neutrophils (%) (Auto) 60.5 40.0-77.0 % Lymphocytes (%) (Auto) 31.9 21.0-51.0 % Monocytes (%) (Auto) 5.9 3.0-13.0 % Eosinophils (%) (Auto) 0.3 0.0-8.0 % Basophils (%) (Auto) 0.5 0.0-5.0 % Neutrophils # (Auto) 3.5 1.8-7.7 K/uL Lymphocytes # (Auto) 1.9 1.0-4.8 K/uL Monocytes # (Auto) 0.3 0.1-1.0 K/uL Eosinophils # (Auto) 0.02 0.00-0.70 K/uL Basophils # (Auto) 0.03 0.00-0.20 K/uL Absolute Immature Granulocyte (auto 0.05 0-1 K/uL Segmented Neutrophils % 67 40-70 % Lymphocytes % (Manual) 24 22-44 % Monocytes % (Manual) 8 2-9 % Nucleated Red Blood Cells 0.0 0.0-0.19 % Differential Comment MANUAL DIFFERENTIAL Reactive Lymphocytes 1 H 0-0 % White Cell Morphology Comment See comments Platelet Morphology Comment ADEQUATE Red Blood Cell Morphology NORMAL Sodium Level 140 136-145 mmol/L Potassium Level 3.3 L 3.5-5.1 mmol/L Chloride Level 104 101-111 mmol/L Carbon Dioxide Level 24 21-32 mmol/L Blood Urea Nitrogen 7 7-18 mg/dL Creatinine 0.7 0.5-1.0 mg/dL Glomerular Filtration Rate Calc 108 >90 mL/min Random Glucose 97 70-105 mg/dL Lactic Acid Level 1.0 0.8-2.5 mmol/L Total Calcium 8.3 L 8.5-10.1 mg/dL Total Bilirubin 0.7 0.2-1.0 mg/dL Direct Bilirubin 0.4 #H 0.0-0.3 mg/dL Aspartate Amino Transf (AST/SGOT) 62 H 10-37 U/L Alanine Aminotransferase (ALT/SGPT) 66 12-78 U/L Alkaline Phosphatase 326 H 50-136 U/L C-Reactive Protein, Quantitative 92.50 H 0.5-3.0 mg/L Total Protein 6.1 6.0-8.3 g/dL Albumin 2.7 L 3.5-5.0 g/dL Thyroid Stimulating Hormone (TSH) 1.22 0.36-3.74 uIU/mL Thyroxine (T4) 9.0 4.7-13.3 ug/dL Magnesium Level 1.80 1.80-2.40 mg/dL Current Medications Medications (Trade) Dose Ordered Sig/Dionicio Route PRN Reason Start Time Stop Time Status Last Admin Dose Admin Acetaminophen (TYLenol 325MG TAB) 650 mg Q4H PRN PO TEMPERATURE GREATER THAN 100 02/24/25 16:00 03/26/25 15:59 03/01/25 02:59 650 MG Acetaminophen (TYLenol 650MG SUPPOSITORY) 650 mg Q6H PRN RC TEMPERATURE GREATER THAN 100.4 02/24/25 20:30 03/26/25 20:29 02/26/25 11:04 650 MG Ceftriaxone Sodium (ROCEphine 1G INJ) 1 gm BID IVPB 02/24/25 09:00 02/26/25 12:18 DC 02/26/25 08:11 1 GM Docusate Sodium (COLace 100MG CAP) 100 mg BID PO 02/28/25 12:00 03/30/25 11:59 03/01/25 08:50 100 MG Docusate Sodium (COLace 100MG CAP) 100 mg BID PRN PO CONSTIPATION 02/28/25 12:00 02/28/25 11:36 DC Doxycycline Hyclate 250 ml @ 125 mls/hr Q12H IV 02/26/25 12:30 03/08/25 12:29 03/01/25 12:29 125 MLS/HR Heparin Sodium (Porcine) (HEParin 5,000 UNIT VIAL) 5,000 unit Q12H SQ 02/28/25 12:00 03/30/25 11:59 03/01/25 12:29 5,000 UNIT Magnesium Sulfate 50 ml @ 0 mls/hr PROTOCOL PRN IV MAGNESIUM PROTOCOL 02/27/25 09:00 03/29/25 08:59 03/01/25 06:05 25 MLS/HR Metronidazole/ Sodium Chloride (flaGYL) 500 mg Q8H IV 02/24/25 16:00 02/26/25 12:18 DC 02/26/25 08:12 500 MG Morphine Sulfate (morPHINE 4MG SYG) 2 mg Q4H PRN IVP SEVERE PAIN (7-10) 02/24/25 06:00 03/01/25 08:59 DC 02/24/25 12:42 2 MG Ondansetron HCl (zoFRAN 4MG INJ) 4 mg Q6H PRN IV NAUSEA/VOMITING 02/24/25 16:00 03/26/25 15:59 Pantoprazole Sodium (PROTonix 40MG INJ) 40 mg BID IVP 02/27/25 21:00 02/27/25 19:11 DC Pantoprazole Sodium (PROTonix 40MG INJ) 40 mg DAILY IVP 02/24/25 09:00 02/27/25 19:03 DC 02/27/25 08:32 40 MG Pantoprazole Sodium (PROTonix 40MG TAB) 40 mg BID PO 02/27/25 21:00 02/27/25 19:12 DC Pantoprazole Sodium (PROTonix 40MG TAB) 40 mg BID PO 02/27/25 21:00 03/29/25 20:59 03/01/25 08:50 40 MG Piperacillin Sod/ Tazobactam Sod (Zosyn 3.375gm+NS 50ml) 3.375 gm Q8H IV 02/26/25 15:00 03/08/25 14:59 03/01/25 07:29 3.375 GM Potassium Chloride 100 ml @ 100 mls/hr AD PRN IV POTASSIUM PROTOCOL 02/27/25 09:00 02/27/25 08:46 DC Potassium Chloride 100 ml @ 100 mls/hr AD PRN IV POTASSIUM PROTOCOL 02/27/25 09:00 03/29/25 08:59 Potassium Chloride (K-Dur/Klor-Con 20meq) 20 meq AD PRN PO POTASSIUM PROTOCOL 02/27/25 09:00 03/29/25 08:59 03/01/25 12:28 20 MEQ Potassium Chloride (KCl 10% Elixir 20meq/15ml) 20 meq AD PRN PO POTASSIUM PROTOCOL 02/27/25 09:00 03/29/25 08:59 Sodium Chloride 1,000 ml @ 100 mls/hr Q10H IV 02/24/25 05:30 03/26/25 05:29 02/28/25 09:30 100 MLS/HR DIAGNOSTICS / RADIOLOGY: US VENOUS DOPPLER BILATERAL PATIENT: BALJIT LISA MR#: [id number] : 1980 SEX: F AGE: 44 LOCATION: [facility] ORDER 1523 STATUS: ADM IN REPORT#: [id number] SERVICE 1522 REASON: rule out DVT ORDERING PHYSICIAN: JONY SWARTZ MD PROCEDURE: VENOUS LIT - US VENOUS DOPPLER BILATERAL EXAMINATION: SPECTRAL DOPPLER ULTRASOUND EXAMINATION OF THE BILATERAL LOWER EXTREMITY VEINS. CLINICAL HISTORY: To rule out DVT. COMPARISON: None provided. TECHNIQUE: Real-time ultrasound scan of the veins of the bilateral lower extremity with color Doppler flow, spectral waveform analysis and compression. FINDINGS: DEEP VEINS: The common femoral, superficial femoral, and popliteal veins are echolucent and compressible. There is normal color Doppler flow throughout. The visualized calf veins appear patent. SUPERFICIAL VEINS: The greater saphenous veins are patent and compressible. SOFT TISSUES: No popliteal fossa cyst or other abnormalities. IMPRESSION: No deep venous thrombosis evident in the bilateral lower extremity. No superficial thrombophlebitis in the bilateral lower extremity. /[place] DICTATED BY: ADRI JOHNSON Jr., MD DATE: 03/01/2532 ELECTRONICALLY SIGNED BY: ADRI JOHNSON Jr., MD DATE: 03/01/2532 ASSESSMENT: Sepsis secondary to possible cholangitis, POA Elevated liver enzymes, POA Persistent fevers, POA Recent status post lap cholecystectomy POA Obesity POA Acute cystitis POA Constipation, POA Hyponatremia POA, resolved Hypochloremia POA, resolved Uterine fibroid per CT POA Mild fatty liver per CT POA PLAN: Sepsis secondary to possible cholangitis, POA Initial vitals temperature 99.9 F, pulse rate 104, respiratory rate 20, blood pressure 126/82 and WBC 3.5 with suspected cholangitis [fever+RUQ pain+elevated liver enzymes] suggest sepsis. WBC count today-5.8 Continue IV fluids @ 100ml/hr Infectious diseases was consulted for persistent fevers with unknown source and was started on Zosyn (day4) and Doxycycline (day4) 100mg, as per their recommendations MRCP results showed No biliary duct dilatation. No evidence of choledocholithiasis. Chest X-ray was unremarkable. Doppler US for bilateral lower limbs was unremarkable. ECHO was done today, awaiting report. CT abdomen w/contrast was ordered today for suspected intraabdominal abscess as the source of infection. Urine and blood culture results are negative Continue prn meds for pain, fever, nausea, vomiting We will follow up on typhus panel results Elevated liver enzymes, POA, improving AST today was 62, alkaline phosphatase 326 Total bilirubin 0.7, direct bilirubin 0.4 Will Repeat LFTs tomorrow Acute cystitis POA Urine culture positive for leukocyte esterase indicating infection but the urine culture resulted in less than [id number] colony-forming units Will Continue IV antibiotics Continue Protonix 40 mg PO bid for Gastritis as recommended by GI Start heparin 5000 SQ q.12h for DVT prophylaxis Start docusate 100mg BID for constipation Monitor electrolytes and replace them according to the protocol ATTESTATION BY PHYSICIAN I have seen and examined the patient. I reviewed the documentation, medical decision making, and treatment plan as noted by the resident provider above. I agree with the findings and plan of care. JUNIOR HAAS MD, SHAJI MD Mar 01, 2025 14:21
--- NOTE | 2025-03-01 14:24 | CONS ---
UNIQUE CORTEZ Sherman 03/01/25 1424: CONSULT REFERRING PHYSICIAN: Dr. Juarez REASON FOR CONSULT: Fever of Unknown Origin HISTORY HPI: This is a case of a 44-year-old female with no pertinent past medical history who recently underwent laparoscopic cholecystectomy at [facility] on January 26 2025, who presented to the ED with 3 day history of intermittent fever, chills, intermittent squeezing type, severe right-sided abdominal pain radiating to the rectum. Initial vitals temperature 102.6 F, pulse rate 104, respiratory rate 20, blood pressure 126/82 meeting the SIRS criteria. Initial labs WBC 3.5, hemoglobin 12, total bilirubin 1.2, AST 80, ALT 150, alkaline gene sphatase 316. Urinalysis positive for leukocyte esterase, ketones, RBC and WBC. Influenza type a and B, SARS COVID, group a strep test results are negative. CT abdomen and pelvis with contrast result revealed uterine fibroid of 1.3cm, mild fatty liver, mild cystitis, CBD 4mm and a component of mild constipation is present in the colon. Abdominal ultrasound revealed no acute process, fatty liver and post cholecystectomy changes. GI was consulted. She is admitted for further workup and treatment. Patient continues to have persistent fevers with temperature recordings of 100, 100.2, 101.7. Patient states that her abdominal pain has significantly improved. She denies headache, nausea, vomiting, chest pain, palpitations, difficulty breathing, diarrhea, or rash. Remarkable labs: WBC 5.8, Hgb 10.6, Hct 30.7, platelets 203, sodium 140, potassium 3.3, BUN 7, creatinine 0.7, iron 52, TIBC 256, percent saturation 20.3. Pending results from flow cytometry and direct diana. ALLERGIES: Coded Allergies: No Known Drug Allergies (Verified Allergy, 11/15/11) REVIEW OF SYSTEMS CONSTITUTIONAL: FEVER HEENT: No JAUNDICE, No SORE THROAT, No SINUS PRESSURE, No VISION CHANGES RESPIRATORY: No COUGH, No CHEST PAIN, No SHORTNESS OF BREATH, No HEMOPTYSIS CARDIOVASCULAR: No PALPATIONS, No DYSPNEA ON EXERTION, No SYNCOPE GASTROINTESTINAL: No NAUSEA, No VOMITING, No DIARRHEA, No DYSPHAGIA, No CONSTIPATION, No ABDOMINAL PAIN, No HEMATEMESIS, No HEMATOCHEZIA, No MELENA GENITOURINARY: No DYSURIA, No HEMATURIA HEMATOLOGIC/LYMPHATIC: No EASY BRUISING, No CERVICAL ADENOPATHY, No AXILLARY ADENOPATHY, No INGUINAL ADENOPATHY MUSCULOSKELETAL: NORMAL RANGE OF MOTION SKIN/BREASTS: No BREAST MASS, No NIPPLE INVERSION, No RASH NEUROLOGICAL: No WEAKNESS-EXTREMETIES, No DIPLOPIA, No NUMBNESS, No TINGLING PSYCHOLOGICAL: No SUICIDAL IDEATION PHYSICAL EXAM VITALS: Vital Signs Date Time Temp Pulse Resp B/P (MAP) Pulse Ox O2 Delivery O2 Flow Rate FiO2 03/01/25 10:57 97.7 82 20 101/63 100 Room Air 03/01/25 08:00 0 21 GENERAL: ALERT, ORIENTED, APPEARS-NO ACUTE DISTRESS EYES: PUPILS EQUAL/REACTIVE ENT/NECK: OROPHARYNX IS CLEAR, NECK SUPPLE W/O MASSES RESPIRATORY: LUNGS CLEAR-AUSC/PERCUS CARDIOVASCULAR: REGULAR RATE GASTROINTESTINAL: ABDOMEN IS SOFT HEMATOLOGY/LYMPHATIC: No CERVICAL ADENOPATHY, No SUPRACLAVICULR ADENOPATHY, No AXILLARY ADENOPATHY, No INGUINAL ADENOPATHY MUSCULOSKELETAL: No CYANOSIS-EXTREMETIES, No CLUBBING, No EDEMA SKIN/BREASTS: No MASSES, No RASH, No HIVES NEUROLOGICAL: No GROSSLY INTACT PSYCHOLOGICAL: MINI MENTAL ASSMT INTACT DIAGNOSTIC STUDIES [address] [address] IMAGING REPORT Signed PATIENT: BALJIT LISA MR#: [id number] : 1980 SEX: F AGE: 44 LOCATION: [facility] ORDER 1523 STATUS: ADM IN REPORT#: [id number] SERVICE 1522 REASON: rule out DVT ORDERING PHYSICIAN: JONY SWARTZ MD PROCEDURE: VENOUS LIT - US VENOUS DOPPLER BILATERAL EXAMINATION: SPECTRAL DOPPLER ULTRASOUND EXAMINATION OF THE BILATERAL LOWER EXTREMITY VEINS. CLINICAL HISTORY: To rule out DVT. COMPARISON: None provided. TECHNIQUE: Real-time ultrasound scan of the veins of the bilateral lower extremity with color Doppler flow, spectral waveform analysis and compression. FINDINGS: DEEP VEINS: The common femoral, superficial femoral, and popliteal veins are echolucent and compressible. There is normal color Doppler flow throughout. The visualized calf veins appear patent. SUPERFICIAL VEINS: The greater saphenous veins are patent and compressible. SOFT TISSUES: No popliteal fossa cyst or other abnormalities. IMPRESSION: No deep venous thrombosis evident in the bilateral lower extremity. No superficial thrombophlebitis in the bilateral lower extremity. /[place] DICTATED BY: ADRI JOHNSON Jr., MD DATE: 03/01/2532 ELECTRONICALLY SIGNED BY: ADRI JOHNSON Jr., MD DATE: 03/01/2532 DELICIA ART MD 03/01/25 1623: PLAN Peripheral blood smear actually showed patient to have a spherocytes with microcytosis. 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 Patient also have rouleaux phenomena. We will ask for flow cytometry of peripheral blood. Patient have spherocytosis. We will ask for direct Diana test to be done on this patient. Patient with persistent fever. This patient to be continued on antibiotic treatment. Patient may need bone marrow biopsy. UNIQUE CORTEZ Mar 01, 2025 14:24 DELICIA ART MD Mar 01, 2025 16:23
--- NOTE | 2025-03-01 15:02 | PN ---
INFECTIOUS DISEASE PROGRESS NOTE Date of Service: Mar 01, 2025 SUBJECTIVE: This is a 44-year-old female patient with a history of a recent lap cholecystectomy who presented to the hospital with chief complaint of abdominal pain, fever and chills. Patient is currently on Zosyn and doxycycline IV. Alex mckeon is still had a fever of 102.6 earlier this morning. We will obtain consult with die barber and repeat blood cultures. PHYSICAL EXAM EYES: Anicteric. Pupils equal and reactive. HENT: No oral thrush seen, moist Oral mucosa NECK: Supple, no JVD or thyromegaly. LUNGS: Good air entry. No rales, no rhonchi. CARDIOVASCULAR: S1, S2 regular. No murmur heard. ABDOMEN: Soft, non tender, bowel sounds present, no organomegaly. CENTRAL NERVOUS SYSTEM: Awake, alert, oriented x 3. Abdominal pain POA. SKIN: No rashes, no swelling. LYMPHATICS: No peripheral lymphadenopathy. MUSCULOSKELETAL: No joint swelling, erythema or tenderness. EXTREMITIES: No cyanosis or clubbing. BACK: No deformity, no pressure ulcer. GENITOURINARY: No dysuria or hematuria. Vital Sign (Last 12 Hours) 03/01/25 03/01/25 03/01/25 03/01/25 03:59 04:00 07:46 08:00 Temp 99.3 102.6 97.7 Pulse 99 75 Resp 20 16 B/P (MAP) 103/63 98/61 Pulse Ox 96 99 O2 Delivery Room Air Room Air Room Air* O2 Flow Rate 0 FiO2 21 03/01/25 10:57 Temp 97.7 Pulse 82 Resp 20 B/P (MAP) 101/63 Pulse Ox 100 O2 Delivery Room Air Intake & Output (last 24hrs) 02/28/25 02/28/25 03/01/25 14:59 22:59 06:59 Intake Total 400.0 ml Output Total 900 ml 200 ml Balance -900 ml -200 ml 400.0 ml LABS: Laboratory: Test 03/01/25 12:30 03/01/25 04:25 02/28/25 04:53 Range/Units Iron Level 52 50-170 mcg/dL Total Iron Binding Capacity 256 250-450 mcg/dL Percent Iron Saturation 20.3 L 22-44 % White Blood Count 5.8 4.8-10.8 K/uL Red Blood Count 3.59 L 4.00-5.50 MIL/uL Hemoglobin 10.6 L 12.0-16.0 g/dL Hematocrit 30.7 L 36-48 % Mean Corpuscular Volume 85.5 79-99 fL Mean Corpuscular Hemoglobin 29.5 27.0-33.0 pg Mean Corpuscular Hemoglobin Concent 34.5 32.0-36.0 g/dL Red Cell Distribution Width 12.7 11.0-15.5 % Platelet Count 203 130-400 K/uL Mean Platelet Volume 10.2 7.5-10.5 fL Immature Granulocyte % (Auto) 0.9 0-1 % Neutrophils (%) (Auto) 60.5 40.0-77.0 % Lymphocytes (%) (Auto) 31.9 21.0-51.0 % Monocytes (%) (Auto) 5.9 3.0-13.0 % Eosinophils (%) (Auto) 0.3 0.0-8.0 % Basophils (%) (Auto) 0.5 0.0-5.0 % Neutrophils # (Auto) 3.5 1.8-7.7 K/uL Lymphocytes # (Auto) 1.9 1.0-4.8 K/uL Monocytes # (Auto) 0.3 0.1-1.0 K/uL Eosinophils # (Auto) 0.02 0.00-0.70 K/uL Basophils # (Auto) 0.03 0.00-0.20 K/uL Absolute Immature Granulocyte (auto 0.05 0-1 K/uL Segmented Neutrophils % 67 40-70 % Lymphocytes % (Manual) 24 22-44 % Monocytes % (Manual) 8 2-9 % Nucleated Red Blood Cells 0.0 0.0-0.19 % Differential Comment MANUAL DIFFERENTIAL Reactive Lymphocytes 1 H 0-0 % White Cell Morphology Comment See comments Platelet Morphology Comment ADEQUATE Red Blood Cell Morphology NORMAL Sodium Level 140 136-145 mmol/L Potassium Level 3.3 L 3.5-5.1 mmol/L Chloride Level 104 101-111 mmol/L Carbon Dioxide Level 24 21-32 mmol/L Blood Urea Nitrogen 7 7-18 mg/dL Creatinine 0.7 0.5-1.0 mg/dL Glomerular Filtration Rate Calc 108 >90 mL/min Random Glucose 97 70-105 mg/dL Lactic Acid Level 1.0 0.8-2.5 mmol/L Total Calcium 8.3 L 8.5-10.1 mg/dL Total Bilirubin 0.7 0.2-1.0 mg/dL Direct Bilirubin 0.4 #H 0.0-0.3 mg/dL Aspartate Amino Transf (AST/SGOT) 62 H 10-37 U/L Alanine Aminotransferase (ALT/SGPT) 66 12-78 U/L Alkaline Phosphatase 326 H 50-136 U/L C-Reactive Protein, Quantitative 92.50 H 0.5-3.0 mg/L Total Protein 6.1 6.0-8.3 g/dL Albumin 2.7 L 3.5-5.0 g/dL Thyroid Stimulating Hormone (TSH) 1.22 0.36-3.74 uIU/mL Thyroxine (T4) 9.0 4.7-13.3 ug/dL Magnesium Level 1.80 1.80-2.40 mg/dL ASSESSMENT: Persistent fevers. Leukocytosis. Abdominal pain. Elevated liver enzymes. Thrombocytopenia. Recent laparoscopic cholecystectomy last month. PLAN: Obtain consult with die barber evaluation. Continue Zosyn IV. Continue doxycycline. Continue pain management. We will repeat blood cultures. Continue GI prophylaxis. This case was reviewed and discussed with my supervising physician Dr. Chairez and the above assessment and plan was formulated and agreed upon. ATTESTATION BY PHYSICIAN I have seen and examined the patient. I reviewed the documentation, medical decision making, and treatment plan as noted by the mid-level provider above. I agree with the findings and plan of care. JAMES CHAIREZ MD, [facility] Mar 01, 2025 15:02
[2025-03-01] MEDS ORDERED: IOHEXOL-350 75 ML VIAL IV ONE (16:17)
[2025-03-02] VITALS (7 sets, daily range): BP systolic 87–103; BP diastolic 56–69; PULSE 71–86; RESP 16–24; TEMP 97.8–98.9; O2SAT 98–99
--- NOTE | 2025-03-02 00:28 | HMCSR ---
APPROVED REPORT EXAM: Two-dimensional and M-mode echocardiogram with Doppler and color Doppler. INDICATION ICD: Persistent fever with unkown source of infection 2D Dimensions RVDd3.4 cmLVEF(%)66.4 (>50%)LVED Vol(simp.)72.0 mL IVSd0.6 (0.7-1.1cm)FS(%)37 %LVES Vol(simp.)27.0 mL LVDd5.0 (3.8-5.6cm)LA (2D)3.5 (1.6-4.0cm)LVEF(%, simp.)63 % PWd0.8 (0.7-1.1cm)Ao Root(2D)2.9 (2.0-3.7cm)LA ESV INDEX (BP)27.46 mL/m2 IVSs0.9 cmLVOT diam2.0 (1.8-2.4cm) LVDs3.2 (2.5-4.0cm) PWs1.1 cm Deformation Strain Apical 4-19.2 % Apical 2-20.6 % Apical 3-16.6 % Global Strain-18.8 % M-Mode Dimensions EPSS0.7 cm LA (MM)3.4 (1.6-4.0cm) Ao Root(MM)2.7 (2.0-3.7cm) Aortic Valve AoV Vmax1.4 m/[place] Peak GR8.0 mmHgLVOT Vmax1.0 m/s AoV VTI0.3 mAo Mean GR4.5 mmHgLVOT VTI0.20 m TERESA (VMAX)2.25 cm2AVA (VTI) 2.2 cm2 Mitral Valve MV E Vmax49.5 cm/sDECEL Srng537 ms MV A Vmax69.2 cm/sP 1/2 T33 ms E/A ratio0.7MVA (PHT)6.7 cm2 TDI E/E' Medial7.0E/E' Lateral5.3 Medial E' Peak V7.11 cm/sLateral E' Peak V9.34 cm/s Pulmonary Valve PV Vmax1.0 m/sPV VTI0.17 mPV Mean GR2.5 mmHg PV Peak GR4.3 mmHg Tricuspid Valve TR Vmax1.9 m/sRAP (EST) 3 alOlOYWA51.8 mmHg TR Peak GR14.8 mmHg Left Ventricle The left ventricle is normal size. Normal left ventricular systolic wall motion. There is normal left ventricular wall thickness. Left ventricle systolic function is low-normal, estimated LVEF 50-55%. G rade 1 diastolic dysfunction. Right Ventricle The right ventricle is normal size. The right ventricular systolic function is normal. Atria The left atrium size is normal. The right atrium size is normal. Aortic Valve The aortic valve is normal in structure. Trace aortic regurgitation. No aortic valvular vegetation no lynne. There is no aortic valvular stenosis. Mitral Valve The mitral valve is normal in structure. Trace mitral regurgitation. There are no mitral valve vegeta tion noted. There is no mitral valve stenosis. Tricuspid Valve The tricuspid valve is normal in structure. Trace tricuspid regurgitation. RVSP is 15 mmHg. There is no tricuspid valve vegetation. Pulmonic Valve Pulmonic valve is not well visualized. Great Vessels The aortic root is normal in size. The IVC is normal in size and collapses >50% with inspiration. Pericardium There is no pericardial effusion. Other Information Quality : Adequate Conclusion The cardiac chambers are normal in size. There is normal left ventricular wall thickness. Normal left ventricular systolic wall motion. Left ventricle systolic function is low-normal, estimated LVEF 50-55%. Grade 1 diastolic dysfunction. Trace aortic regurgitation. Trace mitral regurgitation. Trace tricuspid regurgitation. No obvious vegetations were seen on any of the valves. PASP is 18 mmHg. There is no pericardial effusion.
[2025-03-02 05:40] LABS: IMMATURE GRANULOCYTE ABSOLUTE 0.07 K/uL (0-1); NUCLEATED RED BLOOD CELLS 0.0 % (0.0-0.19); PLATELET COUNT (AUTO) 222 K/uL (130-400); RED BLOOD CELL COUNT(AUTO) 3.57 MIL/uL (4.00-5.50); RED CELL DISTRIBUTION WIDTH 12.9 % (11.0-15.5); WHITE BLOOD COUNT (AUTO) 5.3 K/uL (4.8-10.8)
[2025-03-02 06:08] LABS: ASPARTATE AMINOTRANSFERASE 145.0 U/L (10-37); CREATININE 0.5 mg/dL (0.5-1.0); GLOMERULAR FILTR. RATE CALC 117.0 mL/min (>90); GLUCOSE,RANDOM 93.0 mg/dL (70-105); SODIUM SERUM 141.0 mmol/L (136-145); TOTAL PROTEIN, SERUM 6.0 g/dL (6.0-8.3); UREA NITROGEN, BLOOD 5.0 mg/dL (7-18)
[2025-03-02] MEDS: PoTASSium chl 10% ELIXIR 20MEQ 20 MEQ/15 ML UDCUP PO PRN (06:47)
--- NOTE | 2025-03-02 11:52 | HMCIMG ---
EXAMINATION : CT Abdomen and Pelvis with contrast. CLINICAL HISTORY: Evaluation for intraabdmonial pathology, Persistent Fever/ Evaluation for intraabdmonial pathology. TECHNIQUE: Multiple contiguous axial CT images were obtained through the abdomen and pelvis following the administration of intravenous contrast. Coronal and sagittal reconstructions were also obtained. COMPARISON: Prior CT abdomen and pelvis on 02/24/2025 FINDINGS: Included chest reveals fibroatelectatic bands in the left lower lobe. The liver is normal in caliber with uniform decreased density. The gallbladder is surgically absent. The spleen, pancreas, adrenal glands and kidneys appear within normal limits. Bowel loops are normal in caliber without evidence of obstruction, ileus, or obvious bowel wall thickening. Normal appendix. Urinary bladder is well distended with mild wall thickening. Uterus is normal in caliber with stable right lateral wall uterine fibroid measuring 1.3 x 1.1 cm. Both the ovaries are normal. There is no ascites or lymphadenopathy. The opacified abdominal and pelvic vessels are patent. There are atheromatous wall calcification of the aorta and iliac arteries. No acute or suspicious osseous abnormality. There are multilevel mild degenerative spondylotic changes of the spine. IMPRESSION: Thickening of the urinary bladder which may be due to underdistention or cystitis. No bowel obstruction or inflammation. Normal appendix. Normal kidneys. No hydronephrosis. Hepatic steatosis. Status post cholecystectomy. Stable right lateral wall uterine fibroid. /Rowdy
--- NOTE | 2025-03-02 12:04 | PN ---
[facility] PROGRESS NOTE Date of Service: Mar 02, 2025 Time of Service: 11:56 SUBJECTIVE: This is a case of a 44-year-old female with no pertinent past medical history who recently underwent laparoscopic cholecystectomy at [facility] on January 26 2025, who presented to the ED with 3 day history of intermittent fever, chills, intermittent squeezing type, severe right-sided abdominal pain radiating to the rectum. Initial vitals temperature 102.6 F, pulse rate 104, respiratory rate 20, blood pressure 126/82 meeting the SIRS criteria. Initial labs WBC 3.5, hemoglobin 12, total bilirubin 1.2, AST 80, ALT 150, alkaline phosphatase 316. Urinalysis positive for leukocyte esterase, ketones, RBC and WBC. Influenza type a and B, SARS COVID, group a strep test results are negative. CT abdomen and pelvis with contrast result revealed uterine fibroid of 1.3cm, mild fatty liver, mild cystitis, CBD 4mm and a component of mild constipation is present in the colon. Abdominal ultrasound revealed no acute process, fatty liver and post cholecystectomy changes. GI was consulted. She is admitted for further workup and treatment. 02/24/2025: Patient is seen and examined at the bedside today. Vitals temperature 98.6, blood pressure 112/65, respiratory rate 20, pulse rate 82, SpO2 greater than 95% on room air. No acute events last night. She complains of right upper quadrant a nd epigastric abdominal pain, nausea. She denies headache, chest pain, palpitations, difficulty in breathing, diarrhea. Labs WBC 4, hemoglobin 12, total bilirubin 1.1, direct bilirubin 0.5, AST improved from 80-67, ALT improved from 150-127, alkaline phosphatase 315. 02/25/2025: Patient is seen and examined at the bedside today in ED-04, her was present in the room. Patient reports feeling better today and her pain as gotten better today. Patient complains of fever every 4 hours. She denies headache, chest pain, palpitations, difficulty in breathing, diarrhea. Labs WBC 4, hemoglobin 11.9, total bilirubin 1.1, direct bilirubin 0.5, AST improved from 67>50, ALT improved from 127>98, alkaline phosphatase 315>333. She underwent MRC P which showed No biliary duct dilatation. No evidence of choledocholithiasis. 02/26/2025: Patient is seen and examined at bedside today in room 313, her was present in the room. Patient still complains of persistent fever. Patient reports her pain has subsided. She denies headache, chest pain, palpitations, difficulty in breathing, diarrhea. Patient had concerns regarding her source of infection for the fevers. Her MRCP results was unremarkable, but cultures, urine cultures were negative. Patient is scheduled for EGD today. Labs WBC 3.9, hemoglobin 11.4, total bilirubin 0.5, direct bilirubin 0.2, AST 50>74, ALT 98>98, alkaline phosphatase 333>300. 02/27/25: Patient is seen and examined at bedside today in room 313, her was present in the room. Patient is still keeps having episodic spells of fever, her overnight fever went as high as 102.9. It is being controlled on acetaminophen and ice packs. Patient EGD showed just gastritis for which GI asked her to be started on pantoprazole 40 mg p.o. b.i.d. they want her to follow up in 1 week after discharge. Still waiting on her typhus serology. Her liver function tests are improving. 02/28/2025 Patient is seen and examined at the bedside. She is noted to have persistent fevers with temperature recordings of 100, 100.2 and 101.7 F overnight and today morning. Pulse rate in 80s to 100s, blood pressure in 90s/60s. No acute events last night. She states that she has no complaints other than her fevers. She mentions that her abdominal pain has significantly improved. She denies headaches, nausea, vomiting, chest pain, palpitations, difficulty in breathing, diarrhea. Labs WBC 6.2, hemoglobin 11.4, potassium 3.3, AST improved from 59-49, Alkaline phosphatase 334. Pending typhus panel results. 03/01/25: Patient was seen and examined at bedside today in room 313. Patient reports persistent fever but occur less frequently (every 7 hours) compared to prior days. She states that she has no complaints other than her fevers. She mentions that her abdominal pain has significantly improved. She denies headaches, nausea, vomiting, chest pain, palpitations, difficulty in breathing, diarrhea. Labs WBC 5.8, hemoglobin 10.6, potassium 3.3, AST today 62, Alkaline phosphatase 326. Pending typhus panel results. 03/02/2025: Patient was seen and examined at bedside today in room 313. Patient reports feeling a lot better today and she didn't have any fever for the last 12 hours and her Tmax was 99F. Patient report she is been ambulating well now and her appetite is improving. Patient denies abdominal pain. She denies headaches, nausea, vomiting, chest pain, palpitations, difficulty in breathing, diarrhea. Labs WBC 5.3, hemoglobin 10.6, potassium 3.5, AST today 145, Alkaline phosphatase 331. Pending typhus panel results. ECHO findings were unremarkable without any evidence of vegetations. REVIEW OF SYSTEMS CONSTITUTIONAL: Complaints of fever every 4 hours, denies night sweats. No unintentional weight loss reported. NEUROLOGICAL: Denies headache, motor weakness, sensory deficit, vertigo/spinning sensation, gait abnormalities, or tremors. ENT: No hearing loss, otalgia, otorrhea, rhinitis, rhinorrhea, hoarseness, or sore throat. CARDIOVASCULAR: Denies any exertional angina, dyspnea on exertion, orthopnea, paroxysmal nocturnal dyspnea, palpitations, life-threatening arrhythmias, claudication. PULMONARY: Denies any shortness of breath, cough, phlegm/sputum, hemoptysis, pleuritic chest pain. SLEEP: Denies morning headaches, daytime somnolence or napping GASTROINTESTINAL: Improving Right upper quadrant and epigastric abdominal pain. GENITOURINARY: Denies frequency, urgency, nocturia, hematuria or incontinence HEMATOLOGIC: Denies thrombophilia/previous clots, or coagulopathy/bleeding disorders. ONCOLOGIC: Denies personal history of malignancy. DERMATOLOGIC: Denies rashes or pruritus. PSYCHIATRIC: Denies any suicidal or homicidal ideation. Denies hallucinations. PHYSICAL EXAM GENERAL APPEARANCE: The patient is awake, alert, and oriented, in no acute cardiopulmonary distress. NEUROLOGICAL: Cranial nerves II-XII grossly intact. Motor is 5/5 in bilateral upper and lower extremities proximal to distal. No sensory deficits. HEENT: Face is symmetric. Pupils are equal and reactive. Extraocular movements are intact. NECK: Supple. No JVD CHEST: Normal chest expansion. No Telemetry. LUNGS: Absence of any rales, rhonchi or any wheezing. CARDIOVASCULAR: Regular. S1 and S2 normal. No appreciable rubs, murmurs or ga llops. ABDOMEN: Soft and nondistended. There is no rebound, voluntary guarding, or rigidity. : Deferred. No [place]. EXTREMITIES: Non-edematous and not cyanotic. No clubbing. Good capillary refill. SKIN: No skin breakdown. Vital Signs (last 8hr) Date Time Temp Pulse Resp B/P (MAP) Pulse Ox O2 Delivery O2 Flow Rate FiO2 03/02/25 11:05 98.1 83 20 87/57 100 Room Air 03/02/25 08:32 99 Room Air* 0 21 03/02/25 07:52 98.2 79 16 95/66 99 Room Air 03/02/25 03:58 99.0 71 20 103/63 97 Room Air LABS: Laboratory: Test 03/02/25 05:17 03/01/25 12:30 03/01/25 04:25 Range/Units White Blood Count 5.3 4.8-10.8 K/uL Red Blood Count 3.57 L 4.00-5.50 MIL/uL Hemoglobin 10.6 L 12.0-16.0 g/dL Hematocrit 31.3 L 36-48 % Mean Corpuscular Volume 87.7 79-99 fL Mean Corpuscular Hemoglobin 29.7 27.0-33.0 pg Mean Corpuscular Hemoglobin Concent 33.9 32.0-36.0 g/dL Red Cell Distribution Width 12.9 11.0-15.5 % Platelet Count 222 130-400 K/uL Mean Platelet Volume 9.6 7.5-10.5 fL Immature Granulocyte % (Auto) 1.3 H 0-1 % Neutrophils (%) (Auto) 48.6 40.0-77.0 % Lymphocytes (%) (Auto) 40.1 21.0-51.0 % Monocytes (%) (Auto) 8.1 3.0-13.0 % Eosinophils (%) (Auto) 1.1 0.0-8.0 % Basophils (%) (Auto) 0.8 0.0-5.0 % Neutrophils # (Auto) 2.6 1.8-7.7 K/uL Lymphocytes # (Auto) 2.1 1.0-4.8 K/uL Monocytes # (Auto) 0.4 0.1-1.0 K/uL Eosinophils # (Auto) 0.06 0.00-0.70 K/uL Basophils # (Auto) 0.04 0.00-0.20 K/uL Absolute Immature Granulocyte (auto 0.07 0-1 K/uL Nucleated Red Blood Cells 0.0 0.0-0.19 % Sodium Level 141 136-145 mmol/L Potassium Level 3.5 3.5-5.1 mmol/L Chloride Level 105 101-111 mmol/L Carbon Dioxide Level 27 21-32 mmol/L Blood Urea Nitrogen 5 L 7-18 mg/dL Creatinine 0.5 0.5-1.0 mg/dL Glomerular Filtration Rate Calc 117 >90 mL/min Random Glucose 93 70-105 mg/dL Total Calcium 8.5 8.5-10.1 mg/dL Total Bilirubin 0.6 0.2-1.0 mg/dL Direct Bilirubin 0.3 0.0-0.3 mg/dL Aspartate Amino Transf (AST/SGOT) 145 H 10-37 U/L Alanine Aminotransferase (ALT/SGPT) 97 H 12-78 U/L Alkaline Phosphatase 331 H 50-136 U/L Total Protein 6.0 6.0-8.3 g/dL Albumin 2.6 L 3.5-5.0 g/dL Iron Level 52 50-170 mcg/dL Total Iron Binding Capacity 256 250-450 mcg/dL Percent Iron Saturation 20.3 L 22-44 % Segmented Neutrophils % 67 40-70 % Lymphocytes % (Manual) 24 22-44 % Monocytes % (Manual) 8 2-9 % Differential Comment MANUAL DIFFERENTIAL Reactive Lymphocytes 1 H 0-0 % White Cell Morphology Comment See comments Platelet Morphology Comment ADEQUATE Red Blood Cell Morphology NORMAL Lactic Acid Level 1.0 0.8-2.5 mmol/L C-Reactive Protein, Quantitative 92.50 H 0.5-3.0 mg/L Thyroid Stimulating Hormone (TSH) 1.22 0.36-3.74 uIU/mL Thyroxine (T4) 9.0 4.7-13.3 ug/dL Total Triiodothyronine 118 71-180 ng/dL Current Medications Medications (Trade) Dose Ordered Sig/Dionicio Route PRN Reason Start Time Stop Time Status Last Admin Dose Admin Acetaminophen (TYLenol 325MG TAB) 650 mg Q4H PRN PO TEMPERATURE GREATER THAN 100 02/24/25 16:00 03/26/25 15:59 03/01/25 02:59 650 MG Acetaminophen (TYLenol 650MG SUPPOSITORY) 650 mg Q6H PRN RC TEMPERATURE GREATER THAN 100.4 02/24/25 20:30 03/26/25 20:29 02/26/25 11:04 650 MG Ceftriaxone Sodium (ROCEphine 1G INJ) 1 gm BID IVPB 02/24/25 09:00 02/26/25 12:18 DC 02/26/25 08:11 1 GM Docusate Sodium (COLace 100MG CAP) 100 mg BID PO 02/28/25 12:00 03/30/25 11:59 03/02/25 08:28 100 MG Docusate Sodium (COLace 100MG CAP) 100 mg BID PRN PO CONSTIPATION 02/28/25 12:00 02/28/25 11:36 DC Doxycycline Hyclate 250 ml @ 125 mls/hr Q12H IV 02/26/25 12:30 03/08/25 12:29 03/01/25 23:46 125 MLS/HR Heparin Sodium (Porcine) (HEParin 5,000 UNIT VIAL) 5,000 unit Q12H SQ 02/28/25 12:00 03/30/25 11:59 03/01/25 12:29 5,000 UNIT Magnesium Sulfate 50 ml @ 0 mls/hr PROTOCOL PRN IV MAGNESIUM PROTOCOL 02/27/25 09:00 03/29/25 08:59 03/01/25 06:05 25 MLS/HR Metronidazole/ Sodium Chloride (flaGYL) 500 mg Q8H IV 02/24/25 16:00 02/26/25 12:18 DC 02/26/25 08:12 500 MG Morphine Sulfate (morPHINE 4MG SYG) 2 mg Q4H PRN IVP SEVERE PAIN (7-10) 02/24/25 06:00 03/01/25 08:59 DC 02/24/25 12:42 2 MG Ondansetron HCl (zoFRAN 4MG INJ) 4 mg Q6H PRN IV NAUSEA/VOMITING 02/24/25 16:00 03/26/25 15:59 Pantoprazole Sodium (PROTonix 40MG INJ) 40 mg BID IVP 02/27/25 21:00 02/27/25 19:11 DC Pantoprazole Sodium (PROTonix 40MG INJ) 40 mg DAILY IVP 02/24/25 09:00 02/27/25 19:03 DC 02/27/25 08:32 40 MG Pantoprazole Sodium (PROTonix 40MG TAB) 40 mg BID PO 02/27/25 21:00 02/27/25 19:12 DC Pantoprazole Sodium (PROTonix 40MG TAB) 40 mg BID PO 02/27/25 21:00 03/29/25 20:59 03/02/25 08:28 40 MG Piperacillin Sod/ Tazobactam Sod (Zosyn 3.375gm+NS 50ml) 3.375 gm Q8H IV 02/26/25 15:00 03/08/25 14:59 03/02/25 06:47 3.375 GM Potassium Chloride 100 ml @ 100 mls/hr AD PRN IV POTASSIUM PROTOCOL 02/27/25 09:00 02/27/25 08:46 DC Potassium Chloride 100 ml @ 100 mls/hr AD PRN IV POTASSIUM PROTOCOL 02/27/25 09:00 03/29/25 08:59 Potassium Chloride (K-Dur/Klor-Con 20meq) 20 meq AD PRN PO POTASSIUM PROTOCOL 02/27/25 09:00 03/29/25 08:59 03/01/25 12:28 20 MEQ Potassium Chloride (KCl 10% Elixir 20meq/15ml) 20 meq AD PRN PO POTASSIUM PROTOCOL 02/27/25 09:00 03/29/25 08:59 03/02/25 06:47 20 MEQ Sodium Chloride 1,000 ml @ 100 mls/hr Q10H IV 02/24/25 05:30 03/26/25 05:29 03/02/25 02:51 100 MLS/HR DIAGNOSTICS / RADIOLOGY: ECHO 2-D COMPLETE PATIENT: BALJIT LISA MR#: [id number] : 1980 SEX: F AGE: 44 LOCATION: 3CH ORDER 1541 STATUS: ADM IN REPORT#: [id number] SERVICE 0000 REASON: Persistent fever with unkown source of infection ORDERING PHYSICIAN: TAMAR WELLS MD PROCEDURE: ECHO CMP - ECHO 2-D COMPLETE APPROVED REPORT EXAM: Two-dimensional and M-mode echocardiogram with Doppler and color Doppler. INDICATION ICD: Persistent fever with unkown source of infection 2D Dimensions RVDd 3.4 cm LVEF(%) 66.4 (>50%) LVED Vol(simp.) 72.0 mL IVSd 0.6 (0.7-1.1cm) FS(%) 37 % LVES Vol(simp.) 27.0 mL LVDd 5.0 (3.8-5.6cm) LA (2D) 3.5 (1.6-4.0cm) LVEF(%, simp.) 63 % PWd 0.8 (0.7-1.1cm) Ao Root(2D) 2.9 (2.0-3.7cm) LA ESV INDEX (BP) 27.46 mL/m2 IVSs 0.9 cm LVOT diam 2.0 (1.8-2.4cm) LVDs 3.2 (2.5-4.0cm) PWs 1.1 cm Deformation Strain Apical 4 -19.2 % Apical 2 -20.6 % Apical 3 -16.6 % Global Strain -18.8 % M-Mode Dimensions EPSS 0.7 cm LA (MM) 3.4 (1.6-4.0cm) Ao Root(MM) 2.7 (2.0-3.7cm) Aortic Valve AoV Vmax 1.4 m/s Ao Peak GR 8.0 mmHg LVOT Vmax 1.0 m/s AoV VTI 0.3 m Ao Mean GR 4.5 mmHg LVOT VTI 0.20 m TERESA (VMAX) 2.25 cm2 TERESA (VTI) 2.2 cm2 Mitral Valve MV E Vmax 49.5 cm/s DECEL Time 146 ms MV A Vmax 69.2 cm/s P 1/2 T 33 ms E/A ratio 0.7 MVA (PHT) 6.7 cm2 TDI E/E' Medial 7.0 E/E' Lateral 5.3 Medial E' Peak V 7.11 cm/s Lateral E' Peak V 9.34 cm/s Pulmonary Valve PV Vmax 1.0 m/s PV VTI 0.17 m PV Mean GR 2.5 mmHg PV Peak GR 4.3 mmHg Tricuspid Valve TR Vmax 1.9 m/s RAP (EST) 3 mmHg RVSP 17.8 mmHg TR Peak GR 14.8 mmHg Left Ventricle The left ventricle is normal size. Normal left ventricular systolic wall motion. There is normal left ventricular wall thickness. Left ventricle systolic function is low-normal, estimated LVEF 50-55%. Grade 1 diastolic dysfunction. Right Ventricle The right ventricle is normal size. The right ventricular systolic function is normal. Atria The left atrium size is normal. The right atrium size is normal. Aortic Valve The aortic valve is normal in structure. Trace aortic regurgitation. No aortic valvular vegetation noted. There is no aortic valvular stenosis. Mitral Valve The mitral valve is normal in structure. Trace mitral regurgitation. There are no mitral valve vegetation noted. There is no mitral valve stenosis. Tricuspid Valve The tricuspid valve is normal in structure. Trace tricuspid regurgitation. RVSP is 15 mmHg. There is no tricuspid valve vegetation. Pulmonic Valve Pulmonic valve is not well visualized. Great Vessels The aortic root is normal in size. The IVC is normal in size and collapses >50% with inspiration. Pericardium There is no pericardial effusion. Other Information Quality : Adequate Conclusion The cardiac chambers are normal in size. There is normal left ventricular wall thickness. Normal left ventricular systolic wall motion. Left ventricle systolic function is low-normal, estimated LVEF 50-55%. Grade 1 diastolic dysfunction. Trace aortic regurgitation. Trace mitral regurgitation. Trace tricuspid regurgitation. No obvious vegetations were seen on any of the valves. PASP is 18 mmHg. There is no pericardial effusion. DICTATED BY: ILENE SANCHEZ MD DATE: 03/01/25 0939 ELECTRONICALLY SIGNED BY: ILENE SANCHEZ MD DATE: 03/02/2527 CT ABDOMEN/PELVIS W/CONTRAST PATIENT: BALJIT LISA MR#: [id number] : 1980 SEX: F AGE: 44 LOCATION: 3CH ORDER 1324 STATUS: ADM IN REPORT#: [id number] SERVICE 1322 REASON: Evaluation for intraabdmonial pathology, Persistent Fever ORDERING PHYSICIAN: TAMAR WELLS MD PROCEDURE: ABD PEL W - CT ABDOMEN/PELVIS W/CONTRAST EXAMINATION : CT Abdomen and Pelvis with contrast. CLINICAL HISTORY: Evaluation for intraabdmonial pathology, Persistent Fever/ Evaluation for intraabdmonial pathology. TECHNIQUE: Multiple contiguous axial CT images were obtained through the abdomen and pelvis following the administration of intravenous contrast. Coronal and sagittal reconstructions were also obtained. COMPARISON: Prior CT abdomen and pelvis on 02/24/2025 FINDINGS: Included chest reveals fibroatelectatic bands in the left lower lobe. The liver is normal in caliber with uniform decreased density. The gallbladder is surgically absent. The spleen, pancreas, adrenal glands and kidneys appear within normal limits. Bowel loops are normal in caliber without evidence of obstruction, ileus, or obvious bowel wall thickening. Normal appendix. Urinary bladder is well distended with mild wall thickening. Uterus is normal in caliber with stable right lateral wall uterine fibroid measuring 1.3 x 1.1 cm. Both the ovaries are normal. There is no ascites or lymphadenopathy. The opacified abdominal and pelvic vessels are patent. There are atheromatous wall calcification of the aorta and iliac arteries. No acute or suspicious osseous abnormality. There are multilevel mild degenerative spondylotic changes of the spine. IMPRESSION: Thickening of the urinary bladder which may be due to underdistention or cystitis. No bowel obstruction or inflammation. Normal appendix. Normal kidneys. No hydronephrosis. Hepatic steatosis. Status post cholecystectomy. Stable right lateral wall uterine fibroid. /[facility] DICTATED BY: JAQUAN CORNELL MD DATE: 03/02/251250 ELECTRONICALLY SIGNED BY: JAQUAN CORNELL MD DATE: 03/02/25 125 ASSESSMENT: Sepsis secondary to possible cholangitis, POA Elevated liver enzymes, POA Persistent fevers, POA Recent status post lap cholecystectomy POA Obesity POA Acute cystitis POA Constipation, POA Hyponatremia POA, resolved Hypochloremia POA, resolved Uterine fibroid per CT POA Mild fatty liver per CT POA PLAN: Sepsis secondary to possible cholangitis, POA Initial vitals temperature 99.9 F, pulse rate 104, respiratory rate 20, blood pressure 126/82 and WBC 3.5 with suspected cholangitis [fever+RUQ pain+elevated liver enzymes] suggest sepsis. WBC count today-5.3 Continue IV fluids @ 100ml/hr Infectious diseases was consulted for persistent fevers with unknown source and was started on Zosyn (day4) and Doxycycline (day4) 100mg, as per their recommendations MRCP results showed No biliary duct dilatation. No evidence of choledocholithiasis. Chest X-ray was unremarkable. Doppler US for bilateral lower limbs was unremarkable. ECHO results were negative for vegetations, with LVEF 50-55% and grade [address] abdomen w/contrast was ordered for suspected intraabdominal abscess as the source of infection. results show - Thickening of the urinary bladder which may be due to underdistention or cystitis, Hepatic steatosis, Stable uterine fibroid. Typhus panel was ordered, awaiting results. Urine and blood culture results are negative Continue prn meds for pain, fever, nausea, vomiting We will follow up on typhus panel results Elevated liver enzymes, POA, improving AST today was 145, alkaline phosphatase 331 Total bilirubin 0.6, direct bilirubin 0.3 Will Repeat LFTs tomorrow Acute cystitis POA Urine culture positive for leukocyte esterase indicating infection but the urine culture resulted in less than [id number] colony-forming units Will Continue IV antibiotics Continue Protonix 40 mg PO bid for Gastritis as recommended by GI Start heparin 5000 SQ q.12h for DVT prophylaxis Start docusate 100mg BID for constipation Monitor electrolytes and replace them according to the protocol ATTESTATION BY PHYSICIAN I have seen and examined the patient. I reviewed the documentation, medical decision making, and treatment plan as noted by the resident provider above. I agree with the findings and plan of care. JUNIOR HAAS MD, SHAJI MD Mar 02, 2025 12:04
--- NOTE | 2025-03-02 13:32 | PN ---
This is a case of a 44-year-old female with no pertinent past medical history who recently underwent laparoscopic cholecystectomy at [facility] on January 26 2025, who presented to the ED with 3 day history of intermittent fever, chills, intermittent squeezing type, severe right-sided abdominal pain radiating to the rectum. Initial vitals temperature 102.6 F, pulse rate 104, respiratory rate 20, blood pressure 126/82 meeting the SIRS criteria. Initial labs WBC 3.5, hemoglobin 12, total bilirubin 1.2, AST 80, ALT 150, alkaline phosphatase 316. Urinalysis positive for leukocyte esterase, ketones, RBC and WBC. Influenza type a and B, SARS COVID, group a strep test results are negative. CT abdomen and pelvis with contrast result revealed uterine fibroid of 1.3cm, mild fatty liver, mild cystitis, CBD 4mm and a component of mild constipation is present in the colon. Abdominal ultrasound revealed no acute process, fatty liver and post cholecystectomy changes. GI was consulted. She is admitted for further workup and treatment. Patient continues to have persistent fevers with temperature recordings of 100, 100.2, 101.7. Patient states that her abdominal pain has significantly improved. She denies headache, nausea, vomiting, chest pain, palpitations, difficulty breathing, diarrhea, or rash. Remarkable labs: WBC 5.8, Hgb 10.6, Hct 30.7, platelets 203, sodium 140, potassium 3.3, BUN 7, creatinine 0.7, iron 52, TIBC 256, percent saturation 20.3. Pending results from flow cytometry and direct diana. ALLERGIES: Coded Allergies: No Known Drug Allergies (Verified Allergy, 11/15/11) REVIEW OF SYSTEMS CONSTITUTIONAL: FEVER HEENT: No JAUNDICE, No SORE THROAT, No SINUS PRESSURE, No VISION CHANGES RESPIRATORY: No COUGH, No CHEST PAIN, No SHORTNESS OF BREATH, No HEMOPTYSIS CARDIOVASCULAR: No PALPATIONS, No DYSPNEA ON EXERTION, No SYNCOPE GASTROINTESTINAL: No NAUSEA, No VOMITING, No DIARRHEA, No DYSPHAGIA, No CONSTIPATION, No ABDOMINAL PAIN, No HEMATEMESIS, No HEMATOCHEZIA, No MELENA GENITOURINARY: No DYSURIA, No HEMATURIA HEMATOLOGIC/LYMPHATIC: No EASY BRUISING, No CERVICAL ADENOPATHY, No AXILLARY ADENOPATHY, No INGUINAL ADENOPATHY MUSCULOSKELETAL: NORMAL RANGE OF MOTION SKIN/BREASTS: No BREAST MASS, No NIPPLE INVERSION, No RASH NEUROLOGICAL: No WEAKNESS-EXTREMETIES, No DIPLOPIA, No NUMBNESS, No TINGLING PSYCHOLOGICAL: No SUICIDAL IDEATION PHYSICAL EXAM VITALS: Vital Signs Date Time Temp Pulse Resp B/P (MAP) Pulse Ox O2 Delivery O2 Flow Rate FiO2 03/01/25 10:57 97.7 82 20 101/63 100 Room Air 03/01/25 08:00 0 21 GENERAL: ALERT, ORIENTED, APPEARS-NO ACUTE DISTRESS EYES: PUPILS EQUAL/REACTIVE ENT/NECK: OROPHARYNX IS CLEAR, NECK SUPPLE W/O MASSES RESPIRATORY: LUNGS CLEAR-AUSC/PERCUS CARDIOVASCULAR: REGULAR RATE GASTROINTESTINAL: ABDOMEN IS SOFT HEMATOLOGY/LYMPHATIC: No CERVICAL ADENOPATHY, No SUPRACLAVICULR ADENOPATHY, No AXILLARY ADENOPATHY, No INGUINAL ADENOPATHY MUSCULOSKELETAL: No CYANOSIS-EXTREMETIES, No CLUBBING, No EDEMA SKIN/BREASTS: No MASSES, No RASH, No HIVES NEUROLOGICAL: No GROSSLY INTACT PSYCHOLOGICAL: MINI MENTAL ASSMT INTACT Assessment 1. Anemia 2. Persistent fever 3. Elevated liver enzyme Plan 1. Peripheral blood smear showed possibility of spherocytosis. Direct Diana was ordered. 2. There is rouleaux phenomena. We will ask for SPEP, UPEP and free light chain. If there is monoclonal protein we will do a bone marrow biopsy. 3. Continue antibiotic treatment as per infectious disease specialist Vitals/Labs Vital Signs Date Time Temp Pulse Resp B/P (MAP) Pulse Ox O2 Delivery O2 Flow Rate FiO2 03/02/25 11:05 98.1 83 20 87/57 100 Room Air 03/02/25 08:32 0 21 Laboratory Tests 03/02/25 05:17 Medications Current Medications Sodium Chloride 1,000 ml @ 0 mls/hr ONCE ONCE IV Last administered on 02/23/25at 23:02; Start 02/23/25 at 23:00; Stop 02/23/25 at 23:01; Status DC Iohexol 35,000 mg STK-MED ONCE IV; Start 02/24/25 at 01:29; Stop 02/24/25 at 01:30; Status DC Morphine Sulfate 2 mg Q4H PRN IVP Last administered on 02/24/25at 12:42; Start 02/24/25 at 06:00; Stop 03/01/25 at 08:59; Status DC Sodium Chloride 1,000 ml @ 100 mls/hr Q10H IV Last administered on 03/02/25at 02:51; Start 02/24/25 at 05:30; Stop 03/26/25 at 05:29 Ceftriaxone Sodium 1 gm BID IVPB Last administered on 02/26/25at 08:11; Start 02/24/25 at 09:00; Stop 02/26/25 at 12:18; Status DC Pantoprazole Sodium 40 mg DAILY IVP Last administered on 02/27/25at 08:32; Start 02/24/25 at 09:00; Stop 02/27/25 at 19:03; Status DC Metronidazole/ Sodium Chloride 500 mg Q8H IV Last administered on 02/26/25at 08:12; Start 02/24/25 at 16:00; Stop 02/26/25 at 12:18; Status DC Acetaminophen 650 mg Q4H PRN PO Last administered on 03/01/25at 02:59; Start 02/24/25 at 16:00; Stop 03/26/25 at 15:59 Ondansetron HCl 4 mg Q6H PRN IV; Start 02/24/25 at 16:00; Stop 03/26/25 at 15:59 Acetaminophen 650 mg Q6H PRN RC Last administered on 02/26/25at 11:04; Start 02/24/25 at 20:30; Stop 03/26/25 at 20:29 Acetaminophen 650 mg STK-MED ONCE RC; Start 02/24/25 at 20:38; Stop 02/24/25 at 20:38; Status DC Doxycycline Hyclate 250 ml @ 125 mls/hr Q12H IV Last administered on 03/02/25at 12:59; Start 02/26/25 at 12:30; Stop 03/08/25 at 12:29 Piperacillin Sod/ Tazobactam Sod 3.375 gm Q8H IV Last administered on 03/02/25at 06:47; Start 02/26/25 at 15:00; Stop 03/08/25 at 14:59 Propofol 200 mg STK-MED ONCE IV; Start 02/26/25 at 12:48; Stop 02/26/25 at 12:49; Status DC Lidocaine HCl 100 mg STK-MED ONCE .ROUTE; Start 02/26/25 at 12:49; Stop 02/26/25 at 12:49; Status DC Ketamine HCl 50 mg STK-MED ONCE .ROUTE; Start 02/26/25 at 12:49; Stop 02/26/25 at 12:49; Status DC Midazolam HCl 2 mg STK-MED ONCE .ROUTE; Start 02/26/25 at 12:49; Stop 02/26/25 at 12:49; Status DC Potassium Chloride 100 ml @ 100 mls/hr AD PRN IV; Start 02/27/25 at 09:00; Stop 03/29/25 at 08:59 Potassium Chloride 100 ml @ 100 mls/hr AD PRN IV; Start 02/27/25 at 09:00; Stop 02/27/25 at 08:46; Status DC Potassium Chloride 20 meq AD PRN PO Last administered on 03/02/25at 06:47; Start 02/27/25 at 09:00; Stop 03/29/25 at 08:59 Potassium Chloride 20 meq AD PRN PO Last administered on 03/02/25at 13:00; Start 02/27/25 at 09:00; Stop 03/29/25 at 08:59 Magnesium Sulfate 50 ml @ 0 mls/hr PROTOCOL PRN IV Last administered on 03/01/25at 06:05; Start 02/27/25 at 09:00; Stop 03/29/25 at 08:59 Pantoprazole Sodium 40 mg BID IVP; Start 02/27/25 at 21:00; Stop 02/27/25 at 19:11; Status DC Pantoprazole Sodium 40 mg BID PO; Start 02/27/25 at 21:00; Stop 02/27/25 at 19:12; Status DC Pantoprazole Sodium 40 mg BID PO Last administered on 03/02/25at 08:28; Start 02/27/25 at 21:00; Stop 03/29/25 at 20:59 Heparin Sodium (Porcine) 5,000 unit Q12H SQ Last administered on 03/02/25at 13:07; Start 02/28/25 at 12:00; Stop 03/30/25 at 11:59 Docusate Sodium 100 mg BID PRN PO; Start 02/28/25 at 12:00; Stop 02/28/25 at 11:36; Status DC Docusate Sodium 100 mg BID PO Last administered on 03/02/25at 08:28; Start 02/28/25 at 12:00; Stop 03/30/25 at 11:59 Iohexol 75 ml STK-MED ONCE IV; Start 03/01/25 at 16:17; Stop 03/01/25 at 16:18; Status DC DELICIA ART MD Mar 02, 2025 13:32
--- NOTE | 2025-03-02 22:45 | PN ---
INFECTIOUS DISEASE PROGRESS NOTE Date of Service: Mar 02, 2025 SUBJECTIVE: This is a 44-year-old female patient who was seen and examined at bedside in room 313. Patient is awake, alert and oriented x3. Patient is sitting up on the bedside chair and ambulates without difficulty. 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 urine collection. Patient had a low-grade fever of 99.7 last night but remains afebrile this morning, temperature is 98.2. No growth reported yet on the repeat blood cultures in 24 hours. Continues on Zosyn and doxycycline IV. PHYSICAL EXAM EYES: Anicteric. Pupils equal and reactive. HENT: No oral thrush seen, moist Oral mucosa NECK: Supple, no JVD or thyromegaly. LUNGS: Good air entry. No rales, no rhonchi. CARDIOVASCULAR: S1, S2 regular. No murmur heard. ABDOMEN: Soft, non tender, bowel sounds present, no organomegaly CENTRAL NERVOUS SYSTEM: Awake, alert, oriented x 3. No focal deficits. SKIN: No rashes, no swelling. LYMPHATICS: No peripheral lymphadenopathy MUSCULOSKELETAL: No joint swelling, erythema or tenderness. EXTREMITIES: No cyanosis or clubbing BACK: No deformity, no pressure ulcer. GENITOURINARY: No dysuria or hematuria Vital Sign (Last 12 Hours) 03/02/25 03/02/25 03/02/25 11:05 16:01 20:00 Temp 98.1 98.2 98.2 Pulse 83 82 86 Resp 20 20 20 B/P (MAP) 87/57 101/69 94/61 Pulse Ox 100 100 96 O2 Delivery Room Air Room Air Room Air Intake & Output (last 24hrs) 03/01/25 03/01/25 03/02/25 15:00 23:00 07:00 Intake Total 400.0 ml 1100 ml Balance 400.0 ml 1100 ml LABS: Laboratory: Test 03/02/25 05:17 03/01/25 12:30 03/01/25 04:25 Range/Units White Blood Count 5.3 4.8-10.8 K/uL Red Blood Count 3.57 L 4.00-5.50 MIL/uL Hemoglobin 10.6 L 12.0-16.0 g/dL Hematocrit 31.3 L 36-48 % Mean Corpuscular Volume 87.7 79-99 fL Mean Corpuscular Hemoglobin 29.7 27.0-33.0 pg Mean Corpuscular Hemoglobin Concent 33.9 32.0-36.0 g/dL Red Cell Distribution Width 12.9 11.0-15.5 % Platelet Count 222 130-400 K/uL Mean Platelet Volume 9.6 7.5-10.5 fL Immature Granulocyte % (Auto) 1.3 H 0-1 % Neutrophils (%) (Auto) 48.6 40.0-77.0 % Lymphocytes (%) (Auto) 40.1 21.0-51.0 % Monocytes (%) (Auto) 8.1 3.0-13.0 % Eosinophils (%) (Auto) 1.1 0.0-8.0 % Basophils (%) (Auto) 0.8 0.0-5.0 % Neutrophils # (Auto) 2.6 1.8-7.7 K/uL Lymphocytes # (Auto) 2.1 1.0-4.8 K/uL Monocytes # (Auto) 0.4 0.1-1.0 K/uL Eosinophils # (Auto) 0.06 0.00-0.70 K/uL Basophils # (Auto) 0.04 0.00-0.20 K/uL Absolute Immature Granulocyte (auto 0.07 0-1 K/uL Nucleated Red Blood Cells 0.0 0.0-0.19 % Sodium Level 141 136-145 mmol/L Potassium Level 3.5 3.5-5.1 mmol/L Chloride Level 105 101-111 mmol/L Carbon Dioxide Level 27 21-32 mmol/L Blood Urea Nitrogen 5 L 7-18 mg/dL Creatinine 0.5 0.5-1.0 mg/dL Glomerular Filtration Rate Calc 117 >90 mL/min Random Glucose 93 70-105 mg/dL Total Calcium 8.5 8.5-10.1 mg/dL Total Bilirubin 0.6 0.2-1.0 mg/dL Direct Bilirubin 0.3 0.0-0.3 mg/dL Aspartate Amino Transf (AST/SGOT) 145 H 10-37 U/L Alanine Aminotransferase (ALT/SGPT) 97 H 12-78 U/L Alkaline Phosphatase 331 H 50-136 U/L Total Protein 6.0 6.0-8.3 g/dL Albumin 2.6 L 3.5-5.0 g/dL Iron Level 52 50-170 mcg/dL Total Iron Binding Capacity 256 250-450 mcg/dL Percent Iron Saturation 20.3 L 22-44 % Segmented Neutrophils % 67 40-70 % Lymphocytes % (Manual) 24 22-44 % Monocytes % (Manual) 8 2-9 % Differential Comment MANUAL DIFFERENTIAL Reactive Lymphocytes 1 H 0-0 % White Cell Morphology Comment See comments Platelet Morphology Comment ADEQUATE Red Blood Cell Morphology NORMAL Lactic Acid Level 1.0 0.8-2.5 mmol/L C-Reactive Protein, Quantitative 92.50 H 0.5-3.0 mg/L Thyroid Stimulating Hormone (TSH) 1.22 0.36-3.74 uIU/mL Thyroxine (T4) 9.0 4.7-13.3 ug/dL Total Triiodothyronine 118 71-180 ng/dL ASSESSMENT: Persistent fevers. 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 Leukocytosis. Abdominal pain, resolving. Elevated liver enzymes. Thrombocytopenia. Recent laparoscopic cholecystectomy last month. PLAN: Continue Zosyn IV. Continue doxycycline. Continue pain management. We will follow up on the repeat blood cultures. Continue GI prophylaxis. Hematology has evaluated patient. This case was reviewed and discussed with my supervising physician Dr. Chairez and the above assessment and plan was formulated and agreed upon. ATTESTATION BY PHYSICIAN I have seen and examined the patient. I reviewed the documentation, medical decision making, and treatment plan as noted by the mid-level provider above. I agree with the findings and plan of care. JAMES CHAIREZ MD, [facility] Mar 02, 2025 22:45
[2025-03-03 03:41] VITALS: BP 97/65; PULSE 72; RESP 20; TEMP 97.9
[2025-03-03 05:21] LABS: IMMATURE GRANULOCYTE ABSOLUTE 0.16 K/uL (0-1); NUCLEATED RED BLOOD CELLS 0.0 % (0.0-0.19); PLATELET COUNT (AUTO) 259 K/uL (130-400); RED BLOOD CELL COUNT(AUTO) 3.49 MIL/uL (4.00-5.50); RED CELL DISTRIBUTION WIDTH 13.2 % (11.0-15.5); WHITE BLOOD COUNT (AUTO) 5.8 K/uL (4.8-10.8)
[2025-03-03 05:37] LABS: ASPARTATE AMINOTRANSFERASE 209.0 U/L (10-37); CREATININE 0.4 mg/dL (0.5-1.0); GLOMERULAR FILTR. RATE CALC 124.0 mL/min (>90); GLUCOSE,RANDOM 102.0 mg/dL (70-105); SODIUM SERUM 141.0 mmol/L (136-145); TOTAL PROTEIN, SERUM 6.2 g/dL (6.0-8.3); UREA NITROGEN, BLOOD 5.0 mg/dL (7-18)
[2025-03-03 08:00] VITALS: BP 95/55; PULSE 74; RESP 16; TEMP 98
[2025-03-03 08:59] LABS: LDL DIRECT 125 mg/dL (0-99)
[2025-03-03 09:50] VITALS: O2SAT 96
[2025-03-03 12:00] VITALS: BP 94/52; PULSE 68; RESP 16; TEMP 98.3
--- NOTE | 2025-03-03 12:20 | PN ---
[facility] PROGRESS NOTE Date of Service: Mar 03, 2025 Time of Service: 12:12 SUBJECTIVE: This is a case of a 44-year-old female with no pertinent past medical history who recently underwent laparoscopic cholecystectomy at [facility] on January 26 2025, who presented to the ED with 3 day history of intermittent fever, chills, intermittent squeezing type, severe right-sided abdominal pain radiating to the rectum. Initial vitals temperature 102.6 F, pulse rate 104, respiratory rate 20, blood pressure 126/82 meeting the SIRS criteria. Initial labs WBC 3.5, hemoglobin 12, total bilirubin 1.2, AST 80, ALT 150, alkaline phosphatase 316. Urinalysis positive for leukocyte esterase, ketones, RBC and WBC. Influenza type a and B, SARS COVID, group a strep test results are negative. CT abdomen and pelvis with contrast result revealed uterine fibroid of 1.3cm, mild fatty liver, mild cystitis, CBD 4mm and a component of mild constipation is present in the colon. Abdominal ultrasound revealed no acute process, fatty liver and post cholecystectomy changes. GI was consulted. She is admitted for further workup and treatment. 02/24/2025: Patient is seen and examined at the bedside today. Vitals temperature 98.6, blood pressure 112/65, respiratory rate 20, pulse rate 82, SpO2 greater than 95% on room air. No acute events last night. She complains of right upper quadrant a nd epigastric abdominal pain, nausea. She denies headache, chest pain, palpitations, difficulty in breathing, diarrhea. Labs WBC 4, hemoglobin 12, total bilirubin 1.1, direct bilirubin 0.5, AST improved from 80-67, ALT improved from 150-127, alkaline phosphatase 315. 02/25/2025: Patient is seen and examined at the bedside today in ED-04, her was present in the room. Patient reports feeling better today and her pain as gotten better today. Patient complains of fever every 4 hours. She denies headache, chest pain, palpitations, difficulty in breathing, diarrhea. Labs WBC 4, hemoglobin 11.9, total bilirubin 1.1, direct bilirubin 0.5, AST improved from 67>50, ALT improved from 127>98, alkaline phosphatase 315>333. She underwent MRC P which showed No biliary duct dilatation. No evidence of choledocholithiasis. 02/26/2025: Patient is seen and examined at bedside today in room 313, her was present in the room. Patient still complains of persistent fever. Patient reports her pain has subsided. She denies headache, chest pain, palpitations, difficulty in breathing, diarrhea. Patient had concerns regarding her source of infection for the fevers. Her MRCP results was unremarkable, but cultures, urine cultures were negative. Patient is scheduled for EGD today. Labs WBC 3.9, hemoglobin 11.4, total bilirubin 0.5, direct bilirubin 0.2, AST 50>74, ALT 98>98, alkaline phosphatase 333>300. 02/27/25: Patient is seen and examined at bedside today in room 313, her was present in the room. Patient is still keeps having episodic spells of fever, her overnight fever went as high as 102.9. It is being controlled on acetaminophen and ice packs. Patient EGD showed just gastritis for which GI asked her to be started on pantoprazole 40 mg p.o. b.i.d. they want her to follow up in 1 week after discharge. Still waiting on her typhus serology. Her liver function tests are improving. 02/28/2025 Patient is seen and examined at the bedside. She is noted to have persistent fevers with temperature recordings of 100, 100.2 and 101.7 F overnight and today morning. Pulse rate in 80s to 100s, blood pressure in 90s/60s. No acute events last night. She states that she has no complaints other than her fevers. She mentions that her abdominal pain has significantly improved. She denies headaches, nausea, vomiting, chest pain, palpitations, difficulty in breathing, diarrhea. Labs WBC 6.2, hemoglobin 11.4, potassium 3.3, AST improved from 59-49, Alkaline phosphatase 334. Pending typhus panel results. 03/01/25: Patient was seen and examined at bedside today in room 313. Patient reports persistent fever but occur less frequently (every 7 hours) compared to prior days. She states that she has no complaints other than her fevers. She mentions that her abdominal pain has significantly improved. She denies headaches, nausea, vomiting, chest pain, palpitations, difficulty in breathing, diarrhea. Labs WBC 5.8, hemoglobin 10.6, potassium 3.3, AST today 62, Alkaline phosphatase 326. Pending typhus panel results. 03/02/2025: Patient was seen and examined at bedside today in room 313. Patient reports feeling a lot better today and she didn't have any fever for the last 12 hours and her Tmax was 99F. Patient report she is been ambulating well now and her appetite is improving. Patient denies abdominal pain. She denies headaches, nausea, vomiting, chest pain, palpitations, difficulty in breathing, diarrhea. Labs WBC 5.3, hemoglobin 10.6, potassium 3.5, AST today 145, Alkaline phosphatase 331. Pending typhus panel results. ECHO findings were unremarkable without any evidence of vegetations. 03/03/2025: Patient was seen and examined at bedside today in room 313. Patient reports feeling better. She didn't complain of fever and has been off Tylenol. her Tmax in the last 24 hours was 98.1. Patient denies abdominal pain. She denies headaches, nausea, vomiting, chest pain, palpitations, difficulty in breathing, diarrhea. Labs WBC 5.8, hemoglobin 10.4, potassium 4.0, AST today 209, Alkaline phosphatase 415. Pending typhus panel results. CT abdomen w contrast was negative for suspected pelvic abscess, impression show, mild fatty liver, stable uterine fibroid, bladder wall inflammation suggestive of cystitis. REVIEW OF SYSTEMS CONSTITUTIONAL: Complaints of fever every 4 hours, denies night sweats. No unintentional weight loss reported. NEUROLOGICAL: Denies headache, motor weakness, sensory deficit, vertigo/spinning sensation, gait abnormalities, or tremors. ENT: No hearing loss, otalgia, otorrhea, rhinitis, rhinorrhea, hoarseness, or sore throat. CARDIOVASCULAR: Denies any exertional angina, dyspnea on exertion, orthopnea, paroxysmal nocturnal dyspnea, palpitations, life-threatening arrhythmias, claudication. PULMONARY: Denies any shortness of breath, cough, phlegm/sputum, hemoptysis, pleuritic chest pain. SLEEP: Denies morning headaches, daytime somnolence or napping GASTROINTESTINAL: Improving Right upper quadrant and epigastric abdominal pain. GENITOURINARY: Denies frequency, urgency, nocturia, hematuria or incontinence HEMATOLOGIC: Denies thrombophilia/previous clots, or coagulopathy/bleeding disorders. ONCOLOGIC: Denies personal history of malignancy. DERMATOLOGIC: Denies rashes or pruritus. PSYCHIATRIC: Denies any suicidal or homicidal ideation. Denies hallucinations. PHYSICAL EXAM GENERAL APPEARANCE: The patient is awake, alert, and oriented, in no acute cardiopulmonary distress. NEUROLOGICAL: Cranial nerves II-XII grossly intact. Motor is 5/5 in bilateral upper and lower extremities proximal to distal. No sensory deficits. HEENT: Face is symmetric. Pupils are equal and reactive. Extraocular movements are intact. NECK: Supple. No JVD CHEST: Normal chest expansion. No Telemetry. LUNGS: Absence of any rales, rhonchi or any wheezing. CARDIOVASCULAR: Regular. S1 and S2 normal. No appreciable rubs, murmurs or gallops. ABDOMEN: Soft and nondistended. There is no rebound, voluntary guarding, or rigidity. : Deferred. No Alcaraz. EXTREMITIES: Non-edematous and not cyanotic. No clubbing. Good capillary refill. SKIN: No skin breakdown. Vital Signs (last 8hr) Date Time Temp Pulse Resp B/P (MAP) Pulse Ox O2 Delivery O2 Flow Rate FiO2 03/03/25 08:00 98.1 74 16 95/55 96 Room Air LABS: Laboratory: Test 03/03/25 05:09 03/01/25 12:30 Range/Units White Blood Count 5.8 4.8-10.8 K/uL Red Blood Count 3.49 L 4.00-5.50 MIL/uL Hemoglobin 10.4 L 12.0-16.0 g/dL Hematocrit 30.2 L 36-48 % Mean Corpuscular Volume 86.5 79-99 fL Mean Corpuscular Hemoglobin 29.8 27.0-33.0 pg Mean Corpuscular Hemoglobin Concent 34.4 32.0-36.0 g/dL Red Cell Distribution Width 13.2 11.0-15.5 % Platelet Count 259 130-400 K/uL Mean Platelet Volume 9.6 7.5-10.5 fL Immature Granulocyte % (Auto) 2.8 H 0-1 % Neutrophils (%) (Auto) 46.2 40.0-77.0 % Lymphocytes (%) (Auto) 39.7 21.0-51.0 % Monocytes (%) (Auto) 9.4 3.0-13.0 % Eosinophils (%) (Auto) 1.4 0.0-8.0 % Basophils (%) (Auto) 0.5 0.0-5.0 % Neutrophils # (Auto) 2.7 1.8-7.7 K/uL Lymphocytes # (Auto) 2.3 1.0-4.8 K/uL Monocytes # (Auto) 0.5 0.1-1.0 K/uL Eosinophils # (Auto) 0.08 0.00-0.70 K/uL Basophils # (Auto) 0.03 0.00-0.20 K/uL Absolute Immature Granulocyte (auto 0.16 0-1 K/uL Nucleated Red Blood Cells 0.0 0.0-0.19 % Sodium Level 141 136-145 mmol/L Potassium Level 4.0 3.5-5.1 mmol/L Chloride Level 104 101-111 mmol/L Carbon Dioxide Level 29 21-32 mmol/L Blood Urea Nitrogen 5 L 7-18 mg/dL Creatinine 0.4 L 0.5-1.0 mg/dL Glomerular Filtration Rate Calc 124 >90 mL/min Random Glucose 102 70-105 mg/dL Hemoglobin A1c 5.8 4.0-6.0 % Estimated Average Glucose (eAG) 120 70-126 mg/dL Total Calcium 8.9 8.5-10.1 mg/dL Total Bilirubin 0.7 0.2-1.0 mg/dL Direct Bilirubin 0.3 0.0-0.3 mg/dL Aspartate Amino Transf (AST/SGOT) 209 H 10-37 U/L Alanine Aminotransferase (ALT/SGPT) 162 #H 12-78 U/L Alkaline Phosphatase 415 #H 50-136 U/L C-Reactive Protein, Quantitative 47.50 H 0.5-3.0 mg/L Total Protein 6.2 6.0-8.3 g/dL Albumin 2.7 L 3.5-5.0 g/dL Triglycerides Level 136 30-200 mg/dL Cholesterol Level 189 <200 mg/dL LDL Cholesterol 125 H 0-99 mg/dL HDL Cholesterol 33 L 35-85 mg/dL Iron Level 52 50-170 mcg/dL Total Iron Binding Capacity 256 250-450 mcg/dL Percent Iron Saturation 20.3 L 22-44 % Current Medications Medications (Trade) Dose Ordered Sig/Dionicio Route PRN Reason Start Time Stop Time Status Last Admin Dose Admin Acetaminophen (TYLenol 325MG TAB) 650 mg Q4H PRN PO TEMPERATURE GREATER THAN 100 02/24/25 16:00 03/26/25 15:59 03/01/25 02:59 650 MG Acetaminophen (TYLenol 650MG SUPPOSITORY) 650 mg Q6H PRN RC TEMPERATURE GREATER THAN 100.4 02/24/25 20:30 03/26/25 20:29 02/26/25 11:04 650 MG Ceftriaxone Sodium (ROCEphine 1G INJ) 1 gm BID IVPB 02/24/25 09:00 02/26/25 12:18 DC 02/26/25 08:11 1 GM Docusate Sodium (COLace 100MG CAP) 100 mg BID PO 02/28/25 12:00 03/30/25 11:59 03/03/25 09:50 100 MG Docusate Sodium (COLace 100MG CAP) 100 mg BID PRN PO CONSTIPATION 02/28/25 12:00 02/28/25 11:36 DC Doxycycline Hyclate 250 ml @ 125 mls/hr Q12H IV 02/26/25 12:30 03/08/25 12:29 03/02/25 23:36 125 MLS/HR Heparin Sodium (Porcine) (HEParin 5,000 UNIT VIAL) 5,000 unit Q12H SQ 02/28/25 12:00 03/30/25 11:59 03/02/25 23:37 5,000 UNIT Magnesium Sulfate 50 ml @ 0 mls/hr PROTOCOL PRN IV MAGNESIUM PROTOCOL 02/27/25 09:00 03/29/25 08:59 03/01/25 06:05 25 MLS/HR Metronidazole/ Sodium Chloride (flaGYL) 500 mg Q8H IV 02/24/25 16:00 02/26/25 12:18 DC 02/26/25 08:12 500 MG Morphine Sulfate (morPHINE 4MG SYG) 2 mg Q4H PRN IVP SEVERE PAIN (7-10) 02/24/25 06:00 03/01/25 08:59 DC 02/24/25 12:42 2 MG Ondansetron HCl (zoFRAN 4MG INJ) 4 mg Q6H PRN IV NAUSEA/VOMITING 02/24/25 16:00 03/26/25 15:59 Pantoprazole Sodium (PROTonix 40MG INJ) 40 mg BID IVP 02/27/25 21:00 02/27/25 19:11 DC Pantoprazole Sodium (PROTonix 40MG INJ) 40 mg DAILY IVP 02/24/25 09:00 02/27/25 19:03 DC 02/27/25 08:32 40 MG Pantoprazole Sodium (PROTonix 40MG TAB) 40 mg BID PO 02/27/25 21:00 02/27/25 19:12 DC Pantoprazole Sodium (PROTonix 40MG TAB) 40 mg BID PO 02/27/25 21:00 03/29/25 20:59 03/03/25 09:50 40 MG Piperacillin Sod/ Tazobactam Sod (Zosyn 3.375gm+NS 50ml) 3.375 gm Q8H IV 02/26/25 15:00 03/08/25 14:59 03/03/25 09:49 3.375 GM Potassium Chloride 100 ml @ 100 mls/hr AD PRN IV POTASSIUM PROTOCOL 02/27/25 09:00 02/27/25 08:46 DC Potassium Chloride 100 ml @ 100 mls/hr AD PRN IV POTASSIUM PROTOCOL 02/27/25 09:00 03/29/25 08:59 Potassium Chloride (K-Dur/Klor-Con 20meq) 20 meq AD PRN PO POTASSIUM PROTOCOL 02/27/25 09:00 03/29/25 08:59 03/02/25 13:00 20 MEQ Potassium Chloride (KCl 10% Elixir 20meq/15ml) 20 meq AD PRN PO POTASSIUM PROTOCOL 02/27/25 09:00 03/29/25 08:59 03/02/25 06:47 20 MEQ Sodium Chloride 1,000 ml @ 100 mls/hr Q10H IV 02/24/25 05:30 03/26/25 05:29 03/03/25 06:20 100 MLS/HR DIAGNOSTICS / RADIOLOGY: CT ABDOMEN/PELVIS W/CONTRAST PATIENT: BALJIT LISA MR#: [id number] : 1980 SEX: F AGE: 44 LOCATION: [facility] ORDER 23 STATUS: ADM IN REPORT#: [id number] SERVICE [id number] REASON: Evaluation for intraabdmonial pathology, Persistent Fever ORDERING PHYSICIAN: TAMAR WELLS MD PROCEDURE: ABD PEL W - CT ABDOMEN/PELVIS W/CONTRAST EXAMINATION : CT Abdomen and Pelvis with contrast. CLINICAL HISTORY: Evaluation for intraabdmonial pathology, Persistent Fever/ Evaluation for intraabdmonial pathology. TECHNIQUE: Multiple contiguous axial CT images were obtained through the abdomen and pelvis following the administration of intravenous contrast. Coronal and sagittal reconstructions were also obtained. COMPARISON: Prior CT abdomen and pelvis on 02/24/2025 FINDINGS: Included chest reveals fibroatelectatic bands in the left lower lobe. The liver is normal in caliber with uniform decreased density. The gallbladder is surgically absent. The spleen, pancreas, adrenal glands and kidneys appear within normal limits. Bowel loops are normal in caliber without evidence of obstruction, ileus, or obvious bowel wall thickening. Normal appendix. Urinary bladder is well distended with mild wall thickening. Uterus is normal in caliber with stable right lateral wall uterine fibroid measuring 1.3 x 1.1 cm. Both the ovaries are normal. There is no ascites or lymphadenopathy. The opacified abdominal and pelvic vessels are patent. There are atheromatous wall calcification of the aorta and iliac arteries. No acute or suspicious osseous abnormality. There are multilevel mild degenerative spondylotic changes of the spine. IMPRESSION: Thickening of the urinary bladder which may be due to underdistention or cystitis. No bowel obstruction or inflammation. Normal appendix. Normal kidneys. No hydronephrosis. Hepatic steatosis. Status post cholecystectomy. Stable right lateral wall uterine fibroid. /Strang DICTATED BY: JAQUAN CORNELL MD DATE: 03/02/25 125 ELECTRONICALLY SIGNED BY: JAQUAN CORNELL MD DATE: 03/02/25 125 ASSESSMENT: Sepsis secondary to possible cholangitis, POA Elevated liver enzymes, POA Persistent fevers, POA Recent status post lap cholecystectomy POA Obesity POA Acute cystitis POA Constipation, POA Hyponatremia POA, resolved Hypochloremia POA, resolved Uterine fibroid per CT POA Mild fatty liver per CT POA PLAN: Sepsis secondary to possible cholangitis, POA Initial vitals temperature 99.9 F, pulse rate 104, respiratory rate 20, blood pressure 126/82 and WBC 3.5 with suspected cholangitis [fever+RUQ pain+elevated liver enzymes] suggest sepsis. WBC count today-5.3 Continue IV fluids @ 100ml/hr Infectious diseases was consulted for persistent fevers with unknown source and was started on Zosyn (day5) and Doxycycline (day5) 100mg, as per their recommendations MRCP results showed No biliary duct dilatation. No evidence of choledoch olithiasis. Chest X-ray was unremarkable. Doppler US for bilateral lower limbs was unremarkable. ECHO results were negative for vegetations, with LVEF 50-55% and grade [address] abdomen w/contrast was ordered for suspected intraabdominal abscess as the source of infection. results show - Thickening of the urinary bladder which may be due to underdistention or cystitis, Hepatic steatosis, Stable uterine fibroid. Typhus panel was ordered, awaiting results. CRP today- 47.50 Urine and blood culture results are negative Continue prn meds for pain, fever, nausea, vomiting We will follow up on typhus panel results Elevated liver enzymes, POA, improving AST today was 209, alkaline phosphatase 415 Total bilirubin 0.7, direct bilirubin 0.3 Will Repeat LFTs tomorrow Acute cystitis POA Urine culture positive for leukocyte esterase indicating infection but the urine culture resulted in less [place] 34934 colony-forming units Will Continue IV antibiotics Continue Protonix 40 mg PO bid for Gastritis as recommended by GI Start heparin 5000 SQ q.12h for DVT prophylaxis Start docusate 100mg BID for constipation Monitor electrolytes and replace them according to the protocol ATTESTATION BY PHYSICIAN I have seen and examined the patient. I reviewed the documentation, medical decision making, and treatment plan as noted by the resident provider above. I agree with the findings and plan of care. JUNIOR HAAS MD, SHAJI MD Mar 03, 2025 12:20
[2025-03-03] MEDS ORDERED: PANT40TA54 PO (14:47)
--- NOTE | 2025-03-03 14:56 | PN ---
PROGRESS NOTE Date of Service: Mar 03, 2025 Time of Service: 14:42 SUBJECTIVE: 03/03 - Patient was seen and examined at bedside today in room 313. Patient reports feeling better. Patient afebrile with Tmax of 98.1. Patient denies abdominal pain. She denies headaches, nausea, vomiting, chest pain, palpitations, difficulty in breathing, diarrhea. Labs WBC 5.8, hemoglobin 10.4, potassium 4.0, Elevated LFTs: AST today 209, Alkaline phosphatase 415. Pending typhus panel results. CT abdomen w contrast was negative for suspected pelvic ab scess, impression shows: mild fatty liver, stable uterine fibroid, bladder wall inflammation suggestive of cystitis. Direct Peyton test was negative. Pending SPEP, UPEP, and free light chain - if monoclonal proteins then recommend bone marrow biopsy. REVIEW OF SYSTEMS CONSTITUTIONAL: Denies fever, chills, or fatigue. HEAD/FACE: No signs of trauma. EENT: Denies eye pain, blurred vision, double vision, or light sensitivity. RESPIRATORY: Denies shortness of breath, cough, wheezing CARDIOVASCULAR: Denies chest pain, palpitation, syncope GASTROINTESTINAL/ABDOMINAL: Denies abdominal pain, constipation, diarrhea, n ausea or vomiting GENITOURINARY: Denies dysuria or hematuria. MUSCULOSKELETAL: Denies joint pain, tenderness, or trauma. INTEGUMENTARY: Denies rash or itchiness NEUROLOGICAL/PSYCH: Denies anxiety, depression, heat or cold intolerance. PHYSICAL EXAM EYES: Anicteric. Pupils equal and reactive. HENT: No oral thrush seen, moist Oral mucosa NECK: Supple, no JVD or thyromegaly. LUNGS: Good air entry. No rales, no rhonchi. CARDIOVASCULAR: S1, S2 regular. No murmur heard. ABDOMEN: Soft, non tender, bowel sounds present, no organomegaly CENTRAL NERVOUS SYSTEM: Awake, alert, oriented x 3. No focal deficits. SKIN: No rashes, no swelling. LYMPHATICS: No peripheral lymphadenopathy MUSCULOSKELETAL: No joint swelling, erythema or tenderness. EXTREMITIES: No cyanosis or clubbing BACK: No deformity, no pressure ulcer. GENITOURINARY: No dysuria or hematuria Vital Signs (last 8hr) Date Time Temp Pulse Resp B/P (MAP) Pulse Ox O2 Delivery O2 Flow Rate FiO2 03/03/25 12:00 98.2 68 16 94/52 96 Room Air 03/03/25 08:00 98.1 74 16 95/55 96 Room Air LABS: Laboratory: Test 03/03/25 05:09 Range/Units White Blood Count 5.8 4.8-10.8 K/uL Red Blood Count 3.49 L 4.00-5.50 MIL/uL Hemoglobin 10.4 L 12.0-16.0 g/dL Hematocrit 30.2 L 36-48 % Mean Corpuscular Volume 86.5 79-99 fL Mean Corpuscular Hemoglobin 29.8 27.0-33.0 pg Mean Corpuscular Hemoglobin Concent 34.4 32.0-36.0 g/dL Red Cell Distribution Width 13.2 11.0-15.5 % Platelet Count 259 130-400 K/uL Mean Platelet Volume 9.6 7.5-10.5 fL Immature Granulocyte % (Auto) 2.8 H 0-1 % Neutrophils (%) (Auto) 46.2 40.0-77.0 % Lymphocytes (%) (Auto) 39.7 21.0-51.0 % Monocytes (%) (Auto) 9.4 3.0-13.0 % Eosinophils (%) (Auto) 1.4 0.0-8.0 % Basophils (%) (Auto) 0.5 0.0-5.0 % Neutrophils # (Auto) 2.7 1.8-7.7 K/uL Lymphocytes # (Auto) 2.3 1.0-4.8 K/uL Monocytes # (Auto) 0.5 0.1-1.0 K/uL Eosinophils # (Auto) 0.08 0.00-0.70 K/uL Basophils # (Auto) 0.03 0.00-0.20 K/uL Absolute Immature Granulocyte (auto 0.16 0-1 K/uL Nucleated Red Blood Cells 0.0 0.0-0.19 % Sodium Level 141 136-145 mmol/L Potassium Level 4.0 3.5-5.1 mmol/L Chloride Level 104 101-111 mmol/L Carbon Dioxide Level 29 21-32 mmol/L Blood Urea Nitrogen 5 L 7-18 mg/dL Creatinine 0.4 L 0.5-1.0 mg/dL Glomerular Filtration Rate Calc 124 >90 mL/min Random Glucose 102 70-105 mg/dL Hemoglobin A1c 5.8 4.0-6.0 % Estimated Average Glucose (eAG) 120 70-126 mg/dL Total Calcium 8.9 8.5-10.1 mg/dL Total Bilirubin 0.7 0.2-1.0 mg/dL Direct Bilirubin 0.3 0.0-0.3 mg/dL Aspartate Amino Transf (AST/SGOT) 209 H 10-37 U/L Alanine Aminotransferase (ALT/SGPT) 162 #H 12-78 U/L Alkaline Phosphatase 415 #H 50-136 U/L C-Reactive Protein, Quantitative 47.50 H 0.5-3.0 mg/L Total Protein 6.2 6.0-8.3 g/dL Albumin 2.7 L 3.5-5.0 g/dL Triglycerides Level 136 30-200 mg/dL Cholesterol Level 189 <200 mg/dL LDL Cholesterol 125 H 0-99 mg/dL HDL Cholesterol 33 L 35-85 mg/dL DIAGNOSTICS / RADIOLOGY: [ ] ASSESSMENT: 1. Anemia 2. Persistent fever 3. Elevated liver enzymes PLAN: 1. Peripheral blood smear showed possibility of spherocytosis. Direct Peyton was ordered. 2. There is rouleaux phenomena. We will ask for SPEP, UPEP and free light chain. If there is monoclonal protein we will do a bone marrow biopsy. 3. Continue antibiotic treatment as per infectious disease specialist 4. Follow up outpatient in 2 weeks. ATTESTATION BY PHYSICIAN I have seen and examined the patient. I reviewed the documentation, medical decision making, and treatment plan as noted by the resident above. I agree with the findings and plan of care. Ace Simmons MD, PRIYA N Mar 03, 2025 14:56
[2025-03-03 15:15] LABS: FREE KAPPA LIGHT CHAINS,S 40.5 mg/L (3.3-19.4)
[2025-03-03 16:00] VITALS: BP 114/74; PULSE 74; RESP 16; TEMP 98.4
--- NOTE | 2025-03-03 17:01 | DS ---
Discharge Summary Hospital Course Summary: A 44-year-old female with no significant past medical history, obesity, and recent laparoscopic cholecystectomy presented with intermittent fever, chills, and severe right-sided abdominal pain radiating to the rectum. Initial evaluation revealed fever, tachycardia, leukopenia, transaminitis, and elevated alkaline phosphatase, with imaging showing mild fatty liver, acute cystitis, constipation, and a uterine fibroid. She was assessed for sepsis secondary to possible cholangitis, persistent fevers, elevated liver enzymes, and post- surgical complications. Infectious diseases was consulted for persistent fevers of unknown source, and empiric antibiotics (Zosyn and doxycycline) were initia lynne per recommendations. MRCP, CT, and ultrasound showed no biliary ductal dilation or choledocholithiasis, and cultures remained negative. EGD revealed gastritis, managed with pantoprazole. Doppler ultrasound and echocardiogram were unremarkable. The patients fevers persisted but gradually decreased in frequency, and her abdominal pain improved. Laboratory monitoring showed impro ving liver enzymes and normalization of electrolytes; hyponatremia and hypochloremia resolved with appropriate management. Urine culture was positive for leukocyte esterase but had low colony counts, and acute cystitis was treated with continued IV antibiotics. DVT prophylaxis with heparin and bowel regimen for constipation were initiated. CRP remained elevated, and a typhus panel was ordered. The plan included ongoing IV fluids, prn medications for pain and fever, daily monitoring of liver function tests, and outpatient follow-up with gastroenterology and surgery. The patients clinical status improved, with resolution of abdominal pain and normalization of most laboratory parameters. Today Patient reports feeling better. She didn't complain of fever and has been off Tylenol. her Tmax in the last 24 hours was 98.1. Patient denies abdominal pain. She denies headaches, nausea, vomiting, chest pain, palpitations, difficulty in breathing, diarrhea. Labs WBC 5.8, hemoglobin 10.4, potassium 4.0, AST today 209, Alkaline phosphatase 415. CT abdomen w contrast was negative for suspected pelvic abscess. Patient will be discharged with doxycycline 500 mg for 5 days as per infectious disease recommendation. Technical Account Representative(s): Infectious disease consult was done by Dr. Juarez ASSESSMENT: Persistent fevers. Leukocytosis. Abdominal pain. Elevated liver enzymes. Thrombocytopenia. Recent laparoscopic cholecystectomy last month. PLAN: Continue Zosyn IV. Continue doxycycline. Continue pain management. We will follow up on the repeat blood cultures. Continue GI prophylaxis. Hematology has evaluated patient. Hematology consult was done by Dr. Simmons ASSESSMENT: 1. Anemia 2. Persistent fever 3. Elevated liver enzymes PLAN: 1. Peripheral blood smear showed possibility of spherocytosis. Direct Peyton was ordered. 2. There is rouleaux phenomena. We will ask for SPEP, UPEP and free light chain. If there is monoclonal protein we will do a bone marrow biopsy. 3. Continue antibiotic treatment as per infectious disease specialist 4. Follow up outpatient in 2 weeks. Gastroenterology consult was done by Dr. Ray. Assessment: Abdominal pain Gastritis Status post cholecystectomy Hepatic steatosis Plan: MRCP negative for choledocholithiasis Clear fluids and advance diet as toelrated Pantoprazole 40mg po bid Pain meds as needed (avoid NSAIDS) Recommend patient f/u at [facility] in one week for pathology results and further management. Please call with questions, concerns, and change in clinical status. Thank you for this consult Procedure(s): [place] [address] [id number] IMAGING REPORT Signed PATIENT: BALJIT LISA MR#: [id number] : 1980 SEX: F AGE: 44 LOCATION: [facility] ORDER 24 STATUS: [facility] REPORT#: [id number] SERVICE 23 REASON: Abdominal Pain ORDERING PHYSICIAN: KELTON RICE PROCEDURE: ABD PEL W - CT ABDOMEN/PELVIS W/CONTRAST EXAM: CT Abdomen and Pelvis with IV contrast CLINICAL HISTORY: Pain. TECHNIQUE: Postcontrast thin collimated axial CT images of the abdomen and pelvis were obtained, with sagittal and coronal reformatted images also submitted. CT scan is done according to ALARA (As Low As Reasonably Achievable). COMPARISON: None. FINDINGS: Mild subsegmental atelectasis in the included lungs. Status post cholecystectomy. Mild fatty liver. No focal abnormality within the pancreas, spleen, adrenals, or kidneys. The urinary bladder is empty with questionable mild cystitis. There is a 1.3 cm intramural fibroid around the right side of the uterus. Unremarkable ovaries. No obvious bowel wall thickening, dilatation, or obstruction. No obvious bowel wall thickening, dilatation, or obstruction. Unremarkable appendix. A component of mild constipation is present in the colon. Grossly unremarkable abdominal vessels. No pathological lymphadenopathy in the abdomen or pelvis. No ascites or pneumoperitoneum. No acute bony abnormality is evident. IMPRESSIONS: Uterine fibroid. Mild fatty liver. The urinary bladder is empty with questionable mild cystitis. A component of mild constipation is present in the colon. /[place] DICTATED BY: ADRI JOHNSON Jr., MD DATE: 02/24/25410 ELECTRONICALLY SIGNED BY: ADRI JOHNSON Jr., MD DATE: 02/24/25410 [place] [address] [address] IMAGING REPORT Signed PATIENT: BALJIT LISA MR#: [id number] : 1980 SEX: F AGE: 44 LOCATION: [facility] ORDER 9 STATUS: [facility] REPORT#: [id number] SERVICE 8 REASON: ruq pain ORDERING PHYSICIAN: YFN PALMA MD PROCEDURE: ABDRUQLTD - US ABDOMINAL RUQ\LTD EXAM: US Abdomen, Right Upper Quadrant. CLINICAL HISTORY: Right upper quadrant pain. TECHNIQUE: Right upper quadrant sonography performed with image documentation. COMPARISON: None provided. FINDINGS: The liver is normal in size and contour and measures up to 6.2 cm craniocaudally. Increased echogenicity of the liver parenchyma, compatible with fatty liver. Status post cholecystectomy. The CBD measures up to 4 mm in diameter. The visualized head and body of the pancreas are within normal limits. The pancreatic tail is obscured due to the bowel gases. The right kidney measures 9.9 x 4.9 x 4.5 cm, and it is normal in size and texture. IMPRESSION: No acute process. Mild fatty liver. Status post cholecystectomy. /[place] DICTATED BY: ADRI JOHNSON Jr., MD DATE: 02/24/25642 ELECTRONICALLY SIGNED BY: ADRI JOHNSON Jr., MD DATE: 02/24/25642 [facility] [address] [place] [address] IMAGING REPORT Signed PATIENT: BALJIT LISA MR#: [id number] : 1980 SEX: F AGE: 44 LOCATION: [facility] ORDER 9 STATUS: ADM IN REPORT#: [id number] SERVICE REASON: abdominal pain sa/p lap kyle ORDERING PHYSICIAN: MEERA MCFARLANE FIELD TECH PROCEDURE: MRCP WO - MRCP(ABDWO)CHOLANGIOPANCREATOG EXAMINATION: MRCP WITHOUT CONTRAST. CLINICAL HISTORY: Abdominal pain. COMPARISON: Prior CT abdomen and pelvis on 02/24/2025 TECHNIQUE : Multiplanar, multisequence MR images of the abdomen were obtained. MRCP images were created on an independent workstation, and made available in electronic format. FINDINGS: The liver, spleen, kidneys and bilateral adrenal glands appear grossly unremarkable. The visualized portions of the bowel are normal in appearance. There are no areas of increased signal intensity. The gallbladder is surgically absent. The common hepatic duct measures 0.35 cm. The common bile duct measures 0.25 cm is normal in caliber throughout its course without stricturing. There are no ductal stones. The pancreas is normal in bulk and signal intensities. No abnormally enhancing foci within. No peripancreatic fluid collections. The visualized portions of the thoracic and lumbar spine are normal. IMPRESSION: Status post cholecystectomy. No biliary duct dilatation. No evidence of choledocholithiasis. /[place] DICTATED BY: JAQUAN CORNELL MD DATE: 02/25/251204 ELECTRONICALLY SIGNED BY: JAQUAN CORNELL MD DATE: 02/25/251204 [facility] [address] [place], [place] [id number] IMAGING REPORT Signed PATIENT: BALJIT LISA MR#: [id number] : 1980 SEX: F AGE: 44 LOCATION: [facility] ORDER STATUS: ADM IN REPORT#: [id number] SERVICE 14 REASON: Fever of unknown origin ORDERING PHYSICIAN: TAMAR WELLS MD PROCEDURE: CXR1VW - CHEST 1VW CHEST 1VW REASON: Fever of unknown origin COMPARISON: None. FINDINGS: Single view of the chest was obtained. Lungs are clear. Heart size is normal. There is no pulmonary vascular congestion. Mediastinum and bony thorax appear unremarkable. IMPRESSION: 1. Normal single view chest x-ray. DICTATED BY: RAGHU MARQUES MD DATE: 02/25/251546 ELECTRONICALLY SIGNED BY: RAGHU MARQUES MD DATE: 02/25/251548 [place] [address] IMAGING REPORT Signed PATIENT: BALJIT LISA MR#: [id number] : 1980 SEX: F AGE: 44 LOCATION: [facility] ORDER 1523 STATUS: ADM IN REPORT#: [id number] SERVICE 152 REASON: rule out DVT ORDERING PHYSICIAN: JONY SWARTZ MD PROCEDURE: VENOUS LIT - US VENOUS DOPPLER BILATERAL EXAMINATION: SPECTRAL DOPPLER ULTRASOUND EXAMINATION OF THE BILATERAL LOWER EXTREMITY VEINS. CLINICAL HISTORY: To rule out DVT. COMPARISON: None provided. TECHNIQUE: Real-time ultrasound scan of the veins of the bilateral lower extremity with color Doppler flow, spectral waveform analysis and compression. FINDINGS: DEEP VEINS: The common femoral, superficial femoral, and popliteal veins are echolucent and compressible. There is normal color Doppler flow throughout. The visualized calf veins appear patent. SUPERFICIAL VEINS: The greater saphenous veins are patent and compressible. SOFT TISSUES: No popliteal fossa cyst or other abnormalities. IMPRESSION: No deep venous thrombosis evident in the bilateral lower extremity. No superficial thrombophlebitis in the bilateral lower extremity. /[place] DICTATED BY: ADRI JOHNSON Jr., MD DATE: 03/01/2532 ELECTRONICALLY SIGNED BY: ADRI JOHNSON Jr., MD DATE: 03/01/[address] [address] IMAGING REPORT Signed PATIENT: BALJIT LISA MR#: [id number] : 1980 SEX: F AGE: 44 LOCATION: [facility] ORDER 1541 STATUS: ADM IN REPORT#: [id number] SERVICE 0000 REASON: Persistent fever with unkown source of infection ORDERING PHYSICIAN: TAMAR WELLS MD PROCEDURE: ECHO CMP - ECHO 2-D COMPLETE APPROVED REPORT EXAM: Two-dimensional and M-mode echocardiogram with Doppler and color Doppler. INDICATION ICD: Persistent fever with unkown source of infection 2D Dimensions RVDd 3.4 cm LVEF(%) 66.4 (>50%) LVED Vol(simp.) 72.0 mL IVSd 0.6 (0.7-1.1cm) FS(%) 37 % LVES Vol(simp.) 27.0 mL LVDd 5.0 (3.8-5.6cm) LA (2D) 3.5 (1.6-4.0cm) LVEF(%, simp.) 63 % PWd 0.8 (0.7-1.1cm) Ao Root(2D) 2.9 (2.0-3.7cm) LA ESV INDEX (BP) 2 7.46 mL/m2 IVSs 0.9 cm LVOT diam 2.0 (1.8-2.4cm) LVDs 3.2 (2.5-4.0cm) PWs 1.1 cm Deformation Strain Apical 4 -19.2 % Apical 2 -20.6 % Apical 3 -16.6 % Global Strain -18.8 % M-Mode Dimensions EPSS 0.7 cm LA (MM) 3.4 (1.6-4.0cm) Ao Root(MM) 2.7 (2.0-3.7cm) Aortic Valve AoV Vmax 1.4 m/s Ao Peak GR 8.0 mmHg LVOT Vmax 1.0 m/s AoV VTI 0.3 m Ao Mean GR 4.5 mmHg LVOT VTI 0.20 m TERESA (VMAX) 2.25 cm2 TERESA (VTI) 2.2 cm2 Mitral Valve MV E Vmax 49.5 cm/s DECEL Time 146 ms MV A Vmax 69.2 cm/s P 1/2 T 33 ms E/A ratio 0.7 MVA (PHT) 6.7 cm2 TDI E/E' Medial 7.0 E/E' Lateral 5.3 Medial E' Peak V 7.11 cm/s Lateral E' Peak V 9.34 cm/s Pulmonary Valve PV Vmax 1.0 m/s PV VTI 0.17 m PV Mean GR 2.5 mmHg PV Peak GR 4.3 mmHg Tricuspid Valve TR Vmax 1.9 m/s RAP (EST) 3 mmHg RVSP 17.8 mmHg TR Peak GR 14.8 mmHg Left Ventricle The left ventricle is normal size. Normal left ventricular systolic wall motion. There is normal left ventricular wall thickness. Left ventricle systolic function is low-normal, estimated LVEF 50-55%. Grade 1 diastolic dysfunction. Right Ventricle The right ventricle is normal size. The right ventricular systolic function is normal. Atria The left atrium size is normal. The right atrium size is normal. Aortic Valve The aortic valve is normal in structure. Trace aortic regurgitation. No aortic v alvular vegetation noted. There is no aortic valvular stenosis. Mitral Valve The mitral valve is normal in structure. Trace mitral regurgitation. There are no mitral valve vegetation noted. There is no mitral valve stenosis. Tricuspid Valve The tricuspid valve is normal in structure. Trace tricuspid regurgitation. RVSP is 15 mmHg. There is no tricuspid valve vegetation. Pulmonic Valve Pulmonic valve is not well visualized. Great Vessels The aortic root is normal in size. The IVC is normal in size and collapses >50% with inspiration. Pericardium There is no pericardial effusion. Other Information Quality : Adequate Conclusion The cardiac chambers are normal in size. There is normal left ventricular wall thickness. Normal left ventricular systolic wall motion. Left ventricle systolic function is low-normal, estimated LVEF 50-55%. Grade 1 diastolic dysfunction. Trace aortic regurgitation. Trace mitral regurgitation. Trace tricuspid regurgitation. No obvious vegetations were seen on any of the valves. PASP is 18 mmHg. There is no pericardial effusion. DICTATED BY: ILENE SANCHEZ MD DATE: 03/01/25 0939 ELECTRONICALLY SIGNED BY: ILENE SANCHEZ MD DATE: 03/02/25 0028 [facility] [address] [place] [address] IMAGING REPORT Signed PATIENT: BALJIT LISA MR#: [id number] : 1980 SEX: F AGE: 44 LOCATION: [facility] ORDER 23 STATUS: ADM IN REPORT#: [id number] SERVICE 21 REASON: Evaluation for intraabdmonial pathology, Persistent Fever ORDERING PHYSICIAN: TAMAR WELLS MD PROCEDURE: ABD PEL W - CT ABDOMEN/PELVIS W/CONTRAST EXAMINATION : CT Abdomen and Pelvis with contrast. CLINICAL HISTORY: Evaluation for intraabdmonial pathology, Persistent Fever/ Evaluation for intraabdmonial pathology. TECHNIQUE: Multiple contiguous axial CT images were obtained through the abdomen and pelvis following the administration of intravenous contrast. Coronal and sagittal reconstructions were also obtained. COMPARISON: Prior CT abdomen and pelvis on 02/24/2025 FINDINGS: Included chest reveals fibroatelectatic bands in the left lower lobe. The liver is normal in caliber with uniform decreased density. The gallbladder is surgically absent. The spleen, pancreas, adrenal glands and kidneys appear within normal limits. Bowel loops are normal in caliber without evidence of obstruction, ileus, or obvious bowel wall thickening. Normal appendix. Urinary bladder is well distended with mild wall thickening. Uterus is normal in caliber with stable right lateral wall uterine fibroid measuring 1.3 x 1.1 cm. Both the ovaries are normal. There is no ascites or lymphadenopathy. The opacified abdominal and pelvic vessels are patent. There are atheromatous wall calcification of the aorta and iliac arteries. No acute or suspicious osseous abnormality. There are multilevel mild degenerative spondylotic changes of the spine. IMPRESSION: Thickening of the urinary bladder which may be due to underdistention or cystitis. No bowel obstruction or inflammation. Normal appendix. Normal kidneys. No hydronephrosis. Hepatic steatosis. Status post cholecystectomy. Stable right lateral wall uterine fibroid. /[place] DICTATED BY: JAQUAN CORNELL MD DATE: 03/02/251250 ELECTRONICALLY SIGNED BY: JAQUAN CORNELL MD DATE: 03/02/251250 Assessment/Plan: ASSESSMENT: Sepsis secondary to possible cholangitis, POA Elevated liver enzymes, POA Persistent fevers, POA Recent status post lap cholecystectomy POA Obesity POA Acute cystitis POA Constipation, POA Hyponatremia POA, resolved Hypochloremia POA, resolved Uterine fibroid per CT POA Mild fatty liver per CT POA Discharge Instructions: Follow up with PCP with 2,3 days Follow up with Dr. Simmons, hematology within 6 weeks Follow up with GI consult, within 1-2 weeks Take antibiotics as prescibed by ID consult Resume activity as tolerated Avoid alcohol and fatty foods Repeat liver function tests later, please coordinate with your PCP on this Monitor for Fever, chills, new onset of pain in abdomen, jaundice, dark urine or pale stools, persistent nausea, vomiting, confusion and seek immediate medical attention in such scenario Home Medications: Active Scripts Pantoprazole Sodium (Pantoprazole Sodium) 40 Mg Tablet., 1 TAB PO BID for 10 Days, #20 TAB 0 Refills Prov:JONY SWARTZ MD 03/03/25 New Medications: Pantoprazole Sodium (Pantoprazole Sodium) 40 Mg Tablet. 1 TAB PO BID for 10 Days, #20 TAB 0 Refills Time spent arranging discharge: 31-60 minutes ATTESTATION BY PHYSICIAN I have seen and examined the patient. I reviewed the documentation, medical decision making, and treatment plan as noted by the resident provider above. I agree with the findings and plan of care. JUNIOR HAAS MD, SHAJI MD Mar 03, 2025 17:01
--- NOTE | 2025-03-03 18:00 | NUR ---
DISCHARGE FOLLOW UP WITH MD, TAKE MEDICATIONS PRESCRIBED AND FOLLOW MD RECOMMENDATIONS
--- NOTE | 2025-03-03 20:28 | PN ---
INFECTIOUS DISEASE PROGRESS NOTE Date of Service: Mar 03, 2025 SUBJECTIVE: Patient was seen and examined at bedside in room 313. During rounding today patient is and a 24 hour urine collection process. Patient has remained afebrile for the past 24 hours, current temperature 98.2. Currently continues on Zosyn and doxycycline IV. From Infectious Disease standpoint patient can be discharged on doxycycline for 5 days. Prescription was written. PHYSICAL EXAM EYES: Anicteric. Pupils equal and reactive. HENT: No oral thrush seen, moist Oral mucosa NECK: Supple, no JVD or thyromegaly. LUNGS: Good air entry. No rales, no rhonchi. CARDIOVASCULAR: S1, S2 regular. No murmur heard. ABDOMEN: Soft, non tender, bowel sounds present, no organomegaly. CENTRAL NERVOUS SYSTEM: Awake, alert, oriented x 3. Abdominal pain POA. SKIN: No rashes, no swelling. LYMPHATICS: No peripheral lymphadenopathy. MUSCULOSKELETAL: No joint swelling, erythema or tenderness. EXTREMITIES: No cyanosis or clubbing. BACK: No deformity, no pressure ulcer. GENITOURINARY: No dysuria or hematuria. Vital Sign (Last 12 Hours) 03/03/25 03/03/25 03/03/25 09:50 12:00 16:00 Temp 98.2 98.4 Pulse 68 74 Resp 16 16 B/P (MAP) 94/52 114/74 Pulse Ox 96 96 98 O2 Delivery Room Air* Room Air Room Air O2 Flow Rate 0 FiO2 21 Intake & Output (last 24hrs) 0 03/02/25 03/02/25 03/03/25 14:59 22:59 06:59 Intake Total 285.0 ml 1000.0 ml Output Total 650 ml 700 ml 800 ml Balance -365.0 ml 300.0 ml -800 ml LABS: Laboratory: Test 03/03/25 05:09 03/02/25 12:05 Range/Units White Blood Count 5.8 4.8-10.8 K/uL Red Blood Count 3.49 L 4.00-5.50 MIL/uL Hemoglobin 10.4 L 12.0-16.0 g/dL Hematocrit 30.2 L 36-48 % Mean Corpuscular Volume 86.5 79-99 fL Mean Corpuscular Hemoglobin 29.8 27.0-33.0 pg Mean Corpuscular Hemoglobin Concent 34.4 32.0-36.0 g/dL Red Cell Distribution Width 13.2 11.0-15.5 % Platelet Count 259 130-400 K/uL Mean Platelet Volume 9.6 7.5-10.5 fL Immature Granulocyte % (Auto) 2.8 H 0-1 % Neutrophils (%) (Auto) 46.2 40.0-77.0 % Lymphocytes (%) (Auto) 39.7 21.0-51.0 % Monocytes (%) (Auto) 9.4 3.0-13.0 % Eosinophils (%) (Auto) 1.4 0.0-8.0 % Basophils (%) (Auto) 0.5 0.0-5.0 % Neutrophils # (Auto) 2.7 1.8-7.7 K/uL Lymphocytes # (Auto) 2.3 1.0-4.8 K/uL Monocytes # (Auto) 0.5 0.1-1.0 K/uL Eosinophils # (Auto) 0.08 0.00-0.70 K/uL Basophils # (Auto) 0.03 0.00-0.20 K/uL Absolute Immature Granulocyte (auto 0.16 0-1 K/uL Nucleated Red Blood Cells 0.0 0.0-0.19 % Sodium Level 141 136-145 mmol/L Potassium Level 4.0 3.5-5.1 mmol/L Chloride Level 104 101-111 mmol/L Carbon Dioxide Level 29 21-32 mmol/L Blood Urea Nitrogen 5 L 7-18 mg/dL Creatinine 0.4 L 0.5-1.0 mg/dL Glomerular Filtration Rate Calc 124 >90 mL/min Random Glucose 102 70-105 mg/dL Hemoglobin A1c 5.8 4.0-6.0 % Estimated Average Glucose (eAG) 120 70-126 mg/dL Total Calcium 8.9 8.5-10.1 mg/dL Total Bilirubin 0.7 0.2-1.0 mg/dL Direct Bilirubin 0.3 0.0-0.3 mg/dL Aspartate Amino Transf (AST/SGOT) 209 H 10-37 U/L Alanine Aminotransferase (ALT/SGPT) 162 #H 12-78 U/L Alkaline Phosphatase 415 #H 50-136 U/L C-Reactive Protein, Quantitative 47.50 H 0.5-3.0 mg/L Total Protein 6.2 6.0-8.3 g/dL Albumin 2.7 L 3.5-5.0 g/dL Triglycerides Level 136 30-200 mg/dL Cholesterol Level 189 <200 mg/dL LDL Cholesterol 125 H 0-99 mg/dL HDL Cholesterol 33 L 35-85 mg/dL Free [place] Light Chains, Quant 40.5 H 3.3-19.4 mg/L Free Lambda Light Chains, Quant 20.8 5.7-26.3 mg/L Free [place]/Lambda Light Chain Ratio 1.95 H 0.26-1.65 ASSESSMENT: Persistent fevers. 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 Leukocytosis. Abdominal pain, resolving. Elevated liver enzymes. Thrombocytopenia. Recent laparoscopic cholecystectomy last month. PLAN: Continue Zosyn IV. Continue doxycycline. From Infectious Disease standpoint patient can be discharged on doxycycline for 5 days. Prescription was written. This case was reviewed and discussed with my supervising physician Dr. Chairez and the above assessment and plan was formulated and agreed upon. ATTESTATION BY PHYSICIAN I have seen and examined the patient. I reviewed the documentation, medical decision making, and treatment plan as noted by the mid-level provider above. I agree with the findings and plan of care. JAMES CHAIREZ MD, [facility] Mar 03, 2025 20:28
[2025-03-04 16:13] LABS: ALBUMIN (IFE & ELECTROPHOR) 2.9 g/dL (2.9-4.4); ALBUMIN/GLOBULIN RATIO (IFE) 1.0 (0.7-1.7); ALPHA-1 (IFE & PEP) 0.4 g/dL (0.0-0.4); ALPHA-2 (IFE & PEP) 0.6 g/dL (0.4-1.0); BETA (IFE & ELP) 1.1 g/dL (0.7-1.3); GAMMA GLOBULINS (IFE & ELP) 1.1 g/dL (0.4-1.8); GLOBULIN TOTAL (IFE) 3.2 g/dL (2.2-3.9); IGA (IFE) 277 mg/dL (87-352); IGG (IMMUNOFIXATION) 1042 mg/dL (586-1602); IGM (IMMUNOFIXATION) 207 mg/dL (26-217); M-SPIKE (IEP) Not Observed g/dL (Not Observed)
== END 2025-03-03 16:10 | disposition home or self-care (01) | DRG 872 ==
LOC: EDH 22:19 → EDHIP 02-24 05:30 → 3CH 02-25 18:49
PROVIDERS: ADMIT Internal Medicine; ATTEND Internal Medicine
PROC: 0DB68ZX Excision of Stomach, Via Natural or Artificial Opening Endoscopic, Diagnostic (ICD-10-PCS; principal; 2025-02-26)
PROC: 0DB78ZX Excision of Stomach, Pylorus, Via Natural or Artificial Opening Endoscopic, Diagnostic (ICD-10-PCS; 2025-02-26)
DX: A41.9 Sepsis, unspecified organism (principal); K83.09 Other cholangitis; E87.1 Hypo-osmolality and hyponatremia; N30.00 Acute cystitis without hematuria; E66.9 Obesity, unspecified; E87.8 Other disorders of electrolyte and fluid balance, not elsewhere classified; D25.9 Leiomyoma of uterus, unspecified; K76.0 Fatty (change of) liver, not elsewhere classified; K29.70 Gastritis, unspecified, without bleeding; D58.0 Hereditary spherocytosis; D64.9 Anemia, unspecified; D69.6 Thrombocytopenia, unspecified; D72.819 Decreased white blood cell count, unspecified; K59.00 Constipation, unspecified; Z90.49 Acquired absence of other specified parts of digestive tract; Z79.899 Other long term (current) drug therapy; Z68.31 Body mass index [BMI] 31.0-31.9, adult
CPT/HCPCS: 36415; 43239; 71045; 74177; 74181; 76705; 80048; 80053; 80061; 80074; 80076; 81001; 81025; 83036; 83521; 83540; 83550; 83605; 83690; 83735; 84145; 84156; 84166; 84436; 84443; 84480; 85025; 85027; 86140; 86325; 86334; 86757; 86880; 87040; 87086; 87635; 87804; 87880; 88184; 88185; 88189; 88305; 88312; 93306; 93356; 93970; 96361; 96374; 99285; A4606; G0378; J0696; J1644; J2003; J2250; J2270; J2470; J2543; J2704; J3475; J3490; J7030; Q9967; A4215; A4222; A4620